=== PATIENT | female | born 1960 | race Caucasian/White ===

== ENCOUNTER 2018-03-04 16:36 | Emergency (ER) | payer MEDICARE, MEDICAID ==
[~2018-03-04] VITALS: Ht 165.1 cm; Wt 90.0 kg
[~2018-03-04 16:36] MED LIST: NAPR250T4 PO; ONDA4TAB12 PO; POTA99TA9 PO
[2018-03-04] MEDS ORDERED: LORazepam 2 mg/ml vial IV ONE (16:45)
[2018-03-04] MEDS ORDERED: haloperidol lactate 5mg/ml inj IM ONE (16:45)
[2018-03-04] MEDS ORDERED: normal saline 1000ML IV soln IVB ONE (16:45)
[2018-03-04] MEDS ORDERED: diphenhydrAMINE 50 mg/ml inj IV ONE (16:45)
[2018-03-04 17:20] LABS: ALANINE AMINOTRANSFERASE 30 U/L (12-78); ALBUMIN 4.3 G/DL (3.4-5.0); ALBUMIN/GLOBULIN RATIO 1.3 (1.1-1.5); ALKALINE PHOSPHATASE 131 IU/L (46-116); ANION GAP 12 (8-16); ASPARTATE AMINO TRANSFERASE 30 U/L (10-37); BILIRUBIN,TOTAL 0.9 MG/DL (0.1-1.0); BLOOD UREA NITROGEN 10 MG/DL (7-18); BUN/CREATININE RATIO 8.8 (6.6-38.0); CALCIUM 10.1 MG/DL (8.5-10.1); CHLORIDE 97 MMOL/L (99-107); CREATININE 1.13 MG/DL (0.40-0.90); GLUCOSE 154 MG/DL (70-104); SODIUM 136 MMOL/L (135-145); TOTAL CARBON DIOXIDE 27.2 MMOL/L (24-32); TOTAL PROTEIN 7.6 G/DL (6.4-8.2); eGFR 49 ML/MIN
[2018-03-04 17:21] LABS: POTASSIUM 4.1 MMOL/L (3.5-5.1)
[2018-03-04] MEDS ORDERED: proMETHazine 25mg tablet PO ONE (17:55)
[2018-03-04 17:59] LABS: BASOPHILS % (AUTO) 0.1 % (0-1); EOSINOPHILS % (AUTO) 0 % (0-6); LYMPHOCYTES # (AUTO) 0.6 X10'3 (1.1-4.8); LYMPHOCYTES % (AUTO) 5.9 % (21-51); MEAN CORPUSCULAR HEMOGLOBIN 29.8 PG (27.0-31.0); MEAN CORPUSCULAR HGB CONC 34.8 % (33.0-36.5); MEAN CORPUSCULAR VOLUME 85.7 FL (78-98); MEAN PLATELET VOLUME 7.7 FL (7.4-10.4); MONOCYTES # (AUTO) 0.2 X10'3 (0-0.9); MONOCYTES % (AUTO) 2.2 % (2-12); NEUTROPHILS # (AUTO) 9.3 X10'3 (1.8-7.7); NEUTROPHILS % (AUTO) 91.8 % (42-75); PLATELET COUNT 214 X10'3 (140-440); RED BLOOD COUNT 5.03 X10'6 (4.20-5.60); RED CELL DISTRIBUTION WIDTH 13.7 % (11.5-14.5); WHITE BLOOD COUNT 10.1 X10'3 (4.5-11.0)
[2018-03-04] MEDS ORDERED: PHE12.5T PO (18:35)
[2018-03-04] MEDS ORDERED: HYDROcodone/acetaminophen 10/325mg tab PO ONE (18:40)
[2018-03-04] MEDS ORDERED: ondansetron/PF 4mg/2ml inj IV ONE (19:30)
[2018-03-04] MEDS ORDERED: ketorolac trometh. 30mg/ml inj. IV ONE (19:30)
[2018-03-04 19:50] VITALS: BP 141/93
== END 2018-03-04 20:11 | disposition home or self-care (01) ==
LOC: ER 16:36
DX: G43.A1 Cyclical vomiting, in migraine, intractable (principal); E78.00 Pure hypercholesterolemia, unspecified; I10 Essential (primary) hypertension; J44.9 Chronic obstructive pulmonary disease, unspecified; G89.29 Other chronic pain; F12.10 Cannabis abuse, uncomplicated; Z87.442 Personal history of urinary calculi; Z90.49 Acquired absence of other specified parts of digestive tract; Z98.890 Other specified postprocedural states; Z56.0 Unemployment, unspecified
CPT/HCPCS: 36415; 80053; 85025; 96361; 96372; 96374; 96375; 99284; J1200; J1630; J1885; J2060; J2405; J7030; Q0169

== ENCOUNTER 2018-05-05 19:42 | Emergency (ER) | payer MEDICARE, MEDICAID ==
[~2018-05-05] VITALS: Ht 157.5 cm; Wt 90.9 kg
[~2018-05-05 19:42] MED LIST changes: +PHE12.5T PO
[2018-05-05 20:20] LABS: BASOPHILS % (AUTO) 0.2 % (0-1); EOSINOPHILS % (AUTO) 0 % (0-6); HEMATOCRIT 45.5 % (35.0-45.0); LYMPHOCYTES # (AUTO) 1.1 X10'3 (1.1-4.8); LYMPHOCYTES % (AUTO) 5.6 % (21-51); MEAN CORPUSCULAR HEMOGLOBIN 30.1 PG (27.0-31.0); MEAN CORPUSCULAR HGB CONC 35.2 % (33.0-36.5); MEAN CORPUSCULAR VOLUME 85.6 FL (78-98); MEAN PLATELET VOLUME 7.9 FL (7.4-10.4); MONOCYTES # (AUTO) 0.5 X10'3 (0-0.9); MONOCYTES % (AUTO) 2.6 % (2-12); NEUTROPHILS # (AUTO) 17.3 X10'3 (1.8-7.7); NEUTROPHILS % (AUTO) 91.6 % (42-75); PLATELET COUNT 302 X10'3 (140-440); RED BLOOD COUNT 5.32 X10'6 (4.20-5.60); RED CELL DISTRIBUTION WIDTH 13.3 % (11.5-14.5); WHITE BLOOD COUNT 18.9 X10'3 (4.5-11.0)
[2018-05-05 20:29] LABS: PROTHROMBIN TIME 10.3 SECONDS (9.0-12.0)
[2018-05-05 20:34] LABS: ALANINE AMINOTRANSFERASE 35 U/L (12-78); ALBUMIN 4.4 G/DL (3.4-5.0); ALBUMIN/GLOBULIN RATIO 1.2 (1.1-1.5); ALKALINE PHOSPHATASE 136 IU/L (46-116); ANION GAP 15 (8-16); ASPARTATE AMINO TRANSFERASE 24 U/L (10-37); BILIRUBIN,TOTAL 1.1 MG/DL (0.1-1.0); BLOOD UREA NITROGEN 18 MG/DL (7-18); CALCIUM 10.2 MG/DL (8.5-10.1); CHLORIDE 97 MMOL/L (99-107); CREATININE 1.99 MG/DL (0.40-0.90); GLUCOSE 171 MG/DL (70-104); POTASSIUM 3.7 MMOL/L (3.5-5.1); SODIUM 134 MMOL/L (135-145); TOTAL CARBON DIOXIDE 22.5 MMOL/L (24-32); TOTAL PROTEIN 8.2 G/DL (6.4-8.2); eGFR 26 ML/MIN
[2018-05-05] MEDS ORDERED: normal saline 1000ML IV soln IV ONE (20:40)
[2018-05-05] MEDS ORDERED: haloperidol lactate 5mg/ml inj IM ONE (20:40)
[2018-05-05] MEDS ORDERED: LORazepam 2 mg/ml vial IV ONE (20:40)
[2018-05-05] MEDS ORDERED: ondansetron/PF 4mg/2ml inj IV ONE (20:40)
[2018-05-05 22:54] VITALS: BP 148/87
== END 2018-05-05 23:03 | disposition home or self-care (01) ==
LOC: ER 19:43
DX: F12.288 Cannabis dependence with other cannabis-induced disorder (principal); G43.A0 Cyclical vomiting, in migraine, not intractable; E78.00 Pure hypercholesterolemia, unspecified; I10 Essential (primary) hypertension; J44.9 Chronic obstructive pulmonary disease, unspecified; Z90.49 Acquired absence of other specified parts of digestive tract; Z98.890 Other specified postprocedural states; Z56.0 Unemployment, unspecified; Z79.899 Other long term (current) drug therapy
CPT/HCPCS: 36415; 80053; 85025; 85610; 96361; 96372; 96374; 96375; 99284; J1630; J2060; J2405

== ENCOUNTER 2018-06-23 01:20 | Inpatient (IN) | payer MEDICARE, MEDICAID ==
[~2018-06-23] VITALS: Ht 157.5 cm; Wt 78.8 kg
[2018-06-23] VITALS (16 sets, daily range): BP systolic 80–115; BP diastolic 59–95
[2018-06-23] MEDS ORDERED: haloperidol lactate 5mg/ml inj IM STA (01:21)
[2018-06-23] MEDS ORDERED: diphenhydrAMINE 50 mg/ml inj IM STA (01:21)
[2018-06-23] MEDS ORDERED: LORazepam 2 mg/ml vial IM STA (01:21)
[2018-06-23] MEDS ORDERED: normal saline 1000ML IV soln IVB ONE (01:35)
[2018-06-23 01:49] LABS: CLARITY,URINE CLOUDY (Clear); COLOR,URINE AMBER (Yellow); GLUCOSE, URINE NEGATIVE (Neg); KETONES,URINE NEGATIVE (Neg); LEUKOCYTE ESTERASE ,URINE NEGATIVE (Neg); NITRITES, URINE NEGATIVE (Neg); OCCULT BLOOD,URINE LARGE (Neg); PROTEIN,URINE >=300 mg/dl (Neg)
[2018-06-23 01:52] LABS: UA COLLECTION TYPE FOLEY CATH
[2018-06-23 01:54] LABS: BASOPHILS % (AUTO) 0.1 % (0-1); EOSINOPHILS # (AUTO) 0.4 X10'3 (0-0.9); EOSINOPHILS % (AUTO) 1.8 % (0-6); HEMATOCRIT 45.3 % (35.0-45.0); HEMOGLOBIN 15.6 g/dl (12.0-16.0); LYMPHOCYTES # (AUTO) 1.4 X10'3 (1.1-4.8); LYMPHOCYTES % (AUTO) 6.9 % (21-51); MEAN CORPUSCULAR HEMOGLOBIN 29.7 PG (27.0-31.0); MEAN CORPUSCULAR HGB CONC 34.4 % (33.0-36.5); MEAN CORPUSCULAR VOLUME 86.3 FL (78-98); MEAN PLATELET VOLUME 7.9 FL (7.4-10.4); MONOCYTES # (AUTO) 0.7 X10'3 (0-0.9); MONOCYTES % (AUTO) 3.4 % (2-12); NEUTROPHILS # (AUTO) 17.5 X10'3 (1.8-7.7); NEUTROPHILS % (AUTO) 87.8 % (42-75); PLATELET COUNT 320 X10'3 (140-440); RED BLOOD COUNT 5.25 X10'6 (4.20-5.60); RED CELL DISTRIBUTION WIDTH 13.9 % (11.5-14.5)
[2018-06-23 02:01] LABS: URINE AMPHETAMINE SCREEN POSITIVE (Neg); URINE BARBITUATE SCREEN NEGATIVE (Neg); URINE BENZODIAZEPINES SCREEN NEGATIVE (Neg); URINE CANNABINOID SCREEN POSITIVE (Neg); URINE COCAINE SCREEN NEGATIVE (Neg); URINE METHADONE SCREEN NEGATIVE (Neg); URINE OPIATE SCREEN POSITIVE (Neg); URINE PHENCYCLIDINE SCREEN NEGATIVE (Neg)
[2018-06-23 02:06] LABS: PARTIAL THROMBOPLASTIN TIME 24 SECONDS (22-32); PROTHROMBIN TIME 10.7 SECONDS (9.0-12.0)
[2018-06-23] MEDS ORDERED: LORazepam 2 mg/ml vial IV ONE ×2 (02:15→03:00)
[2018-06-23 02:24] LABS: AMORPHOUS URATES 3+
[2018-06-23 02:25] LABS: BACTERIA,URINE 1+ /HPF (Neg); MUCUS STRANDS MODERATE /LPF (Neg); RBC,URINE 0-2 /HPF (0-2); SQUAMOUS EPITHELIAL CELL,UR MANY /LPF (FEW); WBC,URINE 0-4 /HPF (0-4)
[2018-06-23 02:35] LABS: ALANINE AMINOTRANSFERASE 67 U/L (12-78); ALBUMIN 4.2 G/DL (3.4-5.0); ALBUMIN/GLOBULIN RATIO 1.2 (1.1-1.5); ALKALINE PHOSPHATASE 144 IU/L (46-116); ANION GAP 17 (8-16); ASPARTATE AMINO TRANSFERASE 80 U/L (10-37); BILIRUBIN,TOTAL 1.1 MG/DL (0.1-1.0); BLOOD UREA NITROGEN 14 MG/DL (7-18); BUN/CREATININE RATIO 7.7 (6.6-38.0); CHLORIDE 96 MMOL/L (99-107); CREATININE 1.82 MG/DL (0.40-0.90); GLUCOSE 217 MG/DL (70-104); LACTIC SEPSIS 8.3 MMOL/L (0.4-2.0); POTASSIUM 3.5 MMOL/L (3.5-5.1); SODIUM 134 MMOL/L (135-145); TOTAL CARBON DIOXIDE 21.5 MMOL/L (24-32); TOTAL PROTEIN 7.7 G/DL (6.4-8.2); eGFR 28 ML/MIN
[2018-06-23 02:37] LABS: ETHANOL < 0.010 GM/DL (0.0-0.010); TROPONIN I < 0.04 NG/ML (0.0-0.05)
[2018-06-23] MEDS ORDERED: normal saline 1000ML IV soln IV ONE (03:05)
[2018-06-23] MEDS ORDERED: FENTANYL-0.9 % NACL/PF 100 ML IV ONE (03:30)
[2018-06-23] MEDS ORDERED: CefTRIAXone 2gm/D5W 50ml 50 ML IV ONE (03:35)
[2018-06-23] MEDS: midazolam 100mg in NS 100ml 100 ML IV PRN ×3 (03:48→19:25)
[2018-06-23 04:01] LABS: ABG BASE EXCESS -3.4 mmol/L (-2.0-3.0); ABG HCO3 21.4 mmol/L (22.0-26.0); ABG OXYGEN SATURATION 93.9 % (95-98); ABG PCO2 (T) 39.8 mmHg (32.0-45.0); ABG PH (T) 7.353 (7.350-7.450); ABG PO2 (T) 81.7 mmHg (83-108); FCOHb 0.9 % (0.5-1.5); FMetHb 0.2 % (0.3-1.12); FO2Hb 92.9 % (94-100); MINUTE VOLUME 5 L/min; PATIENT TEMPERATURE 37.9; PEEP 5 cm H2O; RESPIRATORY RATE 12 b/min; RESPIRATORY RATE (OBSERVED) 12 b/min; TIDAL VOLUME 400 mL; TOTAL HEMOGLOBIN 15.2 G/dl (12.0-16.0)
[2018-06-23] MEDS: metoprolol tartrate 1mg/ml inj IV SCH ×7 (04:59→06:11)
[2018-06-23] MEDS: K, MAG and/or Phos replacement - Verify level? MC SCH ×2 (05:10→08:00)
[2018-06-23] MEDS ORDERED: acetaminophen 325mg tablet PO PRN ×2 (05:10)
[2018-06-23] MEDS ORDERED: magnesium hydroxide 30ml (MOM) UD suspension PO PRN (05:10)
[2018-06-23] MEDS ORDERED: potassium Cl 40MEQ/NS 500ml 500 ML IV PRN (05:10)
[2018-06-23] MEDS ORDERED: potassium Cl 20 mEq SR tablet PO PRN (05:10)
[2018-06-23] MEDS ORDERED: morphine 4 MG/ML inj SYRINge IV PRN ×2 (05:10)
[2018-06-23] MEDS ORDERED: vancomycin/NS 1 GM ADD-VANTAGE 250 ML IV ONE (05:25)
[2018-06-23] MEDS: normal saline 1000ml 1,000 ML IV SCH ×2 (05:41→19:55)
[2018-06-23] MEDS ORDERED: vancomycin/NS 500MG ADD-VANT 100 ML IV ONE (07:30)
[2018-06-23] MEDS ORDERED: rocuronium bromide 100mg/10ml (10mg/ml) injection IV ONE (09:00)
[2018-06-23] MEDS ORDERED: etomidate 2mg/ml inj. ONE (09:00)
[2018-06-23] MEDS: enoxaparin 40mg/0.4ml syringe SUBCUT SCH (09:15)
[2018-06-23] MEDS: pantoprazole 40 MG vial IV SCH (09:15)
[2018-06-23] MEDS: piperacillin/tazo 3.375gm/50ml 50 ML IV SCH ×3 (09:16→19:54)
[2018-06-23] MEDS: lactobacillus rhamnosus 10,000 MMU CELLS/CAPSULE PO SCH (19:54)
[2018-06-23] MEDS ORDERED: normal saline 500ml IV soln 500 ML IV PRN (20:05)
[2018-06-23] MEDS: FENTANYL-0.9 % NACL/PF 100 ML IV PRN (20:49)
[2018-06-24] VITALS (23 sets, daily range): BP systolic 82–147; BP diastolic 50–90
[2018-06-24] MEDS: midazolam 100mg in NS 100ml 100 ML IV PRN ×4 (01:57→22:40)
[2018-06-24] MEDS: piperacillin/tazo 3.375gm/50ml 50 ML IV SCH ×4 (01:59→19:21)
[2018-06-24 03:21] LABS: ABG BASE EXCESS -1.4 mmol/L (-2.0-3.0); ABG HCO3 22.7 mmol/L (22.0-26.0); ABG OXYGEN SATURATION 94.8 % (95-98); ABG PCO2 (T) 37.6 mmHg (32.0-45.0); ABG PH (T) 7.403 (7.350-7.450); ABG PO2 (T) 81.5 mmHg (83-108); ALLEN'S TEST Positive; FCOHb 0.3 % (0.5-1.5); FMetHb 0.3 % (0.3-1.12); FO2Hb 94.2 % (94-100); MINUTE VOLUME 7 L/min; PEEP 5 cm H2O; RESPIRATORY RATE 16 b/min; RESPIRATORY RATE (OBSERVED) 16 b/min; TIDAL VOLUME 400 mL
[2018-06-24] MEDS: FENTANYL-0.9 % NACL/PF 100 ML IV PRN ×3 (03:49→19:09)
[2018-06-24] MEDS ORDERED: ziprasidone IM 20mg inj **IM only IM ONE (04:05)
[2018-06-24 05:24] LABS: BASOPHILS % (AUTO) 0.1 % (0-1); EOSINOPHILS % (AUTO) 0 % (0-6); HEMOGLOBIN 11.6 g/dl (12.0-16.0); LYMPHOCYTES # (AUTO) 1.1 X10'3 (1.1-4.8); LYMPHOCYTES % (AUTO) 13.1 % (21-51); MEAN CORPUSCULAR HEMOGLOBIN 30.5 PG (27.0-31.0); MEAN CORPUSCULAR HGB CONC 35.1 % (33.0-36.5); MEAN CORPUSCULAR VOLUME 86.9 FL (78-98); MEAN PLATELET VOLUME 7.9 FL (7.4-10.4); MONOCYTES # (AUTO) 0.5 X10'3 (0-0.9); MONOCYTES % (AUTO) 6.4 % (2-12); NEUTROPHILS # (AUTO) 6.5 X10'3 (1.8-7.7); NEUTROPHILS % (AUTO) 80.4 % (42-75); PLATELET COUNT 134 X10'3 (140-440); RED BLOOD COUNT 3.79 X10'6 (4.20-5.60); RED CELL DISTRIBUTION WIDTH 13.4 % (11.5-14.5); WHITE BLOOD COUNT 8.1 X10'3 (4.5-11.0)
[2018-06-24 05:32] LABS: ALANINE AMINOTRANSFERASE 76 U/L (12-78); ALBUMIN 2.7 G/DL (3.4-5.0); ALKALINE PHOSPHATASE 103 IU/L (46-116); ANION GAP 11 (8-16); ASPARTATE AMINO TRANSFERASE 106 U/L (10-37); BILIRUBIN,TOTAL 1.6 MG/DL (0.1-1.0); BLOOD UREA NITROGEN 16 MG/DL (7-18); BUN/CREATININE RATIO 14.5 (6.6-38.0); CALCIUM 7.8 MG/DL (8.5-10.1); CHLORIDE 105 MMOL/L (99-107); GLUCOSE 95 MG/DL (70-104); MAGNESIUM 1.2 MG/DL (1.5-2.4); PHOSPHORUS 1.9 MG/DL (2.3-4.5); SODIUM 141 MMOL/L (135-145); TOTAL CARBON DIOXIDE 24.8 MMOL/L (24-32); TOTAL PROTEIN 5.3 G/DL (6.4-8.2); eGFR 51 ML/MIN
[2018-06-24 05:34] LABS: POTASSIUM 2.7 MMOL/L (3.5-5.1)
[2018-06-24] MEDS: potassium Cl oral solution 20 MEQ/15 ML PO PRN ×2 (05:54→11:21)
[2018-06-24] MEDS: vancomycin/NS 1 GM ADD-VANTAGE 250 ML IV SCH (06:39)
[2018-06-24] MEDS: normal saline 1000ml 1,000 ML IV SCH (06:39)
[2018-06-24] MEDS: mineral oil/petrolatum ophthal oint EACHEYE SCH ×3 (08:00→19:21)
[2018-06-24] MEDS: K, MAG and/or Phos replacement - Verify level? MC SCH (08:00)
[2018-06-24] MEDS: pantoprazole 40 MG vial IV SCH (08:29)
[2018-06-24] MEDS: enoxaparin 40mg/0.4ml syringe SUBCUT SCH (08:30)
[2018-06-24] MEDS: lactobacillus rhamnosus 10,000 MMU CELLS/CAPSULE PO SCH ×2 (08:30→19:21)
[2018-06-24] MEDS: dexmedetomidin/NS 400mcg/100ml 100 ML IV SCH ×2 (09:58→19:10)
[2018-06-24 11:49] LABS: TOTAL CELLS COUNTED 100
[2018-06-24 11:50] LABS: PLATELET ESTIMATE DECREASED
[2018-06-24] MEDS ORDERED: BUSP15TA14 PO (13:32)
[2018-06-24] MEDS ORDERED: ONDA8TAB6 PO (13:32)
[2018-06-24] MEDS ORDERED: MIRT30TA8 PO (13:32)
[2018-06-24] MEDS ORDERED: LEVE10002 PO (13:32)
[2018-06-24] MEDS ORDERED: FOLI1TAB16 PO (13:32)
[2018-06-24] MEDS ORDERED: GABA-532 PO (13:32)
[2018-06-24] MEDS ORDERED: BUPR150T6 PO (13:32)
[2018-06-24] MEDS ORDERED: BUPR300T54 PO (13:32)
[2018-06-24] MEDS ORDERED: OMEP20CA10 PO (13:32)
[2018-06-24] MEDS ORDERED: OXCA150T14 PO (13:32)
[2018-06-24] MEDS ORDERED: AMLO10TA PO (13:32)
[2018-06-24] MEDS ORDERED: MELO-102 PO (13:32)
[2018-06-24] MEDS ORDERED: TRAZ-219 PO (13:32)
[2018-06-24] MEDS ORDERED: ERGO500041 PO (13:32)
[2018-06-24] MEDS ORDERED: PRAZ1CAP5 PO (13:32)
[2018-06-24] MEDS ORDERED: ATOR20TA66 PO (13:32)
[2018-06-24] MEDS ORDERED: LURA60TA2 PO (13:32)
[2018-06-24] MEDS: methylPREDNISolone sod succ 125mg/2ml vial IV SCH ×2 (14:30→19:21)
[2018-06-25] VITALS (24 sets, daily range): BP systolic 90–174; BP diastolic 55–104
[2018-06-25] MEDS: mineral oil/petrolatum ophthal oint EACHEYE SCH ×5 (02:49→22:26)
[2018-06-25] MEDS: piperacillin/tazo 3.375gm/50ml 50 ML IV SCH ×4 (02:49→20:00)
[2018-06-25] MEDS: methylPREDNISolone sod succ 125mg/2ml vial IV SCH ×5 (02:49→21:36)
[2018-06-25] MEDS: dexmedetomidin/NS 400mcg/100ml 100 ML IV SCH ×2 (03:25→16:57)
[2018-06-25 03:40] LABS: ABG BASE EXCESS -8.1 mmol/L (-2.0-3.0); ABG HCO3 16.3 mmol/L (22.0-26.0); ABG OXYGEN SATURATION 91.9 % (95-98); ABG PCO2 (T) 30.5 mmHg (32.0-45.0); ABG PH (T) 7.347 (7.350-7.450); ABG PO2 (T) 67.8 mmHg (83-108); ALLEN'S TEST Positive; FCOHb 0.3 % (0.5-1.5); FMetHb 0.1 % (0.3-1.12); FO2Hb 91.5 % (94-100); MINUTE VOLUME 7 L/min; PATIENT TEMPERATURE 37.1; PEEP 5 cm H2O; RESPIRATORY RATE 16 b/min; RESPIRATORY RATE (OBSERVED) 16 b/min; TIDAL VOLUME 400 mL; TOTAL HEMOGLOBIN 11.8 G/dl (12.0-16.0)
[2018-06-25] MEDS: FENTANYL-0.9 % NACL/PF 100 ML IV PRN (05:21)
[2018-06-25] MEDS: midazolam 100mg in NS 100ml 100 ML IV PRN (05:24)
[2018-06-25] MEDS: vancomycin/NS 1 GM ADD-VANTAGE 250 ML IV SCH (05:24)
[2018-06-25 05:53] LABS: BASOPHILS % (AUTO) 0.2 % (0-1); EOSINOPHILS % (AUTO) 0 % (0-6); LYMPHOCYTES # (AUTO) 0.7 X10'3 (1.1-4.8); LYMPHOCYTES % (AUTO) 11.3 % (21-51); MEAN CORPUSCULAR HEMOGLOBIN 30.7 PG (27.0-31.0); MEAN CORPUSCULAR HGB CONC 35.6 % (33.0-36.5); MEAN CORPUSCULAR VOLUME 86.2 FL (78-98); MEAN PLATELET VOLUME 8.2 FL (7.4-10.4); MONOCYTES # (AUTO) 0.1 X10'3 (0-0.9); NEUTROPHILS # (AUTO) 5.2 X10'3 (1.8-7.7); NEUTROPHILS % (AUTO) 87.5 % (42-75); PLATELET COUNT 127 X10'3 (140-440)
[2018-06-25 06:04] LABS: ALANINE AMINOTRANSFERASE 79 U/L (12-78); ALBUMIN 2.6 G/DL (3.4-5.0); ALBUMIN/GLOBULIN RATIO 0.9 (1.1-1.5); ALKALINE PHOSPHATASE 111 IU/L (46-116); ANION GAP 16 (8-16); ASPARTATE AMINO TRANSFERASE 66 U/L (10-37); BILIRUBIN,TOTAL 0.8 MG/DL (0.1-1.0); BLOOD UREA NITROGEN 28 MG/DL (7-18); BUN/CREATININE RATIO 25.2 (6.6-38.0); CALCIUM 7.9 MG/DL (8.5-10.1); CHLORIDE 108 MMOL/L (99-107); CREATININE 1.11 MG/DL (0.40-0.90); GLUCOSE 156 MG/DL (70-104); MAGNESIUM 1.7 MG/DL (1.5-2.4); PHOSPHORUS 3.4 MG/DL (2.3-4.5); POTASSIUM 3.3 MMOL/L (3.5-5.1); SODIUM 143 MMOL/L (135-145); TOTAL CARBON DIOXIDE 19.2 MMOL/L (24-32); TOTAL PROTEIN 5.6 G/DL (6.4-8.2); eGFR 50 ML/MIN
[2018-06-25] MEDS: K, MAG and/or Phos replacement - Verify level? MC SCH (08:00)
[2018-06-25] MEDS: lactobacillus rhamnosus 10,000 MMU CELLS/CAPSULE PO SCH ×3 (08:24→20:25)
[2018-06-25] MEDS: pantoprazole 40 MG vial IV SCH (08:24)
[2018-06-25] MEDS ORDERED: ondansetron 4mg rapidly disintigrating tab PO PRN (11:15)
[2018-06-25] MEDS: busPIRone 15mg tablet PO SCH ×3 (13:12→21:00)
[2018-06-25] MEDS: lurasidone 60mg tablet PO SCH (17:18)
[2018-06-25] MEDS: buPROPion SR 150mg tablet PO SCH ×2 (20:00→20:25)
[2018-06-25] MEDS: oxcarbazepine 150mg tablet PO SCH ×2 (20:00→20:25)
[2018-06-25] MEDS: gabapentin 300mg capsule PO SCH ×2 (20:00→20:25)
[2018-06-25] MEDS: mirtazapine 15mg tablet PO SCH ×2 (20:26→21:00)
[2018-06-25] MEDS: prazosin 1mg capsule PO SCH ×2 (20:26→21:00)
[2018-06-25] MEDS ORDERED: ziprasidone IM 20mg inj **IM only IM ONE (21:25)
[2018-06-25] MEDS ORDERED: LORazepam 2 mg/ml vial IV ONE (22:10)
[2018-06-26] VITALS (24 sets, daily range): BP systolic 90–178; BP diastolic 62–117
[2018-06-26] MEDS: dexmedetomidin/NS 400mcg/100ml 100 ML IV SCH ×4 (00:31→22:22)
[2018-06-26] MEDS ORDERED: ziprasidone IM 20mg inj **IM only IM ONE ×2 (01:30→20:15)
[2018-06-26] MEDS: piperacillin/tazo 3.375gm/50ml 50 ML IV SCH ×4 (02:45→19:57)
[2018-06-26] MEDS: methylPREDNISolone sod succ 125mg/2ml vial IV SCH ×4 (02:45→19:57)
[2018-06-26] MEDS ORDERED: LORazepam 2 mg/ml vial IV ONE (04:25)
[2018-06-26] MEDS ORDERED: morphine 4 MG/ML inj SYRINge IV ONE (04:25)
[2018-06-26] MEDS ORDERED: VANCOMYCIN LEVEL IV ONE (05:30)
[2018-06-26] MEDS: vancomycin/NS 1 GM ADD-VANTAGE 250 ML IV SCH ×2 (05:54→18:01)
[2018-06-26 06:08] LABS: BASOPHILS % (AUTO) 0 % (0-1); EOSINOPHILS % (AUTO) 0 % (0-6); HEMATOCRIT 37.1 % (35.0-45.0); LYMPHOCYTES # (AUTO) 0.4 X10'3 (1.1-4.8); LYMPHOCYTES % (AUTO) 1.6 % (21-51); MEAN CORPUSCULAR HEMOGLOBIN 30.5 PG (27.0-31.0); MEAN CORPUSCULAR VOLUME 87.2 FL (78-98); MEAN PLATELET VOLUME 8.1 FL (7.4-10.4); MONOCYTES # (AUTO) 0.8 X10'3 (0-0.9); NEUTROPHILS # (AUTO) 24.1 X10'3 (1.8-7.7); NEUTROPHILS % (AUTO) 95.4 % (42-75); PLATELET COUNT 274 X10'3 (140-440); RED BLOOD COUNT 4.25 X10'6 (4.20-5.60); RED CELL DISTRIBUTION WIDTH 13.8 % (11.5-14.5)
[2018-06-26 06:17] LABS: ALANINE AMINOTRANSFERASE 123 U/L (12-78); ALBUMIN 3.4 G/DL (3.4-5.0); ALKALINE PHOSPHATASE 124 IU/L (46-116); ANION GAP 21 (8-16); ASPARTATE AMINO TRANSFERASE 126 U/L (10-37); BILIRUBIN,TOTAL 0.9 MG/DL (0.1-1.0); BLOOD UREA NITROGEN 29 MG/DL (7-18); BUN/CREATININE RATIO 25.2 (6.6-38.0); CALCIUM 9.3 MG/DL (8.5-10.1); CHLORIDE 109 MMOL/L (99-107); CREATININE 1.15 MG/DL (0.40-0.90); GLUCOSE 145 MG/DL (70-104); MAGNESIUM 1.8 MG/DL (1.5-2.4); PHOSPHORUS 2.6 MG/DL (2.3-4.5); POTASSIUM 3.5 MMOL/L (3.5-5.1); PREALBUMIN 14.4 MG/DL (19-36); SODIUM 148 MMOL/L (135-145); TOTAL CARBON DIOXIDE 18.1 MMOL/L (24-32); TOTAL PROTEIN 6.9 G/DL (6.4-8.2); VANCOMYCIN,TROUGH 4.4 UG/ML (6.0-14.0); eGFR 48 ML/MIN
[2018-06-26 06:30] LABS: WHITE BLOOD COUNT 25.3 X10'3 (4.5-11.0)
[2018-06-26 06:42] LABS: PLATELET ESTIMATE NORMAL; TOTAL CELLS COUNTED 100
[2018-06-26 06:43] LABS: HYPERSEGMENTED NEUTROPHILS 1+
[2018-06-26] MEDS: morphine 4 MG/ML inj SYRINge IV PRN ×7 (07:18→23:23)
[2018-06-26] MEDS: LORazepam 2 mg/ml vial IV PRN ×5 (07:19→21:05)
[2018-06-26] MEDS ORDERED: folic acid 1mg tablet PO SCH (08:00)
[2018-06-26] MEDS: levetiracetam 250mg tablet PO SCH (08:00)
[2018-06-26] MEDS: oxcarbazepine 150mg tablet PO SCH ×2 (08:00→20:00)
[2018-06-26] MEDS: K, MAG and/or Phos replacement - Verify level? MC SCH (08:00)
[2018-06-26] MEDS: busPIRone 15mg tablet PO SCH ×3 (08:00→20:49)
[2018-06-26] MEDS ORDERED: non-formulary drug (Bupropion HCl (Bupropion Xl) 1 TAB) PO SCH (08:00)
[2018-06-26] MEDS: lactobacillus rhamnosus 10,000 MMU CELLS/CAPSULE PO SCH ×2 (08:00→20:00)
[2018-06-26] MEDS: mineral oil/petrolatum ophthal oint EACHEYE SCH ×3 (08:00→19:58)
[2018-06-26] MEDS: amLODIPine 5mg tablet PO SCH (08:00)
[2018-06-26] MEDS: gabapentin 300mg capsule PO SCH ×2 (08:00→20:00)
[2018-06-26] MEDS: buPROPion SR 150mg tablet PO SCH (08:00)
[2018-06-26] MEDS: atorvastatin 20mg tablet PO SCH (08:00)
[2018-06-26] MEDS: furosemide 40mg/4ml inj IV SCH ×2 (08:16→19:57)
[2018-06-26] MEDS: pantoprazole 40 MG vial IV SCH (08:16)
[2018-06-26] MEDS: folic acid inj. 2 MG, thiamine inj. 100 MG, MVI, adult No.4 with vit. K 10 ML in dextro... IV SCH ×4 (14:08)
[2018-06-26] MEDS: lurasidone 60mg tablet PO SCH (15:49)
[2018-06-26] MEDS: mirtazapine 15mg tablet PO SCH (20:50)
[2018-06-26] MEDS: prazosin 1mg capsule PO SCH (20:50)
[2018-06-27] VITALS (24 sets, daily range): BP systolic 90–173; BP diastolic 56–119
[2018-06-27] MEDS: LORazepam 2 mg/ml vial IV PRN ×5 (01:00→22:30)
[2018-06-27] MEDS: haloperidol lactate 5mg/ml inj IM PRN ×2 (01:59→23:09)
[2018-06-27] MEDS: mineral oil/petrolatum ophthal oint EACHEYE SCH ×4 (02:00→20:00)
[2018-06-27] MEDS: piperacillin/tazo 3.375gm/50ml 50 ML IV SCH ×2 (02:36→07:47)
[2018-06-27] MEDS: methylPREDNISolone sod succ 125mg/2ml vial IV SCH ×3 (02:36→20:21)
[2018-06-27 05:31] LABS: BASOPHILS % (AUTO) 0 % (0-1); EOSINOPHILS % (AUTO) 0 % (0-6); HEMATOCRIT 42.8 % (35.0-45.0); HEMOGLOBIN 12.7 g/dl (12.0-16.0); LYMPHOCYTES # (AUTO) 0.7 X10'3 (1.1-4.8); LYMPHOCYTES % (AUTO) 5.1 % (21-51); MEAN CORPUSCULAR HEMOGLOBIN 25.6 PG (27.0-31.0); MEAN CORPUSCULAR HGB CONC 29.7 % (33.0-36.5); MEAN CORPUSCULAR VOLUME 86.3 FL (78-98); MEAN PLATELET VOLUME 8.2 FL (7.4-10.4); MONOCYTES # (AUTO) 0.5 X10'3 (0-0.9); MONOCYTES % (AUTO) 3.4 % (2-12); NEUTROPHILS # (AUTO) 12.8 X10'3 (1.8-7.7); NEUTROPHILS % (AUTO) 91.5 % (42-75); PLATELET COUNT 220 X10'3 (140-440); RED BLOOD COUNT 4.96 X10'6 (4.20-5.60); RED CELL DISTRIBUTION WIDTH 13.5 % (11.5-14.5); WHITE BLOOD COUNT 13.9 X10'3 (4.5-11.0)
[2018-06-27] MEDS: vancomycin/NS 1 GM ADD-VANTAGE 250 ML IV SCH ×2 (05:40→17:13)
[2018-06-27] MEDS: morphine 4 MG/ML inj SYRINge IV PRN ×3 (05:50→13:07)
[2018-06-27] MEDS: dexmedetomidin/NS 400mcg/100ml 100 ML IV SCH (05:51)
[2018-06-27 06:05] LABS: ALANINE AMINOTRANSFERASE 168 U/L (12-78); ALBUMIN 3.7 G/DL (3.4-5.0); ALKALINE PHOSPHATASE 118 IU/L (46-116); ANION GAP 21 (8-16); ASPARTATE AMINO TRANSFERASE 165 U/L (10-37); BILIRUBIN,TOTAL 1.7 MG/DL (0.1-1.0); BLOOD UREA NITROGEN 34 MG/DL (7-18); BUN/CREATININE RATIO 21.9 (6.6-38.0); CALCIUM 9.7 MG/DL (8.5-10.1); CHLORIDE 105 MMOL/L (99-107); CREATININE 1.55 MG/DL (0.40-0.90); GLUCOSE 142 MG/DL (70-104); MAGNESIUM 1.6 MG/DL (1.5-2.4); PHOSPHORUS 2.4 MG/DL (2.3-4.5); SODIUM 149 MMOL/L (135-145); TOTAL CARBON DIOXIDE 22.9 MMOL/L (24-32); TOTAL PROTEIN 7.3 G/DL (6.4-8.2); eGFR 34 ML/MIN
[2018-06-27 06:28] LABS: POTASSIUM 2.8 MMOL/L (3.5-5.1)
[2018-06-27] MEDS ORDERED: LIDOcaine 1% 30ml vial 5 ML in potassium Cl 40MEQ/NS 500ml 500 ML IV PRN (07:30)
[2018-06-27] MEDS: atorvastatin 20mg tablet PO SCH (08:00)
[2018-06-27] MEDS: lactobacillus rhamnosus 10,000 MMU CELLS/CAPSULE PO SCH ×2 (08:00→20:19)
[2018-06-27] MEDS: gabapentin 300mg capsule PO SCH ×2 (08:00→20:18)
[2018-06-27] MEDS: levetiracetam 250mg tablet PO SCH (08:00)
[2018-06-27] MEDS: oxcarbazepine 150mg tablet PO SCH ×2 (08:00→20:20)
[2018-06-27] MEDS: busPIRone 15mg tablet PO SCH ×3 (08:00→20:20)
[2018-06-27] MEDS: amLODIPine 5mg tablet PO SCH (08:00)
[2018-06-27] MEDS: furosemide 40mg/4ml inj IV SCH (08:00)
[2018-06-27] MEDS: K, MAG and/or Phos replacement - Verify level? MC SCH (08:02)
[2018-06-27] MEDS: pantoprazole 40 MG vial IV SCH (08:21)
[2018-06-27] MEDS: folic acid inj. 2 MG, thiamine inj. 100 MG, MVI, adult No.4 with vit. K 10 ML in dextro... IV SCH ×4 (10:05)
[2018-06-27] MEDS ORDERED: ziprasidone IM 20mg inj **IM only IM ONE (13:50)
[2018-06-27] MEDS: lurasidone 60mg tablet PO SCH (17:00)
[2018-06-27] MEDS: mirtazapine 15mg tablet PO SCH (20:18)
[2018-06-27] MEDS: prazosin 1mg capsule PO SCH (20:23)
[2018-06-28] VITALS (24 sets, daily range): BP systolic 92–165; BP diastolic 58–102
[2018-06-28] MEDS: morphine 4 MG/ML inj SYRINge IV PRN ×2 (01:59→19:00)
[2018-06-28] MEDS ORDERED: glucagon, human recombinant 1mg kit SUBCUT PRN (02:30)
[2018-06-28] MEDS ORDERED: dextrose ORAL solution 15 GM/59 ML bottle PO PRN ×2 (02:30)
[2018-06-28] MEDS ORDERED: dextrose 50%-water 50ml dispensing syringe IV PRN ×2 (02:30)
[2018-06-28] MEDS ORDERED: MESSAGE TO PHARMACY PO ONE (02:30)
[2018-06-28] MEDS: LORazepam 2 mg/ml vial IV PRN ×2 (03:46→11:56)
[2018-06-28] MEDS: insulin Lispro (HumaLOG) vial - multi-dose SQ SCH (04:10)
[2018-06-28] MEDS ORDERED: VANCOMYCIN LEVEL IV NR (05:30)
[2018-06-28 05:58] LABS: BASOPHILS % (AUTO) 0 % (0-1); EOSINOPHILS # (AUTO) 0.1 X10'3 (0-0.9); EOSINOPHILS % (AUTO) 0.7 % (0-6); HEMATOCRIT 42.3 % (35.0-45.0); LYMPHOCYTES # (AUTO) 0.5 X10'3 (1.1-4.8); LYMPHOCYTES % (AUTO) 3.4 % (21-51); MEAN CORPUSCULAR HEMOGLOBIN 30.4 PG (27.0-31.0); MEAN CORPUSCULAR HGB CONC 35.5 % (33.0-36.5); MEAN CORPUSCULAR VOLUME 85.5 FL (78-98); MEAN PLATELET VOLUME 8.9 FL (7.4-10.4); MONOCYTES # (AUTO) 0.6 X10'3 (0-0.9); MONOCYTES % (AUTO) 3.9 % (2-12); PLATELET COUNT 185 X10'3 (140-440); RED BLOOD COUNT 4.95 X10'6 (4.20-5.60); RED CELL DISTRIBUTION WIDTH 14.1 % (11.5-14.5); WHITE BLOOD COUNT 15.2 X10'3 (4.5-11.0)
[2018-06-28] MEDS: vancomycin/NS 1 GM ADD-VANTAGE 250 ML IV SCH (07:15)
[2018-06-28] MEDS: folic acid inj. 2 MG, thiamine inj. 100 MG, MVI, adult No.4 with vit. K 10 ML in dextro... IV SCH ×4 (07:21)
[2018-06-28] MEDS: pantoprazole 40 MG vial IV SCH (07:22)
[2018-06-28] MEDS: amLODIPine 5mg tablet PO SCH (07:23)
[2018-06-28] MEDS: methylPREDNISolone sod succ 125mg/2ml vial IV SCH ×2 (07:23→20:20)
[2018-06-28] MEDS: oxcarbazepine 150mg tablet PO SCH ×2 (07:23→20:20)
[2018-06-28] MEDS: gabapentin 300mg capsule PO SCH ×2 (07:23→20:20)
[2018-06-28] MEDS: levetiracetam 250mg tablet PO SCH (07:23)
[2018-06-28] MEDS: atorvastatin 20mg tablet PO SCH (07:25)
[2018-06-28] MEDS: lactobacillus rhamnosus 10,000 MMU CELLS/CAPSULE PO SCH ×2 (07:25→20:20)
[2018-06-28] MEDS: busPIRone 15mg tablet PO SCH ×3 (07:25→20:21)
[2018-06-28] MEDS: K, MAG and/or Phos replacement - Verify level? MC SCH (08:00)
[2018-06-28 11:24] LABS: ALANINE AMINOTRANSFERASE 181 U/L (12-78); ALBUMIN 3.2 G/DL (3.4-5.0); ALKALINE PHOSPHATASE 90 IU/L (46-116); ANION GAP 16 (8-16); ASPARTATE AMINO TRANSFERASE 140 U/L (10-37); BILIRUBIN,TOTAL 1.2 MG/DL (0.1-1.0); BLOOD UREA NITROGEN 42 MG/DL (7-18); BUN/CREATININE RATIO 29.4 (6.6-38.0); CALCIUM 9.3 MG/DL (8.5-10.1); CHLORIDE 122 MMOL/L (99-107); CREATININE 1.43 MG/DL (0.40-0.90); GLUCOSE 246 MG/DL (70-104); MAGNESIUM 1.8 MG/DL (1.5-2.4); PHOSPHORUS 1.4 MG/DL (2.3-4.5); TOTAL CARBON DIOXIDE 22.9 MMOL/L (24-32); TOTAL PROTEIN 6.5 G/DL (6.4-8.2); eGFR 38 ML/MIN
[2018-06-28 11:27] LABS: POTASSIUM 2.6 MMOL/L (3.5-5.1); SODIUM 161 MMOL/L (135-145)
[2018-06-28] MEDS: dextrose 5%-water 1,000 ML IV SCH ×2 (11:55→19:03)
[2018-06-28] MEDS: dexmedetomidin/NS 400mcg/100ml 100 ML IV SCH (12:05)
[2018-06-28] MEDS: insulin regular, human vial - multi-dose SQ SCH ×2 (14:30→20:15)
[2018-06-28] MEDS: LIDOcaine 1% 30ml vial 5 ML in potassium Cl 40MEQ/NS 500ml 500 ML IV PRN ×2 (14:54→15:07)
[2018-06-28] MEDS: vancomycin inj 1,250 MG in normal saline 250ml IV soln 250 ML IV SCH (17:27)
[2018-06-28] MEDS: lurasidone 60mg tablet PO SCH (17:55)
[2018-06-28] MEDS: insulin glargine (Lantus) pen - multi-dose SQ SCH (20:16)
[2018-06-28] MEDS: prazosin 1mg capsule PO SCH (20:20)
[2018-06-28] MEDS: traZODone 50mg tablet PO PRN (20:20)
[2018-06-28] MEDS: mirtazapine 15mg tablet PO SCH (20:46)
[2018-06-29] VITALS (17 sets, daily range): BP systolic 97–144; BP diastolic 59–81
[2018-06-29] MEDS: dextrose 5%-water 1,000 ML IV SCH (03:32)
[2018-06-29] MEDS: insulin regular, human vial - multi-dose SQ SCH ×4 (03:42→21:19)
[2018-06-29] MEDS: vancomycin inj 1,250 MG in normal saline 250ml IV soln 250 ML IV SCH ×2 (06:06→17:14)
[2018-06-29 06:12] LABS: BASOPHILS % (AUTO) 0.1 % (0-1); EOSINOPHILS # (AUTO) 0.1 X10'3 (0-0.9); EOSINOPHILS % (AUTO) 1.3 % (0-6); HEMATOCRIT 36.2 % (35.0-45.0); HEMOGLOBIN 12.7 g/dl (12.0-16.0); LYMPHOCYTES # (AUTO) 0.3 X10'3 (1.1-4.8); LYMPHOCYTES % (AUTO) 3.8 % (21-51); MEAN CORPUSCULAR HEMOGLOBIN 30.7 PG (27.0-31.0); MEAN CORPUSCULAR HGB CONC 35.1 % (33.0-36.5); MEAN CORPUSCULAR VOLUME 87.4 FL (78-98); MEAN PLATELET VOLUME 9.1 FL (7.4-10.4); MONOCYTES # (AUTO) 0.2 X10'3 (0-0.9); MONOCYTES % (AUTO) 2.7 % (2-12); NEUTROPHILS # (AUTO) 8.3 X10'3 (1.8-7.7); NEUTROPHILS % (AUTO) 92.1 % (42-75); PLATELET COUNT 116 X10'3 (140-440); RED BLOOD COUNT 4.14 X10'6 (4.20-5.60); RED CELL DISTRIBUTION WIDTH 13.8 % (11.5-14.5)
[2018-06-29 06:36] LABS: ALANINE AMINOTRANSFERASE 160 U/L (12-78); ALBUMIN 2.7 G/DL (3.4-5.0); ALKALINE PHOSPHATASE 75 IU/L (46-116); ANION GAP 9 (8-16); ASPARTATE AMINO TRANSFERASE 80 U/L (10-37); BILIRUBIN,TOTAL 0.6 MG/DL (0.1-1.0); BLOOD UREA NITROGEN 40 MG/DL (7-18); CALCIUM 8.2 MG/DL (8.5-10.1); CHLORIDE 118 MMOL/L (99-107); CREATININE 1.25 MG/DL (0.40-0.90); GLUCOSE 334 MG/DL (70-104); MAGNESIUM 1.9 MG/DL (1.5-2.4); PHOSPHORUS 2.2 MG/DL (2.3-4.5); SODIUM 154 MMOL/L (135-145); TOTAL CARBON DIOXIDE 26.7 MMOL/L (24-32); TOTAL PROTEIN 5.4 G/DL (6.4-8.2); eGFR 44 ML/MIN
[2018-06-29 06:38] LABS: POTASSIUM 2.6 MMOL/L (3.5-5.1)
[2018-06-29] MEDS: K, MAG and/or Phos replacement - Verify level? MC SCH (07:04)
[2018-06-29] MEDS ORDERED: sodium phosphate inj. 15 MMOL in dextrose 5%-water 150 ML IV PRN ×2 (07:10→07:20)
[2018-06-29] MEDS ORDERED: Neutra Phos packet PO PRN (07:10)
[2018-06-29] MEDS ORDERED: sodium phosphate inj. 30 MMOL in dextrose 5%-water 250 ML IV PRN (07:10)
[2018-06-29] MEDS ORDERED: potassium phosphate inj 15 MMOL in dextrose 5%-water 150 ML IV ONE (07:20)
[2018-06-29] MEDS: methylPREDNISolone sod succ 125mg/2ml vial IV SCH ×2 (08:20→19:35)
[2018-06-29] MEDS: gabapentin 300mg capsule PO SCH ×2 (08:21→19:29)
[2018-06-29] MEDS: atorvastatin 20mg tablet PO SCH (08:21)
[2018-06-29] MEDS: pantoprazole 40 MG vial IV SCH (08:21)
[2018-06-29] MEDS: levetiracetam 250mg tablet PO SCH (08:21)
[2018-06-29] MEDS: amLODIPine 5mg tablet PO SCH (08:21)
[2018-06-29] MEDS: oxcarbazepine 150mg tablet PO SCH ×2 (08:22→19:28)
[2018-06-29] MEDS: folic acid inj. 2 MG, thiamine inj. 100 MG, MVI, adult No.4 with vit. K 10 ML in dextro... IV SCH ×4 (08:22)
[2018-06-29] MEDS: lactobacillus rhamnosus 10,000 MMU CELLS/CAPSULE PO SCH ×2 (08:22→19:29)
[2018-06-29] MEDS: busPIRone 15mg tablet PO SCH ×3 (08:22→20:43)
[2018-06-29] MEDS: potassium Cl 40MEQ/NS 500ml 500 ML IV PRN (11:07)
[2018-06-29] MEDS: lurasidone 60mg tablet PO SCH (16:10)
[2018-06-29] MEDS: prazosin 1mg capsule PO SCH (20:43)
[2018-06-29] MEDS: mirtazapine 15mg tablet PO SCH (20:43)
[2018-06-29] MEDS: insulin glargine (Lantus) pen - multi-dose SQ SCH (21:24)
[2018-06-30] MEDS: insulin regular, human vial - multi-dose SQ SCH (02:30)
[2018-06-30 03:00] VITALS: BP 115/53
[2018-06-30] MEDS ORDERED: VANCOMYCIN LEVEL IV ONE (05:30)
[2018-06-30 06:00] VITALS: BP 145/78
[2018-06-30 06:05] LABS: BASOPHILS # (AUTO) 0.1 X10'3 (0-0.2); BASOPHILS % (AUTO) 0.5 % (0-1); EOSINOPHILS # (AUTO) 0.2 X10'3 (0-0.9); HEMATOCRIT 36.2 % (35.0-45.0); HEMOGLOBIN 12.3 g/dl (12.0-16.0); LYMPHOCYTES # (AUTO) 0.6 X10'3 (1.1-4.8); LYMPHOCYTES % (AUTO) 3.5 % (21-51); MEAN CORPUSCULAR VOLUME 88.3 FL (78-98); MEAN PLATELET VOLUME 9.1 FL (7.4-10.4); MONOCYTES # (AUTO) 0.5 X10'3 (0-0.9); MONOCYTES % (AUTO) 2.9 % (2-12); NEUTROPHILS # (AUTO) 14.5 X10'3 (1.8-7.7); NEUTROPHILS % (AUTO) 92.1 % (42-75); PLATELET COUNT 122 X10'3 (140-440); RED BLOOD COUNT 4.11 X10'6 (4.20-5.60); RED CELL DISTRIBUTION WIDTH 14.2 % (11.5-14.5); WHITE BLOOD COUNT 15.8 X10'3 (4.5-11.0)
[2018-06-30 06:23] LABS: ALANINE AMINOTRANSFERASE 145 U/L (12-78); ALBUMIN 2.5 G/DL (3.4-5.0); ALKALINE PHOSPHATASE 71 IU/L (46-116); ANION GAP 9 (8-16); ASPARTATE AMINO TRANSFERASE 75 U/L (10-37); BILIRUBIN,TOTAL 0.6 MG/DL (0.1-1.0); BLOOD UREA NITROGEN 34 MG/DL (7-18); BUN/CREATININE RATIO 35.8 (6.6-38.0); CALCIUM 8.2 MG/DL (8.5-10.1); CHLORIDE 118 MMOL/L (99-107); CREATININE 0.95 MG/DL (0.40-0.90); GLUCOSE 187 MG/DL (70-104); MAGNESIUM 1.9 MG/DL (1.5-2.4); PHOSPHORUS 2.8 MG/DL (2.3-4.5); PREALBUMIN 18.2 MG/DL (19-36); SODIUM 153 MMOL/L (135-145); TOTAL PROTEIN 4.9 G/DL (6.4-8.2); VANCOMYCIN,TROUGH 16.9 UG/ML (6.0-14.0); eGFR 60 ML/MIN
[2018-06-30 06:59] LABS: POTASSIUM 2.8 MMOL/L (3.5-5.1)
[2018-06-30] MEDS: K, MAG and/or Phos replacement - Verify level? MC SCH (08:00)
[2018-06-30] MEDS: levetiracetam 250mg tablet PO SCH (08:30)
[2018-06-30] MEDS: lactobacillus rhamnosus 10,000 MMU CELLS/CAPSULE PO SCH ×2 (08:30→20:02)
[2018-06-30] MEDS: gabapentin 300mg capsule PO SCH ×2 (08:30→20:02)
[2018-06-30] MEDS: atorvastatin 20mg tablet PO SCH (08:30)
[2018-06-30] MEDS: oxcarbazepine 150mg tablet PO SCH ×2 (08:30→20:02)
[2018-06-30] MEDS: busPIRone 15mg tablet PO SCH ×3 (08:31→20:02)
[2018-06-30] MEDS: methylPREDNISolone sod succ 125mg/2ml vial IV SCH (08:31)
[2018-06-30] MEDS: amLODIPine 5mg tablet PO SCH (08:31)
[2018-06-30] MEDS: pantoprazole 40 MG vial IV SCH (08:32)
[2018-06-30] MEDS: potassium Cl 40MEQ/NS 500ml 500 ML IV PRN ×2 (08:34→14:05)
[2018-06-30] MEDS: insulin Lispro (HumaLOG) vial - multi-dose SQ SCH ×2 (08:52→14:27)
[2018-06-30] MEDS: vancomycin inj 1,250 MG in normal saline 250ml IV soln 250 ML IV SCH ×2 (09:01→20:01)
[2018-06-30] MEDS: folic acid inj. 2 MG, thiamine inj. 100 MG, MVI, adult No.4 with vit. K 10 ML in dextro... IV SCH ×4 (09:43)
[2018-06-30] MEDS: mineral oil/petrolatum ophthal oint EACHEYE SCH (10:04)
[2018-06-30 11:00] VITALS: BP 129/70
[2018-06-30 15:00] VITALS: BP 149/81
[2018-06-30] MEDS: lurasidone 60mg tablet PO SCH (17:18)
[2018-06-30 19:00] VITALS: BP 127/80
[2018-06-30] MEDS: prazosin 1mg capsule PO SCH (20:02)
[2018-06-30] MEDS: traZODone 50mg tablet PO PRN (20:02)
[2018-06-30] MEDS: nystatin 15 GM powder TP SCH (20:03)
[2018-06-30] MEDS: mirtazapine 15mg tablet PO SCH (20:04)
[2018-06-30] MEDS: NYSTATIN CREAM - 30GM TUBE TP SCH (20:24)
[2018-06-30] MEDS ORDERED: HYDROcodone/acetaminophen 10/325mg tab PO PRN (22:00)
[2018-06-30] MEDS: HYDROcodone/acetaminophen 10/325mg tab PO PRN (22:17)
[2018-06-30 23:00] VITALS: BP 135/63
[2018-07-01 02:00] VITALS: BP 135/87
[2018-07-01] MEDS: vancomycin inj 1,250 MG in normal saline 250ml IV soln 250 ML IV SCH ×2 (05:31→18:18)
[2018-07-01 06:00] VITALS: BP 144/76
[2018-07-01 06:06] LABS: BASOPHILS % (AUTO) 0.2 % (0-1); EOSINOPHILS # (AUTO) 0.2 X10'3 (0-0.9); EOSINOPHILS % (AUTO) 1.7 % (0-6); HEMATOCRIT 34.3 % (35.0-45.0); HEMOGLOBIN 11.9 g/dl (12.0-16.0); LYMPHOCYTES # (AUTO) 1.2 X10'3 (1.1-4.8); MEAN CORPUSCULAR HEMOGLOBIN 30.4 PG (27.0-31.0); MEAN CORPUSCULAR HGB CONC 34.7 % (33.0-36.5); MEAN CORPUSCULAR VOLUME 87.5 FL (78-98); MEAN PLATELET VOLUME 9.6 FL (7.4-10.4); MONOCYTES # (AUTO) 0.5 X10'3 (0-0.9); MONOCYTES % (AUTO) 3.5 % (2-12); NEUTROPHILS # (AUTO) 11.7 X10'3 (1.8-7.7); NEUTROPHILS % (AUTO) 85.6 % (42-75); PLATELET COUNT 130 X10'3 (140-440); RED BLOOD COUNT 3.91 X10'6 (4.20-5.60); RED CELL DISTRIBUTION WIDTH 13.8 % (11.5-14.5); WHITE BLOOD COUNT 13.7 X10'3 (4.5-11.0)
[2018-07-01 06:24] LABS: ALANINE AMINOTRANSFERASE 173 U/L (12-78); ALBUMIN 2.4 G/DL (3.4-5.0); ALKALINE PHOSPHATASE 77 IU/L (46-116); ANION GAP 6 (8-16); ASPARTATE AMINO TRANSFERASE 114 U/L (10-37); BILIRUBIN,TOTAL 0.6 MG/DL (0.1-1.0); BLOOD UREA NITROGEN 26 MG/DL (7-18); BUN/CREATININE RATIO 27.7 (6.6-38.0); CALCIUM 8.3 MG/DL (8.5-10.1); CHLORIDE 114 MMOL/L (99-107); CREATININE 0.94 MG/DL (0.40-0.90); GLUCOSE 93 MG/DL (70-104); MAGNESIUM 1.6 MG/DL (1.5-2.4); PHOSPHORUS 3.4 MG/DL (2.3-4.5); POTASSIUM 3.1 MMOL/L (3.5-5.1); SODIUM 147 MMOL/L (135-145); TOTAL CARBON DIOXIDE 26.6 MMOL/L (24-32); TOTAL PROTEIN 4.8 G/DL (6.4-8.2); eGFR 61 ML/MIN
[2018-07-01] MEDS: K, MAG and/or Phos replacement - Verify level? MC SCH (08:00)
[2018-07-01] MEDS: pantoprazole 40mg Tablet.DR PO SCH (08:55)
[2018-07-01] MEDS: methylPREDNISolone sod succ/PF 40mg inj. IV SCH (08:55)
[2018-07-01] MEDS: busPIRone 15mg tablet PO SCH ×3 (08:55→20:10)
[2018-07-01] MEDS: lactobacillus rhamnosus 10,000 MMU CELLS/CAPSULE PO SCH ×2 (08:55→20:10)
[2018-07-01] MEDS: gabapentin 300mg capsule PO SCH ×2 (08:56→20:10)
[2018-07-01] MEDS: levetiracetam 250mg tablet PO SCH (08:56)
[2018-07-01] MEDS: thiamine 100mg tablet PO SCH (08:56)
[2018-07-01] MEDS: folic acid/vitamin B complex w/vitamin C 0.8mg tablet PO SCH (08:56)
[2018-07-01] MEDS: atorvastatin 20mg tablet PO SCH (08:56)
[2018-07-01] MEDS: oxcarbazepine 150mg tablet PO SCH ×2 (08:56→20:10)
[2018-07-01] MEDS: amLODIPine 5mg tablet PO SCH (08:56)
[2018-07-01 10:00] VITALS: BP 144/77
[2018-07-01] MEDS: potassium Cl 20 mEq SR tablet PO PRN ×2 (14:17→20:10)
[2018-07-01] MEDS: NYSTATIN CREAM - 30GM TUBE TP SCH ×2 (14:19→20:12)
[2018-07-01] MEDS: nystatin 15 GM powder TP SCH ×2 (14:21→20:00)
[2018-07-01 18:00] VITALS: BP 156/94
[2018-07-01] MEDS: lurasidone 60mg tablet PO SCH (18:16)
[2018-07-01] MEDS: traZODone 50mg tablet PO PRN (20:10)
[2018-07-01] MEDS: mirtazapine 15mg tablet PO SCH (20:10)
[2018-07-01] MEDS: prazosin 1mg capsule PO SCH (20:10)
[2018-07-01] MEDS: HYDROcodone/acetaminophen 10/325mg tab PO PRN (20:11)
[2018-07-01 22:00] VITALS: BP 130/76
[2018-07-02] MEDS: potassium Cl 20 mEq SR tablet PO PRN (02:42)
[2018-07-02] MEDS: vancomycin inj 1,250 MG in normal saline 250ml IV soln 250 ML IV SCH (05:33)
[2018-07-02 06:00] VITALS: BP 124/70
[2018-07-02 06:11] LABS: ALANINE AMINOTRANSFERASE 210 U/L (12-78); ALBUMIN 2.4 G/DL (3.4-5.0); ALKALINE PHOSPHATASE 84 IU/L (46-116); ANION GAP 6 (8-16); ASPARTATE AMINO TRANSFERASE 94 U/L (10-37); BILIRUBIN,TOTAL 0.5 MG/DL (0.1-1.0); BLOOD UREA NITROGEN 18 MG/DL (7-18); BUN/CREATININE RATIO 21.7 (6.6-38.0); CALCIUM 8.2 MG/DL (8.5-10.1); CHLORIDE 111 MMOL/L (99-107); CREATININE 0.83 MG/DL (0.40-0.90); GLUCOSE 110 MG/DL (70-104); MAGNESIUM 1.5 MG/DL (1.5-2.4); PHOSPHORUS 3.7 MG/DL (2.3-4.5); POTASSIUM 3.2 MMOL/L (3.5-5.1); SODIUM 145 MMOL/L (135-145); TOTAL CARBON DIOXIDE 27.7 MMOL/L (24-32); TOTAL PROTEIN 4.9 G/DL (6.4-8.2); eGFR 70 ML/MIN
[2018-07-02 06:32] LABS: BASOPHILS # (AUTO) 0.1 X10'3 (0-0.2); BASOPHILS % (AUTO) 0.5 % (0-1); EOSINOPHILS % (AUTO) 0.1 % (0-6); HEMATOCRIT 34.2 % (35.0-45.0); HEMOGLOBIN 11.9 g/dl (12.0-16.0); LYMPHOCYTES % (AUTO) 10.2 % (21-51); MEAN CORPUSCULAR HEMOGLOBIN 31.1 PG (27.0-31.0); MEAN CORPUSCULAR HGB CONC 34.9 % (33.0-36.5); MEAN CORPUSCULAR VOLUME 89.1 FL (78-98); MEAN PLATELET VOLUME 9.7 FL (7.4-10.4); MONOCYTES # (AUTO) 0.4 X10'3 (0-0.9); MONOCYTES % (AUTO) 4.3 % (2-12); NEUTROPHILS # (AUTO) 8.5 X10'3 (1.8-7.7); NEUTROPHILS % (AUTO) 84.9 % (42-75); PLATELET COUNT 118 X10'3 (140-440); RED BLOOD COUNT 3.84 X10'6 (4.20-5.60); RED CELL DISTRIBUTION WIDTH 13.1 % (11.5-14.5)
[2018-07-02] MEDS: K, MAG and/or Phos replacement - Verify level? MC SCH (06:49)
[2018-07-02] MEDS: methylPREDNISolone sod succ/PF 40mg inj. IV SCH (08:44)
[2018-07-02] MEDS: pantoprazole 40mg Tablet.DR PO SCH (08:44)
[2018-07-02] MEDS: thiamine 100mg tablet PO SCH (08:45)
[2018-07-02] MEDS: atorvastatin 20mg tablet PO SCH (08:45)
[2018-07-02] MEDS: levetiracetam 250mg tablet PO SCH (08:45)
[2018-07-02] MEDS: amLODIPine 5mg tablet PO SCH (08:45)
[2018-07-02] MEDS: busPIRone 15mg tablet PO SCH (08:45)
[2018-07-02] MEDS: folic acid/vitamin B complex w/vitamin C 0.8mg tablet PO SCH (08:45)
[2018-07-02] MEDS: gabapentin 300mg capsule PO SCH (08:45)
[2018-07-02] MEDS: lactobacillus rhamnosus 10,000 MMU CELLS/CAPSULE PO SCH (08:45)
[2018-07-02] MEDS: oxcarbazepine 150mg tablet PO SCH (08:46)
[2018-07-02] MEDS: nystatin 15 GM powder TP SCH (09:07)
[2018-07-02] MEDS: NYSTATIN CREAM - 30GM TUBE TP SCH (09:07)
== END 2018-07-02 10:55 | disposition home or self-care (01) | DRG 871 ==
LOC: ER 01:21 → ED HOLD 05:08 → CICU 2S 06:52 → ICU 2S 06-25 18:25 → PCU 3S 06-29 15:49 → ORTHO 4S 07-01 01:50
PROVIDERS: ADMIT Internal Medicine; ATTEND Internal Medicine Critical Care Medicine
PROC: 5A1945Z Respiratory Ventilation, 24-96 Consecutive Hours (ICD-10-PCS; principal; 2018-06-23)
PROC: 0BH17EZ Insertion of Endotracheal Airway into Trachea, Via Natural or Artificial Opening (ICD-10-PCS; 2018-06-23)
DX: A41.9 Sepsis, unspecified organism (principal); J69.0 Pneumonitis due to inhalation of food and vomit; J96.00 Acute respiratory failure, unspecified whether with hypoxia or hypercapnia; G92 Toxic encephalopathy; E87.0 Hyperosmolality and hypernatremia; N17.9 Acute kidney failure, unspecified; N39.0 Urinary tract infection, site not specified; J44.9 Chronic obstructive pulmonary disease, unspecified; F32.9 Major depressive disorder, single episode, unspecified; F41.9 Anxiety disorder, unspecified; F15.129 Other stimulant abuse with intoxication, unspecified; F19.129 Other psychoactive substance abuse with intoxication, unspecified; G89.29 Other chronic pain; M54.9 Dorsalgia, unspecified; E78.00 Pure hypercholesterolemia, unspecified; F11.10 Opioid abuse, uncomplicated; F12.90 Cannabis use, unspecified, uncomplicated; I10 Essential (primary) hypertension; Z90.49 Acquired absence of other specified parts of digestive tract; Z78.1 Physical restraint status; Z79.899 Other long term (current) drug therapy; Z87.442 Personal history of urinary calculi; Z87.891 Personal history of nicotine dependence; Y92.89 Other specified places as the place of occurrence of the external cause
CPT/HCPCS: 36415; 36600; 70450; 71045; 74018; 80053; 80202; 80305; 80320; 81001; 82140; 82803; 82948; 83036; 83605; 83735; 84100; 84134; 84484; 85007; 85018; 85025; 85610; 85730; 87040; 87070; 87077; 87186; 87324; 87449; 92616; 93005; 94002; 94003; 94760; 96361; 96365; 96372; 96375; 96376; 97110; 97116; 97161; 99291; A4333; A4649; A6213; A6250; A6258; C1758; C9113; J0696; J1200; J1630; J1650; J1815; J1940; J2060; J2250; J2270; J2543; J2920; J2930; J3370; J3411; J3480; J3486; J3490; J7030; J7060; J7070

== ENCOUNTER 2019-03-17 08:28 | Emergency (ER) | payer MEDICARE, MEDICAID ==
[~2019-03-17] VITALS: Ht 165.1 cm; Wt 68.2 kg
[~2019-03-17 08:28] MED LIST changes: +AMLO10TA PO; +ATOR20TA66 PO; +BUSP15TA14 PO; +ERGO500041 PO; +FOLI1TAB16 PO; +GABA-532 PO; +LEVE10002 PO; +LURA60TA2 PO; +MIRT30TA8 PO; -NAPR250T4 PO; +OMEP20CA10 PO; -ONDA4TAB12 PO; +ONDA8TAB6 PO; +OXCA150T14 PO; -PHE12.5T PO; -POTA99TA9 PO; +PRAZ1CAP5 PO; +TRAZ-219 PO
[2019-03-17 08:32] VITALS: BP 163/87
[2019-03-17] MEDS ORDERED: haloperidol lactate 5mg/ml inj IM ONE (08:40)
[2019-03-17] MEDS ORDERED: normal saline 1000ML IV soln IVB ONE (08:40)
[2019-03-17] MEDS ORDERED: LORazepam 2 mg/ml vial IV ONE (08:40)
[2019-03-17 09:44] LABS: BASOPHILS % (AUTO) 0.1 % (0-1); EOSINOPHILS % (AUTO) 0 % (0-6); HEMATOCRIT 40.4 % (35.0-45.0); HEMOGLOBIN 14.4 g/dl (12.0-16.0); LYMPHOCYTES # (AUTO) 0.4 X10'3 (1.1-4.8); LYMPHOCYTES % (AUTO) 5.4 % (21-51); MEAN CORPUSCULAR HEMOGLOBIN 29.9 PG (27.0-31.0); MEAN CORPUSCULAR HGB CONC 35.6 g/dL (33.0-36.5); MEAN PLATELET VOLUME 7.3 FL (7.4-10.4); MONOCYTES # (AUTO) 0.2 X10'3 (0-0.9); MONOCYTES % (AUTO) 2.9 % (2-12); NEUTROPHILS % (AUTO) 91.6 % (42-75); PLATELET COUNT 250 X10'3 (140-440); RED BLOOD COUNT 4.82 X10'6 (4.20-5.60); RED CELL DISTRIBUTION WIDTH 13.1 % (11.5-14.5); WHITE BLOOD COUNT 7.6 X10'3 (4.5-11.0)
[2019-03-17 09:55] LABS: ALANINE AMINOTRANSFERASE 19 U/L (12-78); ALBUMIN 3.9 G/DL (3.4-5.0); ALBUMIN/GLOBULIN RATIO 1.2 (1.1-1.5); ALKALINE PHOSPHATASE 122 IU/L (46-116); ANION GAP 8 (8-16); ASPARTATE AMINO TRANSFERASE 16 U/L (10-37); BILIRUBIN,TOTAL 0.6 MG/DL (0.1-1.0); BLOOD UREA NITROGEN 8 MG/DL (7-18); BUN/CREATININE RATIO 9.6 (6.6-38.0); CALCIUM 9.5 MG/DL (8.5-10.1); CHLORIDE 92 MMOL/L (99-107); CREATININE 0.83 MG/DL (0.40-0.90); GLUCOSE 144 MG/DL (70-104); LIPASE 97 U/L (73-393); POTASSIUM 3.9 MMOL/L (3.5-5.1); SODIUM 126 MMOL/L (135-145); TOTAL PROTEIN 7.1 G/DL (6.4-8.2); eGFR 70 ML/MIN
[2019-03-17 10:16] LABS: CLARITY,URINE CLOUDY (Clear); COLOR,URINE YELLOW (Yellow); GLUCOSE, URINE NEGATIVE (Neg); KETONES,URINE 15 mg/dl (Neg); LEUKOCYTE ESTERASE ,URINE NEGATIVE (Neg); NITRITES, URINE NEGATIVE (Neg); OCCULT BLOOD,URINE NEGATIVE (Neg); PROTEIN,URINE NEGATIVE (Neg); UROBILINOGEN,URINE 0.2 E.U/dL (0.2-1.0)
[2019-03-17] MEDS ORDERED: ONDA4TAB6 PO (10:23)
[2019-03-17 10:29] LABS: UA COLLECTION TYPE STRAIGHT CATH
[2019-03-17 10:32] LABS: AMORPHOUS PHOSPHATES 4+; BACTERIA,URINE NONE SEEN /HPF (Neg); RBC,URINE 0-2 /HPF (0-2); SQUAMOUS EPITHELIAL CELL,UR NONE SEEN /LPF (FEW); WBC,URINE NONE SEEN /HPF (0-4)
== END 2019-03-17 10:48 | disposition home or self-care (01) ==
LOC: ER 08:28
DX: G43.A0 Cyclical vomiting, in migraine, not intractable (principal); E86.0 Dehydration; E87.1 Hypo-osmolality and hyponatremia; R53.1 Weakness; F12.90 Cannabis use, unspecified, uncomplicated; E78.00 Pure hypercholesterolemia, unspecified; I10 Essential (primary) hypertension; J44.9 Chronic obstructive pulmonary disease, unspecified; G89.29 Other chronic pain; Z90.49 Acquired absence of other specified parts of digestive tract; Z98.890 Other specified postprocedural states; Z56.0 Unemployment, unspecified; Z79.899 Other long term (current) drug therapy
CPT/HCPCS: 36415; 80053; 81001; 83690; 85025; 96372; 96374; 99283; J1630; J2060; J7030

== ENCOUNTER 2019-09-30 12:06 | Emergency (ER) | payer MEDICARE, MEDICAID ==
[~2019-09-30] VITALS: Ht 160 cm; Wt 67.0 kg
[~2019-09-30 12:06] MED LIST changes: -BUSP15TA14 PO; +BUSP15TA8 PO; +OMEP-297 PO; -OMEP20CA10 PO; +ONDA4TAB6 PO
[2019-09-30] MEDS ORDERED: diphenhydrAMINE 50 mg/ml inj IM ONE (13:15)
[2019-09-30] MEDS ORDERED: haloperidol lactate 5mg/ml inj IM ONE (13:15)
[2019-09-30] MEDS ORDERED: normal saline 1000ML IV soln IV ONE (13:20)
[2019-09-30] MEDS ORDERED: LORazepam 2 mg/ml vial IV ONE ×2 (13:20→16:00)
[2019-09-30] MEDS ORDERED: ondansetron/PF 4mg/2ml inj IV ONE (16:00)
[2019-09-30] MEDS ORDERED: ipratropium/albuterol 3ml nebule NEB ONE (16:45)
[2019-09-30 17:08] VITALS: BP 183/92
== END 2019-09-30 17:08 | disposition home or self-care (01) ==
LOC: ER 12:06
DX: R11.15 Cyclical vomiting syndrome unrelated to migraine (principal); R11.2 Nausea with vomiting, unspecified; E78.00 Pure hypercholesterolemia, unspecified; I10 Essential (primary) hypertension; J44.9 Chronic obstructive pulmonary disease, unspecified; G89.29 Other chronic pain; F41.9 Anxiety disorder, unspecified; F32.9 Major depressive disorder, single episode, unspecified; F12.90 Cannabis use, unspecified, uncomplicated; Z86.69 Personal history of other diseases of the nervous system and sense organs; Z87.442 Personal history of urinary calculi; Z90.49 Acquired absence of other specified parts of digestive tract; Z98.890 Other specified postprocedural states; Z56.0 Unemployment, unspecified; Z79.899 Other long term (current) drug therapy
CPT/HCPCS: 93005; 94640; 96361; 96372; 96374; 96375; 96376; 99283; J1200; J1630; J2060; J2405; J7030; 94760

== ENCOUNTER 2020-01-02 08:13 | Emergency (ER) | payer MEDICARE, MEDICAID ==
[~2020-01-02] VITALS: Ht 160 cm; Wt 69.9 kg
[~2020-01-02 08:13] MED LIST changes: -OMEP-297 PO; +OMEP20CA15 PO; -TRAZ-219 PO; +TRAZ-256 PO
[2020-01-02] MEDS ORDERED: normal saline 1000ML IV soln IVB ONE (08:25)
[2020-01-02] MEDS ORDERED: diphenhydrAMINE 50 mg/ml inj IV ONE ×2 (08:45→12:00)
[2020-01-02] MEDS ORDERED: proCHLORperazine 10 MG/2 ml inj IV ONE (08:45)
[2020-01-02] MEDS ORDERED: normal saline 1000ml 1,000 ML IV ONE (08:45)
[2020-01-02] MEDS ORDERED: ondansetron/PF 4mg/2ml inj IV ONE ×2 (08:45→10:15)
[2020-01-02 08:55] LABS: BASOPHILS % (AUTO) 0.2 % (0-1); EOSINOPHILS % (AUTO) 0 % (0-6); HEMATOCRIT 40.8 % (35.0-45.0); LYMPHOCYTES # (AUTO) 0.5 X10'3 (1.1-4.8); LYMPHOCYTES % (AUTO) 3.2 % (21-51); MEAN CORPUSCULAR HGB CONC 34.4 g/dL (33.0-36.5); MEAN CORPUSCULAR VOLUME 87.4 FL (78-98); MEAN PLATELET VOLUME 7.3 FL (7.4-10.4); MONOCYTES # (AUTO) 0.5 X10'3 (0-0.9); MONOCYTES % (AUTO) 3.4 % (2-12); NEUTROPHILS # (AUTO) 14.5 X10'3 (1.8-7.7); NEUTROPHILS % (AUTO) 93.2 % (42-75); PLATELET COUNT 221 X10'3 (140-440); RED BLOOD COUNT 4.67 X10'6 (4.20-5.60); RED CELL DISTRIBUTION WIDTH 12.9 % (11.5-14.5); WHITE BLOOD COUNT 15.5 X10'3 (4.5-11.0)
[2020-01-02 09:09] LABS: ALANINE AMINOTRANSFERASE 48 U/L (12-78); ALBUMIN 3.8 G/DL (3.4-5.0); ALBUMIN/GLOBULIN RATIO 1.4 (1.1-1.5); ALKALINE PHOSPHATASE 107 IU/L (46-116); ANION GAP 8 (8-16); ASPARTATE AMINO TRANSFERASE 51 U/L (10-37); BILIRUBIN,TOTAL 0.4 MG/DL (0.1-1.0); BLOOD UREA NITROGEN 13 MG/DL (7-18); BUN/CREATININE RATIO 13.5 (6.6-38.0); CALCIUM 8.8 MG/DL (8.5-10.1); CHLORIDE 99 MMOL/L (99-107); CREATININE 0.96 MG/DL (0.40-0.90); GLUCOSE 142 MG/DL (70-104); LIPASE 221 U/L (73-393); POTASSIUM 4.1 MMOL/L (3.5-5.1); SODIUM 134 MMOL/L (135-145); TOTAL PROTEIN 6.6 G/DL (6.4-8.2); eGFR 59 ML/MIN
--- NOTE | 2020-01-02 10:14 | NUR ---
URGED PT TO GIVE UA BUT PATIENT IS TO NAUSEASIATED AT THIS TIME
[2020-01-02] MEDS ORDERED: loperamide 2mg capsule PO ONE (11:00)
[2020-01-02 11:23] LABS: CLARITY,URINE CLEAR (Clear); COLOR,URINE YELLOW (Yellow); GLUCOSE, URINE NEGATIVE (Neg); KETONES,URINE NEGATIVE (Neg); LEUKOCYTE ESTERASE ,URINE NEGATIVE (Neg); NITRITES, URINE NEGATIVE (Neg); OCCULT BLOOD,URINE NEGATIVE (Neg); PROTEIN,URINE NEGATIVE (Neg); UROBILINOGEN,URINE 0.2 E.U/dL (0.2-1.0)
[2020-01-02 11:24] LABS: URINE HCG NEGATIVE (NEG)
[2020-01-02 11:40] LABS: UA COLLECTION TYPE CLN CATCH MIDSTREAM
[2020-01-02] MEDS ORDERED: haloperidol lactate 5mg/ml inj IM ONE (12:00)
[2020-01-02] MEDS ORDERED: LORazepam 2 mg/ml vial IV ONE (12:05)
[2020-01-02] MEDS ORDERED: ONDA4TAB6 PO (12:57)
[2020-01-02 13:42] VITALS: BP 168/61
== END 2020-01-02 13:26 | disposition home or self-care (01) ==
LOC: ER 08:13
DX: R11.15 Cyclical vomiting syndrome unrelated to migraine (principal); R19.7 Diarrhea, unspecified; E78.00 Pure hypercholesterolemia, unspecified; I10 Essential (primary) hypertension; J44.9 Chronic obstructive pulmonary disease, unspecified; G89.29 Other chronic pain; F41.9 Anxiety disorder, unspecified; F32.9 Major depressive disorder, single episode, unspecified; F12.90 Cannabis use, unspecified, uncomplicated; Z86.69 Personal history of other diseases of the nervous system and sense organs; Z90.49 Acquired absence of other specified parts of digestive tract; Z98.890 Other specified postprocedural states; Z56.0 Unemployment, unspecified; Z79.899 Other long term (current) drug therapy
CPT/HCPCS: 36415; 80053; 81003; 81025; 83690; 85025; 96372; 96374; 96375; 96376; 99285; J0780; J1200; J1630; J2060; J2405; J7030

== ENCOUNTER 2020-04-13 15:29 | Emergency (ER) | payer MEDICARE, MEDICAID ==
[~2020-04-13] VITALS: Ht 160 cm; Wt 68.2 kg
[2020-04-13 15:59] VITALS: BP 131/81
[2020-04-13] MEDS ORDERED: LIDOcaine 1% W/epiNEPHrine 1:200,000 10ml vial IJ ONE (17:30)
[2020-04-13] MEDS ORDERED: CEPH250T PO (17:37)
[2020-04-13] MEDS ORDERED: DOXY100C77 PO (17:37)
--- NOTE | 2020-04-14 20:40 | NUR ---
PT CALLED AND STATED SHE LOST HER ABX. SPOKE WITH GISSELL CORDOBA WHO IS OK WITH CALLING IN THE EXACT SAME SCRIPT. SHE IS NOT WILLING TO CHANGE THE ABX. SCRIPT HAS BEEN CALLED IN TO [facility] PER ORDER. PT NOTIFIED.
== END 2020-04-13 18:47 | disposition home or self-care (01) ==
LOC: ER 15:30
DX: L03.012 Cellulitis of left finger (principal); E78.00 Pure hypercholesterolemia, unspecified; I10 Essential (primary) hypertension; J44.9 Chronic obstructive pulmonary disease, unspecified; G89.29 Other chronic pain; F41.9 Anxiety disorder, unspecified; F32.9 Major depressive disorder, single episode, unspecified; F12.90 Cannabis use, unspecified, uncomplicated; Z86.69 Personal history of other diseases of the nervous system and sense organs; Z87.442 Personal history of urinary calculi; Z90.49 Acquired absence of other specified parts of digestive tract; Z98.890 Other specified postprocedural states; Z56.0 Unemployment, unspecified; Z79.2 Long term (current) use of antibiotics; Z79.899 Other long term (current) drug therapy
CPT/HCPCS: 10060; 26011; 99283

== ENCOUNTER 2020-06-10 14:19 | Emergency (ER) | payer MEDICARE, MEDICAID ==
[~2020-06-10] VITALS: Ht 165.1 cm; Wt 68.2 kg
[2020-06-10] MEDS ORDERED: ondansetron/PF 4mg/2ml inj IV ONE (15:55)
[2020-06-10] MEDS ORDERED: normal saline 1000ML IV soln IVB ONE (15:55)
[2020-06-10] MEDS ORDERED: haloperidol lactate 5mg/ml inj IM ONE (15:55)
[2020-06-10 16:12] LABS: BASOPHILS % (AUTO) 0.1 % (0-1); EOSINOPHILS % (AUTO) 0 % (0-6); HEMOGLOBIN 14.8 g/dl (12.0-16.0); LYMPHOCYTES # (AUTO) 0.5 X10'3 (1.1-4.8); LYMPHOCYTES % (AUTO) 3.8 % (21-51); MEAN CORPUSCULAR HEMOGLOBIN 29.9 PG (27.0-31.0); MEAN CORPUSCULAR HGB CONC 34.4 g/dL (33.0-36.5); MEAN CORPUSCULAR VOLUME 86.9 FL (78-98); MEAN PLATELET VOLUME 6.7 FL (7.4-10.4); MONOCYTES # (AUTO) 0.2 X10'3 (0-0.9); MONOCYTES % (AUTO) 1.7 % (2-12); NEUTROPHILS # (AUTO) 11.5 X10'3 (1.8-7.7); NEUTROPHILS % (AUTO) 94.4 % (42-75); PLATELET COUNT 333 X10'3 (140-440); RED BLOOD COUNT 4.94 X10'6 (4.20-5.60); RED CELL DISTRIBUTION WIDTH 13.9 % (11.5-14.5); WHITE BLOOD COUNT 12.2 X10'3 (4.5-11.0)
[2020-06-10 16:30] LABS: CHLORIDE 96 MMOL/L (99-107); GLUCOSE 148 MG/DL (70-104); POTASSIUM 4.3 MMOL/L (3.5-5.1); SODIUM 133 MMOL/L (135-145); TOTAL CARBON DIOXIDE 28.6 MMOL/L (24-32)
[2020-06-10 16:31] LABS: ALANINE AMINOTRANSFERASE 46 U/L (12-78); ALBUMIN 4.5 G/DL (3.4-5.0); ALBUMIN/GLOBULIN RATIO 1.4 (1.1-1.5); ALKALINE PHOSPHATASE 130 IU/L (46-116); ANION GAP 8 (8-16); ASPARTATE AMINO TRANSFERASE 29 U/L (10-37); BILIRUBIN,TOTAL 0.7 MG/DL (0.1-1.0); BLOOD UREA NITROGEN 10 MG/DL (7-18); BUN/CREATININE RATIO 8.9 (6.6-38.0); CALCIUM 9.9 MG/DL (8.5-10.1); CREATININE 1.12 MG/DL (0.40-0.90); LIPASE 84 U/L (73-393); TOTAL PROTEIN 7.8 G/DL (6.4-8.2); eGFR 49 ML/MIN
[2020-06-10] MEDS ORDERED: LORazepam 2 mg/ml vial IV ONE (16:45)
[2020-06-10 18:02] VITALS: BP 171/85
[2020-06-11] MEDS ORDERED: METO-292 PO (14:44)
[2020-06-11] MEDS ORDERED: KEP500T PO (14:44)
== END 2020-06-10 18:03 | disposition home or self-care (01) ==
LOC: ER 14:19
DX: R11.15 Cyclical vomiting syndrome unrelated to migraine (principal); R11.2 Nausea with vomiting, unspecified; F12.90 Cannabis use, unspecified, uncomplicated; E78.00 Pure hypercholesterolemia, unspecified; I10 Essential (primary) hypertension; J44.9 Chronic obstructive pulmonary disease, unspecified; G89.29 Other chronic pain; F41.9 Anxiety disorder, unspecified; F31.9 Bipolar disorder, unspecified; Z90.49 Acquired absence of other specified parts of digestive tract; Z98.890 Other specified postprocedural states; Z56.0 Unemployment, unspecified; Z79.899 Other long term (current) drug therapy
CPT/HCPCS: 36415; 80053; 83690; 85025; 96372; 96374; 96375; 99285; J1630; J2060; J2405; J7030

== ENCOUNTER 2020-06-11 12:18 | Emergency (ER) | payer MEDICARE, MEDICAID ==
[~2020-06-11] VITALS: Ht 165.1 cm; Wt 69.6 kg
[2020-06-11 13:38] LABS: BASOPHILS # (AUTO) 0.1 X10'3 (0-0.2); BASOPHILS % (AUTO) 0.4 % (0-1); EOSINOPHILS % (AUTO) 0 % (0-6); HEMATOCRIT 45.6 % (35.0-45.0); LYMPHOCYTES # (AUTO) 1.6 X10'3 (1.1-4.8); LYMPHOCYTES % (AUTO) 7.5 % (21-51); MEAN CORPUSCULAR HGB CONC 35.1 g/dL (33.0-36.5); MEAN CORPUSCULAR VOLUME 85.4 FL (78-98); MEAN PLATELET VOLUME 7.1 FL (7.4-10.4); MONOCYTES # (AUTO) 1.5 X10'3 (0-0.9); MONOCYTES % (AUTO) 7.5 % (2-12); NEUTROPHILS # (AUTO) 17.6 X10'3 (1.8-7.7); NEUTROPHILS % (AUTO) 84.6 % (42-75); PLATELET COUNT 380 X10'3 (140-440); RED BLOOD COUNT 5.33 X10'6 (4.20-5.60); RED CELL DISTRIBUTION WIDTH 13.3 % (11.5-14.5); WHITE BLOOD COUNT 20.7 X10'3 (4.5-11.0)
[2020-06-11 13:45] LABS: CLARITY,URINE CLEAR (Clear); COLOR,URINE YELLOW (Yellow); GLUCOSE, URINE NEGATIVE (Neg); KETONES,URINE 15 mg/dl (Neg); LEUKOCYTE ESTERASE ,URINE NEGATIVE (Neg); NITRITES, URINE NEGATIVE (Neg); OCCULT BLOOD,URINE LARGE (Neg); PH,URINE 6.5 (4.8-8.0); PROTEIN,URINE >=300 mg/dl (Neg)
[2020-06-11 13:48] LABS: ALANINE AMINOTRANSFERASE 48 U/L (12-78); ALBUMIN 4.1 G/DL (3.4-5.0); ALBUMIN/GLOBULIN RATIO 1.2 (1.1-1.5); ALKALINE PHOSPHATASE 138 IU/L (46-116); ANION GAP 15 (8-16); ASPARTATE AMINO TRANSFERASE 84 U/L (10-37); BILIRUBIN,TOTAL 1.5 MG/DL (0.1-1.0); BLOOD UREA NITROGEN 13 MG/DL (7-18); BUN/CREATININE RATIO 15.7 (6.6-38.0); CALCIUM 9.6 MG/DL (8.5-10.1); CHLORIDE 96 MMOL/L (99-107); CREATININE 0.83 MG/DL (0.40-0.90); GLUCOSE 137 MG/DL (70-104); POTASSIUM 3.1 MMOL/L (3.5-5.1); SODIUM 134 MMOL/L (135-145); TOTAL CARBON DIOXIDE 22.7 MMOL/L (24-32); TOTAL PROTEIN 7.4 G/DL (6.4-8.2); UA COLLECTION TYPE STRAIGHT CATH; eGFR 70 ML/MIN
[2020-06-11 13:51] LABS: BACTERIA,URINE NONE SEEN /HPF (Neg); MUCUS STRANDS MODERATE /LPF (Neg); SQUAMOUS EPITHELIAL CELL,UR FEW /LPF (FEW); WBC,URINE 0-4 /HPF (0-4)
[2020-06-11] MEDS ORDERED: KEP500T PO (14:44)
[2020-06-11] MEDS ORDERED: METO-292 PO (14:44)
--- NOTE | 2020-06-11 15:20 | NUR ---
SPOKE WITH MD REGARDING POTASSIUM LEVEL AND INFORMED HIM PATIENT DIDN'T FEEL WELL ENOUGH TO BE DISCHARGED.
--- NOTE | 2020-06-11 16:30 | NUR ---
PATIENT STATES SHE FEELS READY TO GO HOME NOW. WILL CALL SON.
[2020-06-11 16:44] VITALS: BP 138/102
[2020-06-11] MEDS ORDERED: levetiracetam inj 1,000 MG in normal saline 100ml IV soln 90 ML IV SCH (20:00)
== END 2020-06-11 16:45 | disposition home or self-care (01) ==
LOC: ER 12:19
DX: G40.909 Epilepsy, unspecified, not intractable, without status epilepticus (principal); E78.00 Pure hypercholesterolemia, unspecified; I10 Essential (primary) hypertension; J44.9 Chronic obstructive pulmonary disease, unspecified; G89.29 Other chronic pain; F31.9 Bipolar disorder, unspecified; F41.9 Anxiety disorder, unspecified; F12.90 Cannabis use, unspecified, uncomplicated; Z90.49 Acquired absence of other specified parts of digestive tract; Z91.14 Patient's other noncompliance with medication regimen; Z98.890 Other specified postprocedural states; Z56.0 Unemployment, unspecified; Z79.899 Other long term (current) drug therapy
CPT/HCPCS: 36415; 71045; 80053; 81001; 82948; 83605; 84145; 85025; 93005; 96374; 99285; J1953; 96360

== ENCOUNTER 2020-08-16 10:27 | Emergency (ER) | payer MEDICARE, MEDICAID ==
[~2020-08-16] VITALS: Ht 165.1 cm; Wt 72.7 kg
[~2020-08-16 10:27] MED LIST changes: +KEP500T PO; +METO-292 PO
[2020-08-16] MEDS ORDERED: normal saline 1000ML IV soln IVB ONE ×2 (11:10→12:25)
[2020-08-16] MEDS ORDERED: ondansetron/PF 4mg/2ml inj IV ONE (11:10)
[2020-08-16] MEDS ORDERED: haloperidol lactate 5mg/ml inj IM ONE ×2 (11:45→14:05)
[2020-08-16] MEDS ORDERED: proCHLORperazine 10 MG/2 ml inj IV ONE (11:45)
[2020-08-16 11:54] LABS: CLARITY,URINE SLIGHTLY CLOUDY (Clear); COLOR,URINE STRAW (Yellow); GLUCOSE, URINE 100 mg/dl (Neg); KETONES,URINE NEGATIVE (Neg); LEUKOCYTE ESTERASE ,URINE NEGATIVE (Neg); NITRITES, URINE NEGATIVE (Neg); OCCULT BLOOD,URINE MODERATE (Neg); PROTEIN,URINE 100 mg/dl (Neg); UROBILINOGEN,URINE 0.2 E.U/dL (0.2-1.0)
[2020-08-16 11:55] LABS: UA COLLECTION TYPE STRAIGHT CATH
[2020-08-16 11:57] LABS: BASOPHILS % (AUTO) 0.1 % (0-1); EOSINOPHILS % (AUTO) 0 % (0-6); HEMATOCRIT 41.2 % (35.0-45.0); HEMOGLOBIN 14.4 g/dl (12.0-16.0); LYMPHOCYTES # (AUTO) 0.3 X10'3 (1.1-4.8); LYMPHOCYTES % (AUTO) 3.2 % (21-51); MEAN CORPUSCULAR HEMOGLOBIN 29.2 PG (27.0-31.0); MEAN CORPUSCULAR HGB CONC 34.9 g/dL (33.0-36.5); MEAN CORPUSCULAR VOLUME 83.7 FL (78-98); MEAN PLATELET VOLUME 6.9 FL (7.4-10.4); MONOCYTES # (AUTO) 0.1 X10'3 (0-0.9); MONOCYTES % (AUTO) 1.2 % (2-12); NEUTROPHILS # (AUTO) 8.4 X10'3 (1.8-7.7); NEUTROPHILS % (AUTO) 95.5 % (42-75); PLATELET COUNT 289 X10'3 (140-440); RED BLOOD COUNT 4.92 X10'6 (4.20-5.60); RED CELL DISTRIBUTION WIDTH 13.1 % (11.5-14.5); WHITE BLOOD COUNT 8.8 X10'3 (4.5-11.0)
[2020-08-16 12:02] LABS: ALANINE AMINOTRANSFERASE 23 U/L (12-78); ALBUMIN 4.3 G/DL (3.4-5.0); ALBUMIN/GLOBULIN RATIO 1.4 (1.1-1.5); ALKALINE PHOSPHATASE 147 IU/L (46-116); ANION GAP 11 (8-16); ASPARTATE AMINO TRANSFERASE 17 U/L (10-37); BILIRUBIN,TOTAL 0.5 MG/DL (0.1-1.0); BLOOD UREA NITROGEN 9 MG/DL (7-18); BUN/CREATININE RATIO 12.9 (6.6-38.0); CALCIUM 9.4 MG/DL (8.5-10.1); CHLORIDE 83 MMOL/L (99-107); GLUCOSE 149 MG/DL (70-104); LIPASE 73 U/L (73-393); SODIUM 123 MMOL/L (135-145); TOTAL PROTEIN 7.4 G/DL (6.4-8.2); eGFR 85 ML/MIN
[2020-08-16 12:07] LABS: MUCUS STRANDS NONE SEEN /LPF (Neg); SQUAMOUS EPITHELIAL CELL,UR FEW /LPF (FEW); TRANSITIONAL EPI CELLS,URINE FEW /HPF
[2020-08-16 12:08] LABS: AMORPHOUS PHOSPHATES 2+; BACTERIA,URINE NONE SEEN /HPF (Neg); WBC,URINE NONE SEEN /HPF (0-4)
--- NOTE | 2020-08-16 12:38 | NUR ---
verified with lab potassium 3.0
[2020-08-16] MEDS ORDERED: morphine 4 MG/ML inj SYRINge IV ONE (12:45)
[2020-08-16] MEDS ORDERED: LORazepam 2 mg/ml vial IV ONE (12:45)
[2020-08-16] MEDS ORDERED: potassium Cl 10 mEq/100mL bag IV ONE (13:50)
[2020-08-16] MEDS ORDERED: magnesium 2GM in 50ml NS 50 ML IV ONE (14:05)
[2020-08-16] MEDS ORDERED: metoclopramide 5 mg/ml inj IV ONE (14:05)
[2020-08-16] MEDS ORDERED: diphenhydrAMINE 50 mg/ml inj IV ONE (15:55)
[2020-08-16] MEDS ORDERED: POTA-84 PO (16:26)
[2020-08-16] MEDS ORDERED: PROC25SU31 RC (16:27)
[2020-08-16 16:49] VITALS: BP 163/88
== END 2020-08-16 16:54 | disposition home or self-care (01) ==
LOC: ER 10:27
DX: E87.1 Hypo-osmolality and hyponatremia (principal); E87.6 Hypokalemia; R11.15 Cyclical vomiting syndrome unrelated to migraine; R50.9 Fever, unspecified; R19.7 Diarrhea, unspecified; E78.00 Pure hypercholesterolemia, unspecified; I10 Essential (primary) hypertension; J44.9 Chronic obstructive pulmonary disease, unspecified; G89.29 Other chronic pain; F31.9 Bipolar disorder, unspecified; F12.90 Cannabis use, unspecified, uncomplicated; Z86.69 Personal history of other diseases of the nervous system and sense organs; Z87.442 Personal history of urinary calculi; Z90.49 Acquired absence of other specified parts of digestive tract; Z98.890 Other specified postprocedural states; Z56.0 Unemployment, unspecified; Z79.899 Other long term (current) drug therapy
CPT/HCPCS: 36415; 80053; 81001; 83690; 85025; 96361; 96365; 96366; 96368; 96372; 96375; 99285; J0780; J1200; J1630; J2060; J2270; J2405; J2765; J3475; J3480; J7030

== ENCOUNTER 2021-01-16 09:34 | Emergency (ER) | payer MEDICARE, MEDICAID ==
[~2021-01-16] VITALS: Ht 160 cm; Wt 64.7 kg
[~2021-01-16 09:34] MED LIST changes: +LURA60TA PO; -LURA60TA2 PO; +POTA-84 PO
[2021-01-16 09:40] VITALS: BP 119/76
[2021-01-16] MEDS ORDERED: TETanus/Pertussis (Acell)/Diphther VAC/PF (Tdap-Adult) 0.5ml syringe IMVAC ONE (10:05)
== END 2021-01-16 10:35 | disposition home or self-care (01) ==
LOC: ER 09:34
DX: T23.022D Burn of unspecified degree of single left finger (nail) except thumb, subsequent encounter (principal); G40.909 Epilepsy, unspecified, not intractable, without status epilepticus; E78.00 Pure hypercholesterolemia, unspecified; I10 Essential (primary) hypertension; J44.9 Chronic obstructive pulmonary disease, unspecified; G89.29 Other chronic pain; F12.90 Cannabis use, unspecified, uncomplicated; Z87.442 Personal history of urinary calculi; Z90.49 Acquired absence of other specified parts of digestive tract; Z56.0 Unemployment, unspecified; Z79.899 Other long term (current) drug therapy; X08.8XXD Exposure to other specified smoke, fire and flames, subsequent encounter
CPT/HCPCS: 90471; 90715; 99283

== ENCOUNTER → 2021-04-07 | Emergency (ER) | payer MEDICARE, MEDICAID ==
[~2021-04-07] VITALS: Ht 160 cm; Wt 65.9 kg
[~2021-04-07] MED LIST changes: +CHOL500049 PO; +HYDR-3972 PO; +INDO-12 PO; +MIRT-88 PO; -MIRT30TA8 PO; +OXCA300T16 PO; +PROP10TA10 PO
[2021-04-07 16:47] VITALS: BP 148/82
== END | disposition home or self-care (01) ==
LOC: ER 16:35
DX: H53.8 Other visual disturbances (principal); H26.9 Unspecified cataract; E78.00 Pure hypercholesterolemia, unspecified; I10 Essential (primary) hypertension; J44.9 Chronic obstructive pulmonary disease, unspecified; G89.29 Other chronic pain; F41.9 Anxiety disorder, unspecified; F31.9 Bipolar disorder, unspecified; F12.90 Cannabis use, unspecified, uncomplicated; Z86.69 Personal history of other diseases of the nervous system and sense organs; Z87.442 Personal history of urinary calculi; Z90.49 Acquired absence of other specified parts of digestive tract; Z98.890 Other specified postprocedural states; Z56.0 Unemployment, unspecified; Z79.899 Other long term (current) drug therapy
CPT/HCPCS: 99281; 99283

== ENCOUNTER 2021-04-14 06:27 | Inpatient (IN) | payer MEDICARE, MEDICAID ==
[~2021-04-14] VITALS: Ht 160 cm; Wt 63.6 kg
[~2021-04-14 06:27] MED LIST changes: -CHOL500049 PO; -HYDR-3972 PO; -INDO-12 PO; -OXCA300T16 PO; -PROP10TA10 PO
[2021-04-14] MEDS ORDERED: normal saline 1000ml 1,000 ML IV ONE (06:55)
[2021-04-14] MEDS ORDERED: proCHLORperazine 10 MG/2 ml inj IV ONE (06:55)
[2021-04-14] MEDS ORDERED: iohexol 350MG/ML 100ml bottle IV ONE (07:05)
[2021-04-14 07:43] LABS: ALANINE AMINOTRANSFERASE 26 U/L (12-78); ALBUMIN 3.7 G/DL (3.4-5.0); ALBUMIN/GLOBULIN RATIO 1.4 (1.1-1.5); ALKALINE PHOSPHATASE 92 IU/L (46-116); ANION GAP 8 (8-16); ASPARTATE AMINO TRANSFERASE 18 U/L (10-37); BILIRUBIN,TOTAL 0.5 MG/DL (0.1-1.0); BLOOD UREA NITROGEN 8 MG/DL (7-18); BUN/CREATININE RATIO 10.3 (6.6-38.0); CALCIUM 8.7 MG/DL (8.5-10.1); CHLORIDE 86 MMOL/L (99-107); CREATININE 0.78 MG/DL (0.40-0.90); GLUCOSE 108 MG/DL (70-104); POTASSIUM 4.1 MMOL/L (3.5-5.1); SODIUM 121 MMOL/L (135-145); TOTAL CARBON DIOXIDE 27.3 MMOL/L (24-32); TOTAL PROTEIN 6.3 G/DL (6.4-8.2); eGFR 75 ML/MIN
[2021-04-14 07:52] LABS: TROPONIN I < 0.04 NG/ML (0.0-0.05)
[2021-04-14 07:59] LABS: BASOPHILS % (AUTO) 0.5 % (0-1); EOSINOPHILS % (AUTO) 0.1 % (0-6); HEMATOCRIT 33.7 % (35.0-45.0); HEMOGLOBIN 12.3 g/dl (12.0-16.0); LYMPHOCYTES # (AUTO) 0.8 X10'3 (1.1-4.8); LYMPHOCYTES % (AUTO) 18.1 % (21-51); MEAN CORPUSCULAR HEMOGLOBIN 31.1 PG (27.0-31.0); MEAN CORPUSCULAR VOLUME 85.1 FL (78-98); MONOCYTES # (AUTO) 0.2 X10'3 (0-0.9); MONOCYTES % (AUTO) 5.5 % (2-12); NEUTROPHILS # (AUTO) 3.2 X10'3 (1.8-7.7); NEUTROPHILS % (AUTO) 75.8 % (42-75); PLATELET COUNT 237 X10'3 (140-440); RED BLOOD COUNT 3.96 X10'6 (4.20-5.60); RED CELL DISTRIBUTION WIDTH 13.2 % (11.5-14.5); WHITE BLOOD COUNT 4.2 X10'3 (4.5-11.0)
[2021-04-14 08:07] LABS: ETHANOL < 0.010 GM/DL (0.0-0.010)
[2021-04-14 08:14] LABS: CLARITY,URINE CLEAR (Clear); COLOR,URINE YELLOW (Yellow); GLUCOSE, URINE NEGATIVE (Neg); KETONES,URINE NEGATIVE (Neg); LEUKOCYTE ESTERASE ,URINE NEGATIVE (Neg); NITRITES, URINE NEGATIVE (Neg); OCCULT BLOOD,URINE NEGATIVE (Neg); PROTEIN,URINE NEGATIVE (Neg); UROBILINOGEN,URINE 0.2 E.U/dL (0.2-1.0)
[2021-04-14 08:16] LABS: UA COLLECTION TYPE CLN CATCH MIDSTREAM
[2021-04-14 08:26] LABS: URINE AMPHETAMINE SCREEN NEGATIVE (Neg); URINE BARBITUATE SCREEN NEGATIVE (Neg); URINE BENZODIAZEPINES SCREEN NEGATIVE (Neg); URINE CANNABINOID SCREEN POSITIVE (Neg); URINE COCAINE SCREEN NEGATIVE (Neg); URINE METHADONE SCREEN NEGATIVE (Neg); URINE OPIATE SCREEN POSITIVE (Neg); URINE PHENCYCLIDINE SCREEN NEGATIVE (Neg)
[2021-04-14 08:41] LABS: MEAN CORPUSCULAR HGB CONC 36.5 g/dL (33.0-36.5)
[2021-04-14] MEDS: normal saline 1000ml 1,000 ML IV SCH ×2 (10:30→23:02)
[2021-04-14] MEDS ORDERED: magnesium hydroxide 30ml (MOM) UD suspension PO PRN (10:30)
[2021-04-14] MEDS ORDERED: acetaminophen 325mg tablet PO PRN (10:30)
--- NOTE | 2021-04-14 11:35 | NUR ---
relieving RN for break, pt is resting quietly on gurney, resp even and unlabored, skin p/w/d, waiting for bed assignment. Pt is aware of plan to admit for low sodium
--- NOTE | 2021-04-14 12:18 | NUR ---
Patient in room ED 14. I have received report from Savannah PIRES and had the opportunity to ask questions and assume patient care.
[2021-04-14 13:06] VITALS: BP 148/78
[2021-04-14] MEDS ORDERED: HYDR-3972 PO (13:28)
[2021-04-14] MEDS ORDERED: INDO-12 PO (13:28)
[2021-04-14] MEDS ORDERED: PROP10TA10 PO (13:28)
[2021-04-14] MEDS ORDERED: OXCA300T16 PO (13:28)
[2021-04-14] MEDS ORDERED: CHOL500049 PO (13:28)
--- NOTE | 2021-04-14 15:15 | NUR ---
At approximately 1500 pt stated she took one [place] that was in her sonia pants pocket. MD notified. Unlabled medications will be sent down to pharmacy.
--- NOTE | 2021-04-14 16:00 | NUR ---
notified x2 regarding med rec and pts norco request.
[2021-04-14] MEDS: ondansetron/PF 4mg/2ml inj IV PRN (17:09)
[2021-04-14 18:00] VITALS: BP 139/82
[2021-04-14] MEDS ORDERED: non-formulary drug (Ondansetron Hcl (Zofran) 1 TAB) PO PRN (18:05)
[2021-04-14] MEDS ORDERED: indomethacin 25mg capsule PO PRN (18:05)
[2021-04-14] MEDS ORDERED: HYDROcodone/acetaminophen 10/325mg tab PO PRN (18:05)
[2021-04-14] MEDS ORDERED: lurasidone 60mg tablet PO SCH (18:06)
--- NOTE | 2021-04-14 18:30 | NUR ---
Patient in room ORTHO 4011. I have received report from Cecily PIRES and had the opportunity to ask questions and assume patient care.
[2021-04-14] MEDS ORDERED: LORazepam 2 mg/ml vial IV ONE (18:40)
--- NOTE | 2021-04-14 19:01 | NUR ---
Received order and premedicated patient for MRI. Patient went down to MRI.
--- NOTE | 2021-04-14 19:22 | NUR ---
Patient way to anxious to preform MRI today. Will need more medication to premedicate patient and will attempt tomorrow.
[2021-04-14] MEDS: oxcarbazepine 150mg tablet PO SCH (19:46)
[2021-04-14] MEDS: gabapentin 300mg capsule PO SCH (19:46)
[2021-04-14] MEDS: heparin, porcine 5000 units/ml vial SQ SCH (19:47)
[2021-04-14] MEDS: HYDROcodone/acetaminophen 10/325mg tab PO PRN (19:48)
[2021-04-14] MEDS: traZODone 50mg tablet PO SCH (20:01)
[2021-04-14 22:00] VITALS: BP 133/84
[2021-04-15] MEDS: traZODone 50mg tablet PO SCH (04:00)
[2021-04-15] MEDS: ondansetron/PF 4mg/2ml inj IV PRN (04:41)
[2021-04-15 06:00] VITALS: BP 141/76
--- NOTE | 2021-04-15 06:39 | NUR ---
Patient in room ORTHO 4011. I have received report from nancie magana and had the opportunity to ask questions and assume patient care.
--- NOTE | 2021-04-15 06:39 | NUR ---
Problems reprioritized. Patient report given, questions answered & plan of care reviewed with Zaida PIRES.
[2021-04-15 06:50] LABS: BASOPHILS % (AUTO) 0.6 % (0-1); EOSINOPHILS % (AUTO) 0.1 % (0-6); HEMATOCRIT 32.6 % (35.0-45.0); HEMOGLOBIN 11.6 g/dl (12.0-16.0); LYMPHOCYTES # (AUTO) 0.9 X10'3 (1.1-4.8); LYMPHOCYTES % (AUTO) 24.1 % (21-51); MEAN CORPUSCULAR HEMOGLOBIN 30.4 PG (27.0-31.0); MEAN CORPUSCULAR HGB CONC 35.4 g/dL (33.0-36.5); MEAN CORPUSCULAR VOLUME 85.7 FL (78-98); MEAN PLATELET VOLUME 7.1 FL (7.4-10.4); MONOCYTES # (AUTO) 0.2 X10'3 (0-0.9); MONOCYTES % (AUTO) 6.2 % (2-12); NEUTROPHILS # (AUTO) 2.7 X10'3 (1.8-7.7); PLATELET COUNT 238 X10'3 (140-440); RED BLOOD COUNT 3.81 X10'6 (4.20-5.60); RED CELL DISTRIBUTION WIDTH 13.6 % (11.5-14.5); WHITE BLOOD COUNT 3.9 X10'3 (4.5-11.0)
[2021-04-15 06:59] LABS: ALBUMIN 3.4 G/DL (3.4-5.0); ANION GAP 7 (8-16); BLOOD UREA NITROGEN 5 MG/DL (7-18); CALCIUM 8.6 MG/DL (8.5-10.1); CHLORIDE 95 MMOL/L (99-107); CREATININE 0.71 MG/DL (0.40-0.90); GLUCOSE 90 MG/DL (70-104); POTASSIUM 3.8 MMOL/L (3.5-5.1); SODIUM 128 MMOL/L (135-145); TOTAL CARBON DIOXIDE 26.5 MMOL/L (24-32); eGFR 83 ML/MIN
[2021-04-15] MEDS ORDERED: pantoprazole 40mg Tablet.DR PO SCH (07:30)
[2021-04-15] MEDS: HYDROcodone/acetaminophen 10/325mg tab PO PRN ×2 (07:47→14:11)
[2021-04-15] MEDS: gabapentin 300mg capsule PO SCH (07:48)
[2021-04-15] MEDS: oxcarbazepine 150mg tablet PO SCH (07:49)
[2021-04-15] MEDS: heparin, porcine 5000 units/ml vial SQ SCH (07:50)
[2021-04-15] MEDS ORDERED: propranolol 10mg tablet PO SCH (08:00)
[2021-04-15] MEDS ORDERED: levetiracetam 250mg tablet PO SCH (08:00)
[2021-04-15] MEDS ORDERED: amLODIPine 5mg tablet PO SCH (08:00)
[2021-04-15] MEDS ORDERED: folic acid 1mg tablet PO SCH (08:00)
[2021-04-15] MEDS ORDERED: atorvastatin 20mg tablet PO SCH (08:00)
--- NOTE | 2021-04-15 08:05 | NUR ---
PAGED DR CORTEZ RE: PAGER ID: [id number] MESSAGE: CAIT ESTRADA. PT DIDNT TOLERATE MRI WITH .5 ATIVAN LAST NIGHT. CAN WE GET A HIGHER DOSE FOR TODAY? O/N RASHIDA 6301
[2021-04-15] MEDS ORDERED: LORazepam 2 mg/ml vial IV ONE (08:15)
[2021-04-15] MEDS ORDERED: PERFLUTREN PROTEIN-A MICROSPHR (Optison) 0.22 MG/ML 3ML VIAL IV ONE (08:30)
[2021-04-15] MEDS: mag hydrox/Alum hydrox/simeth 30ml oral suspension PO PRN ×2 (08:36→14:25)
[2021-04-15 10:00] VITALS: BP 116/71
--- NOTE | 2021-04-15 15:17 | NUR ---
PT DISCHARGED IN STABLE CONDITION. LEFT FACILITY IN PRIVATE VEHICLE WITH SON. IV DC CANULA INTACT. FOLLOW UP INSTRUCTIONS GIVEN, ALL QUESTIONS ANSWERED. ALL BELONGINGS IN HAND. Addendum: 04/15/21 at 1518 by Elizabeth Lynne RN Amended: Links added.
[2021-04-16] MEDS ORDERED: ergocalciferol (vit D2) capsule 50,000 UNITS (1,250mcg) CAPSULE PO SCH (08:00)
--- NOTE | 2021-04-18 10:41 | NUR ---
Case Management DC follow-up: Spoke w/pt via telephone. s/p:Metabolic encephalopathy; blurry/double vision, hyponatremia. Pt reports: "doing great" no vision issues at this time, "at least I will be able to walk around". Pt c/o not being able to taek medications on her own schedule. Did not like being "labeled" a drug addict, "discharge paper work is wrong, I am not giving this to my doctor". pt agitated most of the conversation, going from one topic to another, repeated same complaints. Able to redirect. Pt states she has taken these same meds for 30+ years and not understanding how that could be a contributing cause of recent changes eta ll, memory loss, blurry, double vision. Denies: acute/continuous CP, new onset irregular rhythm, emergent SOB, resp distress, orthopnea, dyspnea, N/V, hematemesis, weakness, vertigo, syncopal episodes, orthostatic hypotension, ROQUE, blurry vision(at time of this conversation), TIA/Stroke/FAST, dysphagia, bladder pain, dysuria, polyuria, hematuria, retention, abd tenderness/pain/distension, hematochezia, melena, unexplained bleeding/bruising, fever, chills. Verbalizes understanding of current/new Rx, and why prescribed. Continues/resumes Rx, with some modifications to actual orders. Denies ase r/t polypharmacy/contraindications/allergies. Verbalizes compliance w/aftercare. Verbalizes understanding of s/s that warrant 9-11/ER visit for further evaluation. Pt acknowledges need to schedule/confirm/keep all follow-up appts w/PCP Dr Borrero, [facility], [facility], psychiatrist and will continue to call and schedule. States neither facilities are answering. Pt states she was never told why she was getting all these tests and she did not want to be there and felt "forced" to stay. No further questions/concerns verbalized r/t recent hospital stay and/or DC status at this time.
== END 2021-04-15 14:50 | disposition home or self-care (01) | DRG 640 ==
LOC: ER 06:28 → ED HOLD 10:30 → EDBEDREQ 10:59 → ORTHO 4S 12:40
PROVIDERS: ADMIT Family Medicine; ATTEND Family Medicine
PROC: B3251ZZ Computerized Tomography (CT Scan) of Bilateral Common Carotid Arteries using Low Osmolar Contrast (ICD-10-PCS; principal; 2021-04-14)
PROC: B32G1ZZ Computerized Tomography (CT Scan) of Bilateral Vertebral Arteries using Low Osmolar Contrast (ICD-10-PCS; 2021-04-14)
PROC: B32R1ZZ Computerized Tomography (CT Scan) of Intracranial Arteries using Low Osmolar Contrast (ICD-10-PCS; 2021-04-14)
PROC: B3281ZZ Computerized Tomography (CT Scan) of Bilateral Internal Carotid Arteries using Low Osmolar Contrast (ICD-10-PCS; 2021-04-14)
DX: E87.1 Hypo-osmolality and hyponatremia (principal); G93.41 Metabolic encephalopathy; E78.00 Pure hypercholesterolemia, unspecified; E78.5 Hyperlipidemia, unspecified; F12.90 Cannabis use, unspecified, uncomplicated; F31.9 Bipolar disorder, unspecified; G40.909 Epilepsy, unspecified, not intractable, without status epilepticus; I10 Essential (primary) hypertension; J44.9 Chronic obstructive pulmonary disease, unspecified; F41.9 Anxiety disorder, unspecified; G89.29 Other chronic pain; M54.9 Dorsalgia, unspecified; Z87.442 Personal history of urinary calculi; Z90.49 Acquired absence of other specified parts of digestive tract; Z56.0 Unemployment, unspecified; Z79.899 Other long term (current) drug therapy
CPT/HCPCS: 36415; 70496; 70498; 80048; 80053; 80305; 80320; 81003; 84443; 84484; 85025; 85651; 87081; 96361; 96374; 99285; G0378; J0780; J2060; J2405; J7030; Q9967

== ENCOUNTER 2021-05-24 16:32 | Emergency (ER) | payer MEDICARE, MEDICAID ==
[~2021-05-24] VITALS: Ht 167.6 cm; Wt 50.4 kg
[~2021-05-24 16:32] MED LIST changes: -BUSP15TA8 PO; +CHOL500049 PO; -ERGO500041 PO; +HYDR-3972 PO; -KEP500T PO; -METO-292 PO; -MIRT-88 PO; -ONDA4TAB6 PO; -OXCA150T14 PO; +OXCA300T16 PO; -POTA-84 PO; -PRAZ1CAP5 PO; +PROP10TA10 PO
[2021-05-24 16:50] VITALS: BP 107/92
== END 2021-05-24 21:32 | disposition left against medical advice (07) ==
LOC: ER 16:32
DX: Z00.8 Encounter for other general examination (principal); Z53.21 Procedure and treatment not carried out due to patient leaving prior to being seen by health care provider

== ENCOUNTER 2021-05-30 14:48 | Emergency (ER) | payer MEDICARE, MEDICAID ==
[~2021-05-30] VITALS: Ht 170.2 cm; Wt 63.6 kg
[2021-05-30 15:36] LABS: BASOPHILS % (AUTO) 0.1 % (0-1); EOSINOPHILS % (AUTO) 0 % (0-6); HEMATOCRIT 34.5 % (35.0-45.0); LYMPHOCYTES # (AUTO) 0.7 X10'3 (1.1-4.8); LYMPHOCYTES % (AUTO) 9.3 % (21-51); MEAN CORPUSCULAR HGB CONC 34.7 g/dL (33.0-36.5); MEAN CORPUSCULAR VOLUME 86.5 FL (78-98); MEAN PLATELET VOLUME 7.1 FL (7.4-10.4); MONOCYTES # (AUTO) 0.3 X10'3 (0-0.9); MONOCYTES % (AUTO) 3.9 % (2-12); NEUTROPHILS % (AUTO) 86.7 % (42-75); PLATELET COUNT 276 X10'3 (140-440); RED BLOOD COUNT 3.99 X10'6 (4.20-5.60); RED CELL DISTRIBUTION WIDTH 13.2 % (11.5-14.5)
[2021-05-30 15:48] LABS: ALANINE AMINOTRANSFERASE 31 U/L (12-78); ALBUMIN 3.6 G/DL (3.4-5.0); ALBUMIN/GLOBULIN RATIO 1.4 (1.1-1.5); ALKALINE PHOSPHATASE 97 IU/L (46-116); ANION GAP 8 (8-16); ASPARTATE AMINO TRANSFERASE 21 U/L (10-37); BILIRUBIN,TOTAL 0.3 MG/DL (0.1-1.0); BLOOD UREA NITROGEN 15 MG/DL (7-18); BUN/CREATININE RATIO 16.1 (6.6-38.0); CALCIUM 8.4 MG/DL (8.5-10.1); CHLORIDE 100 MMOL/L (99-107); CREATININE 0.93 MG/DL (0.40-0.90); GLUCOSE 102 MG/DL (70-104); POTASSIUM 3.4 MMOL/L (3.5-5.1); SODIUM 137 MMOL/L (135-145); TOTAL CARBON DIOXIDE 29.1 MMOL/L (24-32); TOTAL PROTEIN 6.1 G/DL (6.4-8.2); eGFR 61 ML/MIN
[2021-05-30 15:57] LABS: ETHANOL < 0.010 GM/DL (0.0-0.010)
[2021-05-30 17:08] LABS: URINE AMPHETAMINE SCREEN NEGATIVE (Neg); URINE BARBITUATE SCREEN NEGATIVE (Neg); URINE BENZODIAZEPINES SCREEN NEGATIVE (Neg); URINE CANNABINOID SCREEN POSITIVE (Neg); URINE COCAINE SCREEN NEGATIVE (Neg); URINE METHADONE SCREEN NEGATIVE (Neg); URINE OPIATE SCREEN POSITIVE (Neg); URINE PHENCYCLIDINE SCREEN NEGATIVE (Neg)
[2021-05-30 17:18] LABS: CLARITY,URINE SLIGHTLY CLOUDY (Clear); COLOR,URINE YELLOW (Yellow); GLUCOSE, URINE NEGATIVE (Neg); KETONES,URINE NEGATIVE (Neg); LEUKOCYTE ESTERASE ,URINE NEGATIVE (Neg); NITRITES, URINE NEGATIVE (Neg); OCCULT BLOOD,URINE NEGATIVE (Neg); PH,URINE 5.5 (4.8-8.0); PROTEIN,URINE NEGATIVE (Neg)
--- NOTE | 2021-05-30 17:26 | NUR ---
pt is resting quietly on gurney, "I don't know why I am here", resp even and unlabored
[2021-05-30 17:31] LABS: UA COLLECTION TYPE STRAIGHT CATH
[2021-05-30 17:52] LABS: HYALINE CASTS 0-3 /LPF (NEGATIVE); MUCUS STRANDS MODERATE /LPF (Neg)
[2021-05-30 17:53] LABS: BACTERIA,URINE FEW /HPF (Neg); RBC,URINE 0-2 /HPF (0-2); SQUAMOUS EPITHELIAL CELL,UR FEW /LPF (FEW); WBC,URINE 0-4 /HPF (0-4)
[2021-05-30 18:34] VITALS: BP 153/96
== END 2021-05-30 18:54 | disposition home or self-care (01) ==
LOC: ER 14:49
DX: R40.20 Unspecified coma (principal); E78.00 Pure hypercholesterolemia, unspecified; I10 Essential (primary) hypertension; J44.9 Chronic obstructive pulmonary disease, unspecified; G89.29 Other chronic pain; F41.9 Anxiety disorder, unspecified; F31.9 Bipolar disorder, unspecified; F12.90 Cannabis use, unspecified, uncomplicated; Z86.69 Personal history of other diseases of the nervous system and sense organs; Z90.49 Acquired absence of other specified parts of digestive tract; Z87.442 Personal history of urinary calculi; Z98.890 Other specified postprocedural states; Z56.0 Unemployment, unspecified; Z79.899 Other long term (current) drug therapy
CPT/HCPCS: 36415; 70450; 71045; 80053; 80305; 80320; 81001; 82140; 85025; 93005; 99285

== ENCOUNTER 2021-06-05 20:38 | Emergency (ER) | payer MEDICARE, MEDICAID ==
[~2021-06-05] VITALS: Ht 160 cm; Wt 65.0 kg
[2021-06-05] MEDS ORDERED: PANT-47 PO (22:12)
[2021-06-05] MEDS ORDERED: IBUP-1985 PO (22:12)
[2021-06-05] MEDS ORDERED: SERT100T PO (22:12)
[2021-06-05] MEDS ORDERED: OXCA150T53 PO (22:12)
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
--- NOTE | 2021-06-05 22:49 | NUR ---
Patient placed on 1798
[2021-06-05 22:59] LABS: BASOPHILS % (AUTO) 0.2 % (0-1); EOSINOPHILS % (AUTO) 0 % (0-6); HEMATOCRIT 36.4 % (35.0-45.0); HEMOGLOBIN 12.4 g/dl (12.0-16.0); LYMPHOCYTES # (AUTO) 1.3 X10'3 (1.1-4.8); LYMPHOCYTES % (AUTO) 11.1 % (21-51); MEAN CORPUSCULAR HEMOGLOBIN 29.6 PG (27.0-31.0); MEAN CORPUSCULAR HGB CONC 34.1 g/dL (33.0-36.5); MEAN CORPUSCULAR VOLUME 86.9 FL (78-98); MEAN PLATELET VOLUME 7.4 FL (7.4-10.4); MONOCYTES # (AUTO) 0.7 X10'3 (0-0.9); MONOCYTES % (AUTO) 5.7 % (2-12); NEUTROPHILS # (AUTO) 9.6 X10'3 (1.8-7.7); PLATELET COUNT 237 X10'3 (140-440); RED BLOOD COUNT 4.19 X10'6 (4.20-5.60); RED CELL DISTRIBUTION WIDTH 13.6 % (11.5-14.5); WHITE BLOOD COUNT 11.6 X10'3 (4.5-11.0)
[2021-06-05 23:12] LABS: ALANINE AMINOTRANSFERASE 50 U/L (12-78); ALBUMIN/GLOBULIN RATIO 1.6 (1.1-1.5); ALKALINE PHOSPHATASE 104 IU/L (46-116); ANION GAP 9 (8-16); ASPARTATE AMINO TRANSFERASE 45 U/L (10-37); BILIRUBIN,TOTAL 0.4 MG/DL (0.1-1.0); BLOOD UREA NITROGEN 21 MG/DL (7-18); CALCIUM 9.1 MG/DL (8.5-10.1); CHLORIDE 103 MMOL/L (99-107); GLUCOSE 106 MG/DL (70-104); SODIUM 140 MMOL/L (135-145); TOTAL CARBON DIOXIDE 28.4 MMOL/L (24-32); TOTAL PROTEIN 6.5 G/DL (6.4-8.2); eGFR 56 ML/MIN
--- NOTE | 2021-06-05 23:15 | NUR ---
Patient ambulatory to and from bathroom with steady gait. Urine collected- patient stated "but I can't" although with simple step by step instructions she was able to urinate in hat placed in commode.
[2021-06-05 23:25] LABS: ETHANOL < 0.010 GM/DL (0.0-0.010)
[2021-06-05 23:54] LABS: CLARITY,URINE CLEAR (Clear); COLOR,URINE YELLOW (Yellow); GLUCOSE, URINE NEGATIVE (Neg); KETONES,URINE NEGATIVE (Neg); LEUKOCYTE ESTERASE ,URINE NEGATIVE (Neg); NITRITES, URINE NEGATIVE (Neg); OCCULT BLOOD,URINE NEGATIVE (Neg); PROTEIN,URINE TRACE mg/dl (Neg)
[2021-06-05 23:55] LABS: URINE AMPHETAMINE SCREEN NEGATIVE (Neg); URINE BARBITUATE SCREEN NEGATIVE (Neg); URINE BENZODIAZEPINES SCREEN NEGATIVE (Neg); URINE CANNABINOID SCREEN POSITIVE (Neg); URINE COCAINE SCREEN NEGATIVE (Neg); URINE METHADONE SCREEN NEGATIVE (Neg); URINE OPIATE SCREEN POSITIVE (Neg); URINE PHENCYCLIDINE SCREEN NEGATIVE (Neg)
[2021-06-05] MEDS ORDERED: olanzapine 10mg tablet PO SCH (23:55)
[2021-06-05] MEDS ORDERED: olanzapine 10mg tablet PO ONE (23:55)
[2021-06-05 23:58] LABS: UA COLLECTION TYPE CLN CATCH MIDSTREAM
[2021-06-06 00:04] LABS: BACTERIA,URINE NONE SEEN /HPF (Neg); MUCUS STRANDS MODERATE /LPF (Neg); RBC,URINE NONE SEEN /HPF (0-2); SQUAMOUS EPITHELIAL CELL,UR FEW /LPF (FEW); WBC,URINE 0-4 /HPF (0-4)
[2021-06-06] MEDS ORDERED: traZODone 50mg tablet PO ONE (00:35)
--- NOTE | 2021-06-06 00:40 | NUR ---
packet faxed to [facility]
--- NOTE | 2021-06-06 01:10 | NUR ---
MEDICATED PT AND TUCKED PT IN. PT ASKED IF HER SON WAS HERE, ASSURED PT HER SON WAS NOT HERE AND SUGGESTED SHE GET SOME REST.
--- NOTE | 2021-06-06 03:45 | NUR ---
pt appears to be sleeping
[2021-06-06] MEDS ORDERED: traZODone 50mg tablet PO SCH (04:00)
[2021-06-06 05:50] VITALS: BP 101/66
--- NOTE | 2021-06-06 05:51 | NUR ---
pt appears to be sleeping
--- NOTE | 2021-06-06 07:29 | NUR ---
pt asking to leave, informed her that she needs to be seen by mental health. when asked why she wants to "get out of here" stated she doesn't want to be in the meehan. Pt. moved to room 20, pt satisfied for 5 minutes then stating "this isn't what I want". "I want to go home now!" Pt told she is on a hold and can't leave until she is seen. pt continues to yell out.
[2021-06-06] MEDS ORDERED: oxcarbazepine 150mg tablet PO SCH (08:00)
[2021-06-06] MEDS ORDERED: levetiracetam 250mg tablet PO SCH (08:00)
[2021-06-06] MEDS ORDERED: atorvastatin 20mg tablet PO SCH (08:00)
[2021-06-06] MEDS ORDERED: amLODIPine 5mg tablet PO SCH (08:00)
[2021-06-06] MEDS ORDERED: pantoprazole 40mg Tablet.DR PO SCH (08:00)
[2021-06-06] MEDS ORDERED: ibuprofen 200mg tablet PO SCH (08:00)
[2021-06-06] MEDS ORDERED: sertraline 50mg tablet PO SCH (08:00)
[2021-06-06] MEDS ORDERED: lurasidone 60mg tablet PO SCH (17:00)
== END 2021-06-06 08:05 ==
LOC: ER 20:38
DX: R45.851 Suicidal ideations (principal); Z20.822 Contact with and (suspected) exposure to COVID-19; G40.909 Epilepsy, unspecified, not intractable, without status epilepticus; E78.00 Pure hypercholesterolemia, unspecified; I10 Essential (primary) hypertension; J44.9 Chronic obstructive pulmonary disease, unspecified; G89.29 Other chronic pain; Z87.442 Personal history of urinary calculi; Z56.0 Unemployment, unspecified; Z90.49 Acquired absence of other specified parts of digestive tract; Z79.899 Other long term (current) drug therapy
CPT/HCPCS: 36415; 80053; 80305; 80320; 81001; 84443; 85025; 87635; 99285; C9803

== ENCOUNTER 2021-06-07 13:20 | Emergency (ER) | payer MEDICARE, MEDICAID ==
[~2021-06-07] VITALS: Ht 157.5 cm; Wt 50.0 kg
[~2021-06-07 13:20] MED LIST changes: +IBUP-1985 PO; +OXCA150T53 PO; +PANT-47 PO; +SERT100T PO
--- NOTE | 2021-06-07 14:12 | NUR ---
PT ROBERT'Greer WATER BY MD BLANDON. A CUP OF WATER GIVEN.
[2021-06-07 15:05] LABS: BASOPHILS % (AUTO) 0.1 % (0-1); EOSINOPHILS % (AUTO) 0 % (0-6); HEMATOCRIT 37.4 % (35.0-45.0); HEMOGLOBIN 12.8 g/dl (12.0-16.0); LYMPHOCYTES # (AUTO) 1.2 X10'3 (1.1-4.8); LYMPHOCYTES % (AUTO) 12.8 % (21-51); MEAN CORPUSCULAR HGB CONC 34.3 g/dL (33.0-36.5); MEAN CORPUSCULAR VOLUME 87.3 FL (78-98); MEAN PLATELET VOLUME 7.4 FL (7.4-10.4); MONOCYTES # (AUTO) 0.5 X10'3 (0-0.9); MONOCYTES % (AUTO) 5.3 % (2-12); NEUTROPHILS # (AUTO) 7.4 X10'3 (1.8-7.7); NEUTROPHILS % (AUTO) 81.8 % (42-75); PLATELET COUNT 264 X10'3 (140-440); RED BLOOD COUNT 4.28 X10'6 (4.20-5.60); RED CELL DISTRIBUTION WIDTH 13.8 % (11.5-14.5); WHITE BLOOD COUNT 9.1 X10'3 (4.5-11.0)
[2021-06-07 15:22] LABS: ALANINE AMINOTRANSFERASE 55 U/L (12-78); ALBUMIN 3.9 G/DL (3.4-5.0); ALBUMIN/GLOBULIN RATIO 1.3 (1.1-1.5); ALKALINE PHOSPHATASE 91 IU/L (46-116); ANION GAP 10 (8-16); ASPARTATE AMINO TRANSFERASE 42 U/L (10-37); BILIRUBIN,TOTAL 0.5 MG/DL (0.1-1.0); BLOOD UREA NITROGEN 20 MG/DL (7-18); BUN/CREATININE RATIO 24.1 (6.6-38.0); CALCIUM 9.1 MG/DL (8.5-10.1); CHLORIDE 106 MMOL/L (99-107); CREATININE 0.83 MG/DL (0.40-0.90); ETHANOL < 0.010 GM/DL (0.0-0.010); GLUCOSE 69 MG/DL (70-104); POTASSIUM 3.6 MMOL/L (3.5-5.1); SODIUM 143 MMOL/L (135-145); TOTAL CARBON DIOXIDE 27.1 MMOL/L (24-32); TOTAL PROTEIN 6.9 G/DL (6.4-8.2); eGFR 70 ML/MIN
--- NOTE | 2021-06-07 15:51 | NUR ---
PT LOOKS ANXIOUS AT THIS TIME ,PT STATED THAT" I NEED HELP" AND THEN AGAIN SWITCH BACK TO I DON'T KNOW,PT WANT HIS SON ,CALLED ANTONIO EARLIER PT SON HE SAID HE WILL COME SEE THE PT AND PROVIDE US MORE INFORMATION.WILL WAIT FOR SON TO GET SOME URINE SPECIMEN.
--- NOTE | 2021-06-07 17:09 | NUR ---
WAITING FOR PT SON TO BE HERE TO COLLECT URINE SPECIMEN AND CHANGE PT TO GREEN SCRUBS.
[2021-06-07 18:22] LABS: CLARITY,URINE CLOUDY (Clear); COLOR,URINE YELLOW (Yellow); GLUCOSE, URINE NEGATIVE (Neg); KETONES,URINE 15 mg/dl (Neg); LEUKOCYTE ESTERASE ,URINE NEGATIVE (Neg); NITRITES, URINE NEGATIVE (Neg); OCCULT BLOOD,URINE NEGATIVE (Neg); PH,URINE 8.5 (4.8-8.0); PROTEIN,URINE TRACE mg/dl (Neg)
[2021-06-07 18:28] LABS: UA COLLECTION TYPE CLN CATCH MIDSTREAM
[2021-06-07 18:35] LABS: URINE AMPHETAMINE SCREEN NEGATIVE (Neg); URINE BARBITUATE SCREEN NEGATIVE (Neg); URINE BENZODIAZEPINES SCREEN NEGATIVE (Neg); URINE CANNABINOID SCREEN POSITIVE (Neg); URINE COCAINE SCREEN NEGATIVE (Neg); URINE METHADONE SCREEN NEGATIVE (Neg); URINE OPIATE SCREEN NEGATIVE (Neg); URINE PHENCYCLIDINE SCREEN NEGATIVE (Neg)
[2021-06-07 18:41] LABS: SQUAMOUS EPITHELIAL CELL,UR MODERATE /LPF (FEW)
[2021-06-07 18:43] LABS: AMORPHOUS PHOSPHATES 4+; BACTERIA,URINE 2+ /HPF (Neg); MUCUS STRANDS FEW /LPF (Neg); RBC,URINE 0-2 /HPF (0-2); WBC,URINE 0-4 /HPF (0-4)
--- NOTE | 2021-06-07 19:55 | NUR ---
Assumed care of pt at this time. Pt moved to horace 16. Family remains at bedside.
[2021-06-07] MEDS: LORazepam 1 MG tablet PO PRN (20:54)
--- NOTE | 2021-06-07 20:57 | NUR ---
Assumed care, patient resting in bed, vs wnl, in green scrubs.
--- NOTE | 2021-06-07 20:58 | NUR ---
patient states that she refuses to go to sleep as she is waiting for her son to come back.
--- NOTE | 2021-06-07 22:12 | NUR ---
PATIENT SON, ANRAV, WAS CALLED PATIENT IS GETTING VERY AGITATED. PER CHARGE NURSE IT IS OKAY FOR PATIENT SON TO STAY AND CALM PATIENT DOWN. PER ARNAV, HE IS ON HIS WAY.
[2021-06-08] MEDS: LORazepam 1 MG tablet PO PRN ×4 (02:00→05:48)
--- NOTE | 2021-06-08 05:50 | NUR ---
patient very upset that she could not get coffee at this time, patient given ativan, see mar. patient calmer.
[2021-06-08] MEDS ORDERED: LEVE500T PO (06:42)
[2021-06-08] MEDS ORDERED: OXCA150T14 PO ×2 (06:42→09:04)
[2021-06-08] MEDS ORDERED: AMLO10TA13 PO (06:42)
[2021-06-08] MEDS ORDERED: GABA-530 PO (06:42)
--- NOTE | 2021-06-08 07:05 | NUR ---
Pt is awake sitting up in bed. Pt requested a washcloth to clean her face. Pt was given hygiene supplies. Ambulated to bathroom, gait steady, even gait. Pt is calm at this time.
--- NOTE | 2021-06-08 09:04 | NUR ---
Pt sitting up in bed, son at bedside. No complaints, conversation appropriate.
[2021-06-08] MEDS ORDERED: FOLI0.4T14 PO (09:22)
[2021-06-08] MEDS ORDERED: PROP10TA10 PO (09:22)
[2021-06-08] MEDS ORDERED: propranolol 10mg tablet PO PRN (09:45)
[2021-06-08] MEDS ORDERED: GABA300C PO (09:48)
[2021-06-08] MEDS ORDERED: atorvastatin 20mg tablet PO SCH (09:50)
[2021-06-08] MEDS ORDERED: gabapentin 300mg capsule PO SCH (09:57)
[2021-06-08] MEDS ORDERED: amLODIPine 5mg tablet PO SCH (09:57)
[2021-06-08] MEDS ORDERED: oxcarbazepine 150mg tablet PO SCH (09:58)
[2021-06-08] MEDS ORDERED: pantoprazole 40mg Tablet.DR PO SCH (09:59)
[2021-06-08] MEDS ORDERED: levetiracetam 250mg tablet PO SCH (10:04)
[2021-06-08] MEDS ORDERED: traZODone 50mg tablet PO PRN (10:10)
[2021-06-08] MEDS ORDERED: folic acid 1mg tablet PO SCH ×2 (10:21→10:22)
[2021-06-08] MEDS ORDERED: sertraline 50mg tablet PO SCH (10:22)
--- NOTE | 2021-06-08 11:07 | NUR ---
[facility] was just at bedside. Pt is not being placed on a hold. Pt has been calm and cooperative.
[2021-06-08] MEDS ORDERED: ibuprofen 200mg tablet PO SCH (12:30)
[2021-06-08 13:02] VITALS: BP 114/90
--- NOTE | 2021-06-08 13:11 | NUR ---
DISCHARGE NOTE: Patient was discharged from ED-OF at 1305. Pt left with her son, sba underwriter escorted them out to lobby. Pt left with all personal belongings and home medications. Reviewed discharge instructions with son and pt, both verbalized understanding. Pt will follow up with her PCP. Pt was A&O x4 . Noted no disorganized or paranoid statements were made.
[2021-06-08] MEDS ORDERED: traZODone 50mg tablet PO SCH (21:00)
== END 2021-06-08 13:12 | disposition home or self-care (01) ==
LOC: ER 13:21
DX: R41.0 Disorientation, unspecified (principal); Z20.822 Contact with and (suspected) exposure to COVID-19; F79 Unspecified intellectual disabilities; F12.10 Cannabis abuse, uncomplicated; E78.00 Pure hypercholesterolemia, unspecified; J44.9 Chronic obstructive pulmonary disease, unspecified; G89.29 Other chronic pain; F41.9 Anxiety disorder, unspecified; F31.9 Bipolar disorder, unspecified; Z86.69 Personal history of other diseases of the nervous system and sense organs; Z87.442 Personal history of urinary calculi; Z90.49 Acquired absence of other specified parts of digestive tract; Z98.890 Other specified postprocedural states; Z56.0 Unemployment, unspecified; Z79.899 Other long term (current) drug therapy
CPT/HCPCS: 36415; 80053; 80305; 80320; 81001; 85025; 87635; 99284; C9803

== ENCOUNTER 2021-06-09 19:09 | Emergency (ER) | payer MEDICARE, MEDICAID ==
[~2021-06-09] VITALS: Ht 167.6 cm; Wt 53.6 kg
[~2021-06-09 19:09] MED LIST changes: -CHOL500049 PO; +FOLI0.4T14 PO; -FOLI1TAB16 PO; -GABA-532 PO; +GABA300C PO; -HYDR-3972 PO; -LEVE10002 PO; +LEVE500T PO; -OMEP20CA15 PO; -ONDA8TAB6 PO; +OXCA150T14 PO; -OXCA150T53 PO; -OXCA300T16 PO
[2021-06-09 19:25] VITALS: BP 102/70
[2021-06-09] MEDS ORDERED: LORazepam 1 MG tablet PO ONE (21:05)
== END 2021-06-09 22:11 | disposition home or self-care (01) ==
LOC: ER 19:10
DX: R41.82 Altered mental status, unspecified (principal); E78.00 Pure hypercholesterolemia, unspecified; I10 Essential (primary) hypertension; J44.9 Chronic obstructive pulmonary disease, unspecified; G89.29 Other chronic pain; F41.9 Anxiety disorder, unspecified; F31.9 Bipolar disorder, unspecified; F12.90 Cannabis use, unspecified, uncomplicated; Z86.69 Personal history of other diseases of the nervous system and sense organs; Z87.442 Personal history of urinary calculi; Z90.49 Acquired absence of other specified parts of digestive tract; Z98.890 Other specified postprocedural states; Z56.0 Unemployment, unspecified; Z79.899 Other long term (current) drug therapy
CPT/HCPCS: 99283

== ENCOUNTER 2021-06-12 20:32 | Emergency (ER) | payer MEDICARE, MEDICAID ==
--- NOTE | 2021-06-12 20:50 | NUR ---
PT BROUGHT IN BY EMS, ALERT AND ORIENTED X 4 GCS OF 15, DENIES ANY NEW MEDICAL COMPLAINT. PER EMS PT REQUESTED TO GO HOME IN TRANSPORT, DID NOT WANT TO BE SEEN. ON ARRIVAL DENIES TRIAGE. ATTEMPTED TO CALL HER SON X 2, PT HAS CELL PHONE ON HER PERSON UNABLE TO REACH HIM AND THE BATTERY IS ALMOST . CHARGE AWARE. PT SEATED IN LOBBY.
== END 2021-06-12 23:13 | disposition left against medical advice (07) ==
LOC: ER 20:34
DX: Z53.21 Procedure and treatment not carried out due to patient leaving prior to being seen by health care provider (principal)

== ENCOUNTER 2021-10-01 14:29 | Emergency (ER) | payer MEDICARE, MEDICAID ==
[~2021-10-01] VITALS: Ht 160 cm; Wt 50.0 kg
[2021-10-01 14:33] VITALS: BP 179/92
[2021-10-01] MEDS ORDERED: bacitracin ointment unit dose packet TP ONE (17:30)
[2021-10-01] MEDS ORDERED: bacitracin 15gm ointment TP ONE (17:40)
[2021-10-01 17:56] LABS: BASOPHILS % (AUTO) 0.8 % (0-1); EOSINOPHILS % (AUTO) 0.1 % (0-6); HEMATOCRIT 36.7 % (35.0-45.0); HEMOGLOBIN 12.7 g/dl (12.0-16.0); LYMPHOCYTES # (AUTO) 0.9 X10'3 (1.1-4.8); LYMPHOCYTES % (AUTO) 16.7 % (21-51); MEAN CORPUSCULAR HEMOGLOBIN 29.4 PG (27.0-31.0); MEAN CORPUSCULAR HGB CONC 34.6 g/dL (33.0-36.5); MEAN CORPUSCULAR VOLUME 84.8 FL (78-98); MONOCYTES # (AUTO) 0.3 X10'3 (0-0.9); MONOCYTES % (AUTO) 5.9 % (2-12); NEUTROPHILS # (AUTO) 4.2 X10'3 (1.8-7.7); NEUTROPHILS % (AUTO) 76.5 % (42-75); PLATELET COUNT 244 X10'3 (140-440); RED BLOOD COUNT 4.33 X10'6 (4.20-5.60); RED CELL DISTRIBUTION WIDTH 13.3 % (11.5-14.5); WHITE BLOOD COUNT 5.5 X10'3 (4.5-11.0)
[2021-10-01 17:59] LABS: ALANINE AMINOTRANSFERASE 33 U/L (12-78); ALBUMIN/GLOBULIN RATIO 1.1 (1.1-1.5); ALKALINE PHOSPHATASE 100 IU/L (46-116); ANION GAP 7 (8-16); ASPARTATE AMINO TRANSFERASE 19 U/L (10-37); BILIRUBIN,TOTAL 0.5 MG/DL (0.1-1.0); BLOOD UREA NITROGEN 18 MG/DL (7-18); CALCIUM 9.5 MG/DL (8.5-10.1); CHLORIDE 98 MMOL/L (99-107); CREATININE 0.72 MG/DL (0.40-0.90); GLUCOSE 99 MG/DL (70-104); POTASSIUM 3.9 MMOL/L (3.5-5.1); SODIUM 134 MMOL/L (135-145); TOTAL CARBON DIOXIDE 28.6 MMOL/L (24-32); TOTAL PROTEIN 7.5 G/DL (6.4-8.2); eGFR 82 ML/MIN
== END 2021-10-01 22:30 | disposition home or self-care (01) ==
LOC: ER 14:30
DX: L01.00 Impetigo, unspecified (principal); G30.9 Alzheimer's disease, unspecified; F02.80 Dementia in other diseases classified elsewhere, unspecified severity, without behavioral disturbance, psychotic disturbance, mood disturbance, and anxiety; E78.00 Pure hypercholesterolemia, unspecified; F12.90 Cannabis use, unspecified, uncomplicated; I10 Essential (primary) hypertension; J44.9 Chronic obstructive pulmonary disease, unspecified; G89.29 Other chronic pain; Z87.442 Personal history of urinary calculi; Z90.49 Acquired absence of other specified parts of digestive tract; Z56.0 Unemployment, unspecified; Z79.899 Other long term (current) drug therapy
CPT/HCPCS: 36415; 70450; 80053; 85025; 93005; 99285

== ENCOUNTER 2021-11-11 09:45 | Emergency (ER) | payer MEDICARE, MEDICAID ==
[~2021-11-11] VITALS: Ht 160 cm; Wt 65.0 kg
[2021-11-11 10:00] VITALS: BP 159/87
== END 2021-11-12 02:44 | disposition left against medical advice (07) ==
LOC: ER 09:45
DX: Z00.8 Encounter for other general examination (principal); Z53.21 Procedure and treatment not carried out due to patient leaving prior to being seen by health care provider

== ENCOUNTER 2021-11-20 11:34 | Emergency (ER) | payer MEDICARE, MEDICAID ==
[~2021-11-20] VITALS: Ht 167.6 cm; Wt 61.4 kg
[2021-11-20] MEDS ORDERED: normal saline 1000ML IV soln IV ONE (12:00)
[2021-11-20 12:39] LABS: BASOPHILS % (AUTO) 0.2 % (0-1); EOSINOPHILS % (AUTO) 0 % (0-6); HEMATOCRIT 37.8 % (35.0-45.0); HEMOGLOBIN 13.2 g/dl (12.0-16.0); LYMPHOCYTES # (AUTO) 0.9 X10'3 (1.1-4.8); LYMPHOCYTES % (AUTO) 10.3 % (21-51); MEAN CORPUSCULAR HEMOGLOBIN 29.6 PG (27.0-31.0); MEAN CORPUSCULAR HGB CONC 34.9 g/dL (33.0-36.5); MEAN CORPUSCULAR VOLUME 84.8 FL (78-98); MEAN PLATELET VOLUME 7.2 FL (7.4-10.4); MONOCYTES # (AUTO) 0.3 X10'3 (0-0.9); MONOCYTES % (AUTO) 3.7 % (2-12); NEUTROPHILS # (AUTO) 7.9 X10'3 (1.8-7.7); NEUTROPHILS % (AUTO) 85.8 % (42-75); PLATELET COUNT 319 X10'3 (140-440); RED BLOOD COUNT 4.46 X10'6 (4.20-5.60); RED CELL DISTRIBUTION WIDTH 14.1 % (11.5-14.5); WHITE BLOOD COUNT 9.2 X10'3 (4.5-11.0)
[2021-11-20 12:57] LABS: ALANINE AMINOTRANSFERASE 37 U/L (12-78); ALBUMIN 4.2 G/DL (3.4-5.0); ALBUMIN/GLOBULIN RATIO 1.5 (1.1-1.5); ALKALINE PHOSPHATASE 90 IU/L (46-116); ANION GAP 7 (8-16); ASPARTATE AMINO TRANSFERASE 28 U/L (10-37); BILIRUBIN,TOTAL 0.6 MG/DL (0.1-1.0); BLOOD UREA NITROGEN 12 MG/DL (7-18); BUN/CREATININE RATIO 17.1 (6.6-38.0); CALCIUM 9.8 MG/DL (8.5-10.1); CHLORIDE 95 MMOL/L (99-107); GLUCOSE 115 MG/DL (70-104); SODIUM 131 MMOL/L (135-145); TOTAL CARBON DIOXIDE 28.8 MMOL/L (24-32); eGFR 85 ML/MIN
[2021-11-20 13:07] LABS: ETHANOL < 0.010 GM/DL (0.0-0.010)
[2021-11-20 16:10] LABS: CLARITY,URINE CLEAR (Clear); COLOR,URINE YELLOW (Yellow); GLUCOSE, URINE NEGATIVE (Neg); KETONES,URINE NEGATIVE (Neg); LEUKOCYTE ESTERASE ,URINE NEGATIVE (Neg); NITRITES, URINE NEGATIVE (Neg); OCCULT BLOOD,URINE NEGATIVE (Neg); PROTEIN,URINE NEGATIVE (Neg); UROBILINOGEN,URINE 0.2 E.U/dL (0.2-1.0)
[2021-11-20 16:12] LABS: UA COLLECTION TYPE NON-SPECIFIED
[2021-11-20 16:15] LABS: URINE AMPHETAMINE SCREEN NEGATIVE (Neg); URINE BARBITUATE SCREEN NEGATIVE (Neg); URINE BENZODIAZEPINES SCREEN POSITIVE (Neg); URINE CANNABINOID SCREEN POSITIVE (Neg); URINE COCAINE SCREEN NEGATIVE (Neg); URINE METHADONE SCREEN NEGATIVE (Neg); URINE OPIATE SCREEN NEGATIVE (Neg); URINE PHENCYCLIDINE SCREEN NEGATIVE (Neg)
[2021-11-20] MEDS ORDERED: OLANZapine **IM** 10 mg inj. IM ONE (17:15)
[2021-11-20] MEDS ORDERED: LORazepam 2 mg/ml vial IM ONE (17:15)
--- NOTE | 2021-11-20 17:39 | NUR ---
Patient was transferred to from ER. In report by Yesenia Mcghee LAP RUNNER, I was told that she was repetative in questioning the usage of masks and would keep getting fixated on this cycle of questioning. Patient entered unit and began the same line of questioning. Patient does not blink often, refuses being touched, refuses oral meds, refuses to change into scrubs or give personal belongings for search. She states that we are all crazy and she isn't "doing this anymore." Patient is exhibiting signs of paranoia and needs to get her medicines in. I attempt to call [facility] who handles her psyche meds and am sent to [email or web address] when I attempt a med rec. Patient is not able to be a historian at this time. Son Noe would like to be called,but the patient is more pressing at this time.Will attempt to call later. GISSELL Moe is approached for IM medication. Zyprexa 10 mg IM and Ativan 2 mg IM are ordered. Security is called for reinforcement on the unit. Patient is asked several times using several avenues of therapeutic questioning, education, and ultimatums to attempt to avoid this. Patient is given IM meds at 1733 with assistance from EMT, Layo, PRANAY Rosen, myself, and security officers. Prior to administering, the patient is facedown and tells us she is pooping. We can audibly here her having a BM in her pants with no attempt to get up or be continent.
--- NOTE | 2021-11-20 18:01 | NUR ---
FAXED PACKET TO [facility].
--- NOTE | 2021-11-20 18:02 | NUR ---
Son, Noe, calls back with and receives updates along with family best friend whom we have permission to update as well, Harmony [facility] [phone]. Admitting is called to update Noe's phone number and add Harmony. Patient is now calm, alert, still moving around and asking us to update her son and have him come visit. She requests some Tylenol for her right, anterior thigh pain (IM's were in right glute). Will notify provider and request. PCP is Dr. Borrero and family friend, Charu states that the hand written med list provided in triage was provided by PCP. The meds with astrices are the ones they found on her and the ones w/o are KASANDRA.
--- NOTE | 2021-11-20 19:12 | NUR ---
PATIENT IS AWAKE, DISORGANIZED, SHE CAN BE DIRECTED AT THIS TIME. PATIENT GIVEN JUICE AND A SNACK. SHE IS SITTING IN BED EATING NOW.
[2021-11-20] MEDS ORDERED: OMEP20TA23 PO (19:45)
--- NOTE | 2021-11-20 21:37 | NUR ---
PATIENT ARE SWEEPING QUIETLY, NO DISTRESS.
[2021-11-20] MEDS: traZODone 50mg tablet PO SCH (21:45)
--- NOTE | 2021-11-20 23:22 | NUR ---
PATIENT IS SLEEPING QUIETLY. IN VIEW FROM NURSES STATION.
--- NOTE | 2021-11-21 00:39 | NUR ---
PATIENT IS SLEEPING QUIETLY ON HER LEFT SIDE. IN VIEW FROM NURSES STATION.
--- NOTE | 2021-11-21 02:44 | NUR ---
PATIENT IS SLEEPING QUIETLY ON HER LEFT SIDE. IN VIEW FROM NURSES STATION.
--- NOTE | 2021-11-21 03:48 | NUR ---
PATIENT IS AWAKE, DESCRIBES HALLUCINATIONS. COMPLAINS OF BILATERAL LEG PAIN. STATES A HISTORY OF TAKING HYDROCODONE. THIS LAW FIRM CONSULTANT VALIDATED PATIENTS HYDROCODONE HISTORY AND RELAYED TO ER MD.
[2021-11-21] MEDS ORDERED: HYDROcodone/acetaminophen 10/325mg tab PO ONE (03:50)
[2021-11-21] MEDS: traZODone 50mg tablet PO SCH (04:00)
[2021-11-21] MEDS: ibuprofen 200mg tablet PO SCH ×3 (04:09→16:00)
--- NOTE | 2021-11-21 06:07 | NUR ---
PATIENT SLEEPING QUIETLY.
--- NOTE | 2021-11-21 07:00 | NUR ---
Patient awake in her room, pt remains calm.
[2021-11-21] MEDS: atorvastatin 20mg tablet PO SCH (07:54)
[2021-11-21] MEDS: folic acid 1mg tablet PO SCH (07:54)
[2021-11-21] MEDS: oxcarbazepine 150mg tablet PO SCH (07:55)
[2021-11-21] MEDS: sertraline 50mg tablet PO SCH (07:55)
[2021-11-21] MEDS: pantoprazole 40mg Tablet.DR PO SCH (07:55)
[2021-11-21] MEDS: gabapentin 300mg capsule PO SCH (07:55)
[2021-11-21] MEDS: amLODIPine 5mg tablet PO SCH (07:55)
[2021-11-21] MEDS: levetiracetam 250mg tablet PO SCH (07:55)
[2021-11-21] MEDS ORDERED: pantoprazole 40mg Tablet.DR PO SCH (08:00)
--- NOTE | 2021-11-21 08:14 | NUR ---
One on on with assessment with patient. Pt is alert sitting up eating breakfast. Pt's agitation and paranoia have significantly decreased since her admit yesterday. Pt is pleasant and cooperative, however continues to present slighly disorganized. Pt is able to recall day, month, year and current president. Pt unable to recall how she got to hospital. "This has all been a big dream, but then why do I still have these? Pt points to two tattooes on her posterior wrists "I have had these since I was 12." Pt states she had a dream about her dog Jose "I love my dog, I still have my dog." Pt referred to "I still have the scars on my back." Pt has had back surgery, again referring to current events "being in a dream." Pt denies auditory hallucinations states "I only hear my son's, but not voices that aren't there." "I told him there were two god's, but he said there is only one." "I know my son is there." Pt's son lives in [place] and relationship appears to be intact. Pt will him after breakfast. Pt denies SI/HI. Pt reports history of Bipolar, depressive.
--- NOTE | 2021-11-21 08:30 | NUR ---
Pt came to nurses station requsting salt/pepper "I accidently put it in my coffee." Pt then looked at the clock "I get up at 0500 at home, why do I have my scars."
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
--- NOTE | 2021-11-21 09:06 | NUR ---
pt is standing at nurses station, refusing to get to her room. She says one thing and follows it with something completely different that doesn't really make sense. We are waiting for her son to call us back for a safety plan.
[2021-11-21] MEDS ORDERED: LORazepam 2 mg/ml vial IM ONE ×3 (09:20→14:15)
[2021-11-21] MEDS ORDERED: diphenhydrAMINE 50 mg/ml inj IM ONE ×2 (09:20→14:15)
[2021-11-21] MEDS ORDERED: OLANZapine **IM** 10 mg inj. IM ONE ×3 (09:20→10:15)
[2021-11-21] MEDS ORDERED: LORazepam 2 mg/ml vial ONE (09:25)
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
--- NOTE | 2021-11-21 09:59 | NUR ---
PT CONTINUES TO YELL AND NOT MAKE SENSE. SHE KEEPS THREATENING STAFF AND CALLING ALL STAFF CRAZY AND WE ARE ABUSING HER. WE MOVED HER BED FROM 24 TO 26 TO KEEP HER AWAY FROM THE MINOR PT AND HOPEFULLY CALM HER.
--- NOTE | 2021-11-21 10:15 | NUR ---
Unable to get current vitals. Pt combative, threatening. "FUCK YOU!" Will endorse to Bony Silva.
--- NOTE | 2021-11-21 10:24 | NUR ---
Pt continues to yell and make verbal threats. We are unable to do vitals and she is too combative still. She is awake, alert and in no distress at this time
--- NOTE | 2021-11-21 10:40 | NUR ---
Received order for additional emergency medication from Dr. Bony Grewal, as pt had continued to yell vulgar obscentities. Administered IM Ativan 1mg and Zyprexa 5mg.
--- NOTE | 2021-11-21 10:53 | NUR ---
pt is alert and not in distress, still talking about "nothing", making threats. Unable to do vitals at this time.
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
--- NOTE | 2021-11-21 12:03 | NUR ---
Spoke with Bony Grewal regarding PO medication for patient. Pt continues to indicate manic symptoms, tangential speech, disorganized speedh, repeating herself, not easily redirectable. Pt has calmed down, but is labile. Requesting additonal PO medication to prevent escalation with patient. I feel this is important for the safety of the patient, staff and other patients. Provider stated she will be over to when she can to reassess patient.
--- NOTE | 2021-11-21 12:11 | NUR ---
Pt keeps asking "my son is going to be here in half and hour? City Wellness Coordinator again explained pt's son does not want to speak with her at this time. Pt is to disorganized to have any insight into her mental health or current situation.
--- NOTE | 2021-11-21 12:53 | NUR ---
Pt continues to present with rapid, disorganized speech. Pt is fixated that this is November "I missed a whole month if this if November." Provider has not come to reassess patient. Spoke with Ethel charge nurse. Pt is labile talkative then quiet.
--- NOTE | 2021-11-21 12:58 | NUR ---
Rosalind pang in [facility] - 11/21/21 at 1259 by KEN PT
--- NOTE | 2021-11-21 12:59 | NUR ---
Pt is getting more veral in her demands and combative. She is making threats again.
[2021-11-21] MEDS ORDERED: LORazepam 1 MG tablet PO ONE (13:20)
--- NOTE | 2021-11-21 13:29 | NUR ---
Pt was evaluated by Dr. Bony Grewal at 1315. Received order for Ativan 1mg PO. Pt took medication without issue. Pt is sitting in bed #26 saying "call the police." Pt is fixated and doesn't understand why it is Februay. Pt was admitted on November 20 and today is November 21. "My calender at home said it was October 26." Pt is slowly escalating. Will continue to monitor. Addendum: 11/21/21 at 1342 by ALEX Pt continues to escalate
--- NOTE | 2021-11-21 14:05 | NUR ---
pt has not stopped talking and yelling since early this morning. She would like to talk to her son but he has told us she is not to call him. she is stuck on the date Oct 26 is when she was here not Nov 20. She can not understand why today is
[2021-11-21] MEDS ORDERED: haloperidol lactate 5mg/ml inj IM ONE (14:15)
--- NOTE | 2021-11-21 14:22 | NUR ---
Pt psych primary health care nurse Yohan REBOLLAR [phone] [facility] fax [phone] Pt is usally calm and very nice. This event is not like her usually. Adair REBOLLAR says she has been off her meds.
--- NOTE | 2021-11-21 14:33 | NUR ---
CAME OVER TO BREAK RN ASSISINED TO [facility] PT WAS SREAMING AND YELLING THAT WE ARE LIYING TO HER ABOUT WHAT DAY IT IS AND THE DATE ON HER ARM BAND IS THE CORRECT DAY PT ALREADY ANGELA TODAY WAS THROWING HER FOOD. STAFF WAS TALKING TO HER IN A CALM MANNER BUT SHE KEPT RASING HER VOICE SAY WE ARE LYING TO HER AND IF WE DO NOT STOP SHE IS GOING TO START GETTING VIOLENT. TALKED TO AND HE CAME TALKED TO PT AND MOOKIE TO ORDER MEDICATION TO GIVEN PT. WHEN ATTIMPING TO ADMISITER MEDS PT ATTIMPTED TO BIT SENIOR ANALYST PROGRAMMER BUT NO INJURY ACCRED TO SENIOR ANALYST PROGRAMMER AND MEDS WERE ADMISTERED WILL CONT TO MONITCOLLEEN
--- NOTE | 2021-11-21 15:35 | NUR ---
Pt is groggy r/t medication, but continues to intermittently sit up in bed or trying to get out of bed. Pt is fighting the sedation. Pt is able to be redirected when asked to stay in bed, she said "okay."
--- NOTE | 2021-11-21 16:10 | NUR ---
Pt sleeping comfortably, respirations even and unlabored. Will continue to monitor.
--- NOTE | 2021-11-21 17:36 | NUR ---
Pt continues to sleep comfortably, respirations even and unlabored. Pt's 1600 Motrin and 1700 Latuda will be held until she wakes up r/t psychosis. Pt is needing to sleep. Will endorse to NOC shift.
--- NOTE | 2021-11-21 18:30 | NUR ---
Assumed patient care. Patient sleeping quietly, no distress. Patient had required sedation on day shift.
--- NOTE | 2021-11-21 20:12 | NUR ---
Rosalind hameedsonia in [facility] - 11/22/21 at 0054 by ANDRIA Patient is still sleeping. She has self repositioned in bed.
--- NOTE | 2021-11-21 21:15 | NUR ---
PATIENT IS SLEEPING, LOW FOWLERS POSITION. SHE SELF REPOSITIONS IN BED.
--- NOTE | 2021-11-21 22:15 | NUR ---
PATIENT REMAINS SLEEPING. NO DISTRESS.
--- NOTE | 2021-11-21 23:40 | NUR ---
PATIENT REMAINS SLEEPING, NO DISTRESS. PATIENT HAS SELF REPOSITIONED IN BED
[2021-11-22] MEDS: ibuprofen 200mg tablet PO SCH ×4 (00:17→16:00)
--- NOTE | 2021-11-22 00:18 | NUR ---
PATIENT AWOKE, SHE WAS MOVED TO BED 24 PREVIOUS BED WAS NON FUNCTIONAL. PATIENT IS AWAKE AND DELUSIONAL AND PARANOID. THE PATIENT EATS SOME FOOD AND IS COMPLIANT WITH HER MEDICATIONS. THE PATIENT RAMBLES, SHE STATES THE STAFF IS CRAZY. PATIENT BELIEVES SHE HAS LOST A MONTH OF HER TIME, SHE BLAMES STAFF FOR THIS. CALMING MEASURES USED.
[2021-11-22] MEDS: traZODone 50mg tablet PO SCH ×3 (00:19→20:49)
[2021-11-22] MEDS: lurasidone 60mg tablet PO SCH ×2 (00:20→17:00)
[2021-11-22] MEDS: levetiracetam 250mg tablet PO SCH ×3 (00:20→20:51)
[2021-11-22] MEDS: gabapentin 300mg capsule PO SCH ×3 (00:20→20:51)
[2021-11-22] MEDS: HYDROcodone/acetaminophen 10/325mg tab PO PRN ×4 (00:20→20:50)
[2021-11-22] MEDS: oxcarbazepine 150mg tablet PO SCH ×3 (00:23→20:49)
[2021-11-22] MEDS ORDERED: diphenhydrAMINE 25mg capsule PO ONE (01:35)
[2021-11-22] MEDS ORDERED: haloperidol 5mg tablet PO ONE (01:35)
[2021-11-22] MEDS ORDERED: LORazepam 2 mg/ml vial IM ONE ×4 (02:00→17:05)
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
--- NOTE | 2021-11-22 03:15 | NUR ---
PATIENT SLEEPING IN A PRONE POSITION. W/D, GOOD COLOR. NO DISTRESS. PATIENT IS ON BED 24 FOR CLOSE OBSERVATION.
--- NOTE | 2021-11-22 04:20 | NUR ---
PATIENT HAS REPOSITIONED IN BED. SHE SLEEPS QUIETLY. NO DISTRESS.
--- NOTE | 2021-11-22 05:33 | NUR ---
PATIENT IS SLEEPING QUIETLY, NO DISTRESS.
--- NOTE | 2021-11-22 06:35 | NUR ---
Patient sleeping supine. No distress observed. Continue to monitor.
[2021-11-22] MEDS: folic acid 1mg tablet PO SCH (08:00)
[2021-11-22] MEDS: sertraline 50mg tablet PO SCH (08:00)
[2021-11-22] MEDS: OLANZapine 5mg rapidly disint. tablet PO SCH ×2 (08:00→20:50)
[2021-11-22] MEDS: amLODIPine 5mg tablet PO SCH (08:00)
[2021-11-22] MEDS: atorvastatin 20mg tablet PO SCH (08:00)
[2021-11-22] MEDS: pantoprazole 40mg Tablet.DR PO SCH (08:00)
--- NOTE | 2021-11-22 08:22 | NUR ---
Patient continues to sleep. No distress observed. Continue to monitor.
--- NOTE | 2021-11-22 10:15 | NUR ---
Patient continues to sleep. No distress observed. Continue to monitor.
--- NOTE | 2021-11-22 11:10 | NUR ---
RN attempted to help patient call her son. It sounds like the phone is blocked. RN called patient's son a couple of times and got the same message. Patient called and listened to the message and said "My son blocked my number! He always takes my calls!" Patient is calm but disheartened because she can't get a hold of her son. Continue to monitor.
--- NOTE | 2021-11-22 11:35 | NUR ---
Patient awake and wanting her medication. RN gave patient her medication but patient refused. Patient asking for her [place]. RN asked patient if she was in pain. Patient stated no. RN asked why she needed the [place]. "because you have it in your hand." RN "are you in any pain?" Patient, "no". then I'm not giving you [place]. "I'm in 10/10, I mean 9/10 pain." RN gave patient the [place] and she stated "This pill is Latuda!" RN showed her the packet and showed her the pill. Patient refused all the medication. Patient stated "This is a dream"
--- NOTE | 2021-11-22 11:58 | NUR ---
Pt escorted back to bed by security.
[2021-11-22] MEDS ORDERED: diphenhydrAMINE 50 mg/ml inj IM ONE ×3 (12:00→17:05)
[2021-11-22] MEDS ORDERED: haloperidol lactate 5mg/ml inj IM ONE ×3 (12:00→17:05)
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
--- NOTE | 2021-11-22 14:50 | NUR ---
Patient's restraints removed. Patient rolled over on her side and asked for milk. RN gave her a milk but patient was sleeping. RN left applesauce and milk with stephanie crackers at bedside. Continue to monitor.
--- NOTE | 2021-11-22 16:14 | NUR ---
Patient talking, talking, talking. States the staff is crazy and RN hung up on her son. Patient asked for coffee. RN advised that it is brewing now. Patient "you're a liar." Continue to monitor.
--- NOTE | 2021-11-22 18:02 | NUR ---
Restraints were put back on patient. Patient was swinging her fists at patient. Patient also received Chemical restraints.
--- NOTE | 2021-11-22 18:34 | NUR ---
Bhumika, daughter, . Patient lives in a rented house with Hud assistance. Son and girlfriend live with patient and they are afraid of her.
--- NOTE | 2021-11-22 18:45 | NUR ---
RESTRAINTS REMOVED. PT IS FOLLOWING VERBAL COMMANDS AND IS SLEEPY. SHORTLY AFTER RESTRAINTS REMOVED, PT FELL ASLEEP. VITALS WNL
--- NOTE | 2021-11-22 18:56 | NUR ---
VITAL SIGNS 106/66, 97% RA, 66 P, RR 16
--- NOTE | 2021-11-22 20:30 | NUR ---
pT WOKE UP, USED THE RESTROOOM. PT ATE SALAD AND CAKE
--- NOTE | 2021-11-22 21:03 | NUR ---
PT TOOK HS MEDICATIONS. PT IS CONFUSED AT TIME OF DAY, KEEPS INSISTING ITS MORNING
--- NOTE | 2021-11-22 21:37 | NUR ---
PT TRIED TO ELOPE, PT WAS WALKED BACK TO BED. PT IS CONFUSED AND THINKS SHE CAN WALK HOME
[2021-11-22] MEDS ORDERED: traZODone 50mg tablet PO ONE (22:01)
--- NOTE | 2021-11-22 23:00 | NUR ---
PT TRIED TO ELOPE AGAIN, PT WAS ABLE TO BE TALKED BACK INTO BED.
--- NOTE | 2021-11-23 00:01 | NUR ---
PT REQUESTED SLEEPING MED. GOT ORDER FOR TRAZODONE 50 MG. PT REFUSED TO TAKE IT AT BEDSIDE.
[2021-11-23] MEDS ORDERED: LORazepam 2 mg/ml vial IM ONE ×2 (00:15→10:25)
--- NOTE | 2021-11-23 02:32 | NUR ---
pt asleep on back, respirations even and unlabored
[2021-11-23] MEDS: traZODone 50mg tablet PO SCH ×2 (04:00→21:01)
--- NOTE | 2021-11-23 04:43 | NUR ---
pt is sitting up in bed brushing her hair. she asks what time it is 5 times.
--- NOTE | 2021-11-23 07:00 | NUR ---
Received pt. sleeping with HOB raised and light on at the beginning of the shift. RR are even and unlabored.
[2021-11-23] MEDS: ibuprofen 200mg tablet PO SCH ×3 (08:00→17:04)
[2021-11-23] MEDS: sertraline 50mg tablet PO SCH (08:23)
[2021-11-23] MEDS: gabapentin 300mg capsule PO SCH ×2 (08:23→21:01)
[2021-11-23] MEDS: atorvastatin 20mg tablet PO SCH (08:23)
[2021-11-23] MEDS: folic acid 1mg tablet PO SCH (08:23)
[2021-11-23] MEDS: OLANZapine 5mg rapidly disint. tablet PO SCH ×2 (08:24→21:01)
[2021-11-23] MEDS: amLODIPine 5mg tablet PO SCH (08:24)
[2021-11-23] MEDS: pantoprazole 40mg Tablet.DR PO SCH (08:24)
[2021-11-23] MEDS: oxcarbazepine 150mg tablet PO SCH ×2 (08:24→21:01)
[2021-11-23] MEDS: levetiracetam 250mg tablet PO SCH ×2 (08:25→21:00)
[2021-11-23] MEDS: HYDROcodone/acetaminophen 10/325mg tab PO PRN ×2 (08:48→21:00)
--- NOTE | 2021-11-23 09:00 | NUR ---
Pt. was cooperative with 1:1 assessment she is A&O X2 and continues to present with confusion. When questioned by this underwriter mortgage loan why she is here, pt. states, "Because they think I'm crazy." Pt. denies all MH s/s, however continues to present with paranoid delusions. She refuses her Motrin becase she believes it is ASA. Pt. requests PRN [place], administered with effectiveness.
--- NOTE | 2021-11-23 09:30 | NUR ---
Pt. exhibited increased anxiety and agitation. She began demanding multiple items over and over and making multiple complaints when these items were brought to her. Pt. was also violently pulling the curtain in her room back and forth when asked not to by staff, stating, "I"m just going to keep doing it until you do what I tell you to!" This was endorsed to Dr. Pinzon, and received orders for PRN Ativan, medication administered
[2021-11-23] MEDS: LORazepam 1 MG tablet PO PRN ×2 (09:45→21:01)
--- NOTE | 2021-11-23 09:45 | NUR ---
Pt. exhibiting increased anxiety AEB yelling aloud and continuously demanding different objects, very disruptive towards others. This was endorsed to Dr. Pinzon who ordered PO Ativan 1mg.
--- NOTE | 2021-11-23 09:55 | NUR ---
Pt's son called talking to the pt. at this time. He is also asking to talk to [facility] sr. social media & mobile manager, will give SW his number. Noe
[2021-11-23] MEDS ORDERED: haloperidol lactate 5mg/ml inj IM ONE (10:25)
[2021-11-23] MEDS ORDERED: diphenhydrAMINE 50 mg/ml inj IM ONE (10:25)
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
--- NOTE | 2021-11-23 11:26 | NUR ---
Pt. is able to follow safety directions and 4-point restraints removed at this time. Will continue to monitor. Pt. is sleeping in bed.
--- NOTE | 2021-11-23 13:23 | NUR ---
Pt. awake at this time eating lunch, she presents as calm and drowsy. Will continue to monitor.
--- NOTE | 2021-11-23 15:01 | NUR ---
Pt. laying in bed at this time staring ahead, she appears calm.
[2021-11-23] MEDS: lurasidone 60mg tablet PO SCH (17:04)
--- NOTE | 2021-11-23 17:09 | NUR ---
Pt. sleeping at this time, laying on her left side, rr even and ulabored.
--- NOTE | 2021-11-23 21:00 | NUR ---
PT states she is very tired. She brushes her hair and then drinks a carton of milk.
--- NOTE | 2021-11-23 21:04 | NUR ---
pt woke up asking for food, dinner tray was given to her which she is eating.
--- NOTE | 2021-11-23 21:05 | NUR ---
Pt took all HS medications without issue.
--- NOTE | 2021-11-23 23:00 | NUR ---
pt asleep on L side, respirations WNL
--- NOTE | 2021-11-24 00:30 | NUR ---
pt asleep on R side, RR 14
--- NOTE | 2021-11-24 02:00 | NUR ---
pt woke up and asked for warm blanket which was given to her. pt fell back asleep
--- NOTE | 2021-11-24 04:00 | NUR ---
pt woke up, used restroom and requested milk and a snack. milk and jello given to pt. scheduled motrin and trazodone offered to pt, pt initially agrees, but then refuses at bedside.
--- NOTE | 2021-11-24 04:29 | NUR ---
after going back and forth about taking motrin and trazodone, she took 1 motrin and 1 trazodone, then refused the other trazodone claiming it "was not trazodone." pt then decides she will take the second trazodone and does, then forgets she took it 2 minutes after.
[2021-11-24] MEDS: traZODone 50mg tablet PO SCH ×2 (04:41→21:00)
--- NOTE | 2021-11-24 05:00 | NUR ---
Security called for standby assist, pt would not leave the nursing station and keeps demanding medication she has already taken. pt was redirected back to bed.
--- NOTE | 2021-11-24 05:51 | NUR ---
Pt asleep on R side, rr 16
--- NOTE | 2021-11-24 06:41 | NUR ---
Patient up to nurse's station and back to room. Patient having a little difficulty following commands. Continue to monitor.
[2021-11-24] MEDS: gabapentin 300mg capsule PO SCH ×3 (07:23→23:29)
[2021-11-24] MEDS: LORazepam 1 MG tablet PO PRN (07:23)
[2021-11-24] MEDS: folic acid 1mg tablet PO SCH ×2 (07:23→08:00)
[2021-11-24] MEDS: pantoprazole 40mg Tablet.DR PO SCH ×2 (07:23→08:00)
[2021-11-24] MEDS: propranolol 10mg tablet PO PRN ×2 (07:23→23:28)
[2021-11-24] MEDS: sertraline 50mg tablet PO SCH ×2 (07:24→08:00)
[2021-11-24] MEDS: OLANZapine 5mg rapidly disint. tablet PO SCH ×3 (07:24→23:29)
[2021-11-24] MEDS: levetiracetam 250mg tablet PO SCH ×3 (07:24→23:28)
[2021-11-24] MEDS: oxcarbazepine 150mg tablet PO SCH ×3 (07:24→23:28)
[2021-11-24] MEDS: atorvastatin 20mg tablet PO SCH ×2 (07:24→08:00)
[2021-11-24] MEDS: ibuprofen 200mg tablet PO SCH ×5 (07:25→16:14)
[2021-11-24] MEDS ORDERED: haloperidol lactate 5mg/ml inj IM ONE (07:30)
[2021-11-24] MEDS ORDERED: LORazepam 2 mg/ml vial IM ONE (07:30)
[2021-11-24] MEDS ORDERED: diphenhydrAMINE 50 mg/ml inj IM ONE (07:30)
[2021-11-24] MEDS: amLODIPine 5mg tablet PO SCH ×2 (07:39→08:00)
[2021-11-24] MEDS: HYDROcodone/acetaminophen 10/325mg tab PO PRN ×2 (07:42→23:29)
--- NOTE | 2021-11-24 08:10 | NUR ---
Patient went behind the nurse's station and would not leave. Security was called and they assisted patient to her bed. Patient agitated and fighting. Patient placed on 4 point restraints. Patient sitting up in bed and RN gave her her oral medication. Then patient spit the medication out. RN collected the medication and then patient started asking for her medication again. RN gave her the meds she had spit out and patient immediately spit out the meds again. Patient continues to ask for her medication but RN does not believe patient will actually swallow them. Continue to monitor.
--- NOTE | 2021-11-24 08:40 | NUR ---
Patient was released from restraints. Patient is awake, alert and calm. Continue to monitor.
--- NOTE | 2021-11-24 09:25 | NUR ---
0905 RN in the Main ED getting med. Patient eloped out the old Security Forman door. 09 Patient found and placed back in bed in restraints. Order from doctor Carlos. Continue to monitor.
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
--- NOTE | 2021-11-24 12:05 | NUR ---
Patient appears calm. Patient's lunch is here and restraints were removed. Patient calm and eating. Continue to monitor.
--- NOTE | 2021-11-24 12:46 | NUR ---
Patient on the phone with her daughter Bhumika. No distress observed. Continue to monitor.
--- NOTE | 2021-11-24 13:55 | NUR ---
RN spoke with Dr Gonzalez about patient's medication and low Na+. Okay to stop the anti-depressant as patient is a known bipolar disorder who is elevated/hypomanic. Stopping medication to assist in mood. Continue to monitor.
--- NOTE | 2021-11-24 14:40 | NUR ---
Turkey Roll Maker attempting to draw blood for Na+ check. Patient refused with several staff attempting to convince her. RN will retime draw for tomorrow. Continue to monitor.
--- NOTE | 2021-11-24 15:17 | NUR ---
Patient speaking to her son. Noe [phone]. Patient calm and in no distress. Continue to monitor.
--- NOTE | 2021-11-24 15:18 | NUR ---
Patient has a 1:1 sitter. Vasquez. Continue to monitor.
--- NOTE | 2021-11-24 16:17 | NUR ---
RN offered patient her ibuprofen. Patient stated she would take it. RN handed patient her meds. She looked at them and refused. Continue to monitor.
--- NOTE | 2021-11-24 17:37 | NUR ---
RN changed patient's sheets. Patient is having small amounts of diarrhea and grabbing tissue and keeps wiping herself and placing the dirty tissue on her OTB table. RN cleaned table and attempted to clean patient but she refused. Patient's dinner on her bedside table. Continue to monitor.
--- NOTE | 2021-11-24 18:39 | NUR ---
Pt is up to use the restroom. She askes "why are you doing this to me?" she is encouraged to get back in bed which she does.
--- NOTE | 2021-11-24 19:26 | NUR ---
pt up to the bathroom, she states "i need to go to the bathroom" then she refuses to go in the bathroom, "this isnt the bathroom, im sleep walking." Pt reassured that this was the bathroom. She states it isnt, and walks away.
--- NOTE | 2021-11-24 21:32 | NUR ---
Pt yells "I need my medication!" RN brings pt her medication, she looks into the med cup and hands it back saying, "no im not taking it."
--- NOTE | 2021-11-24 22:00 | NUR ---
pt sits up and says, "I'll take my medication now". Pt takes all meds but refuses trazodone.
--- NOTE | 2021-11-24 23:00 | NUR ---
Pt yelles, "where is my dog?" she asks RN where her dog is atleast 30 times in 10 minutes. RN tells pt she is unsure of her dogs wherabouts, but reassures her everything is fine and that she spoke with her family earlier and her pets were okay. Pt becomes agitated and yells," your not helping me find my dog, come over here and do something about it." "you two faced-bitch." She then gets up from bed and walks over to the nurses station, grabd papers on the desk and throws them towards RN. Security is called. Pt told to get back in bed, with all 6 staff members standing by, she climbs back into bed and pulls the coversd up.
--- NOTE | 2021-11-24 23:50 | NUR ---
pt laying in bed, yelling out to RN, "we can do this all fucking night!" she then starts singing angelo songs. She eventuallyu falls asleep.
--- NOTE | 2021-11-25 02:00 | NUR ---
Pt asleep on L side, RR 14
--- NOTE | 2021-11-25 03:45 | NUR ---
Pt sleeping on L side, respirations even and unlabored
[2021-11-25] MEDS: traZODone 50mg tablet PO SCH ×2 (04:00→19:57)
--- NOTE | 2021-11-25 05:24 | NUR ---
Pt is still sleeping, has not stirred.
--- NOTE | 2021-11-25 07:10 | NUR ---
PT HAS BEEN AWAKE SINCE THE START OF THE SHIFT. SHE ASKED FOR COFFEE AND "SOMETHING SOFT TO EAT." PT GIVEN COFFEE AND YOGURT. PT OCCASIONALLY WILL COME UP TO THE NURSES STATION AND ASK STAFF, "ARE YOU OKAY?"
[2021-11-25] MEDS: oxcarbazepine 150mg tablet PO SCH ×2 (07:39→19:58)
[2021-11-25] MEDS: atorvastatin 20mg tablet PO SCH (07:39)
[2021-11-25] MEDS: HYDROcodone/acetaminophen 10/325mg tab PO PRN (07:40)
[2021-11-25] MEDS: gabapentin 300mg capsule PO SCH ×2 (08:15→19:57)
[2021-11-25] MEDS: amLODIPine 5mg tablet PO SCH (08:16)
[2021-11-25] MEDS: propranolol 10mg tablet PO PRN (08:16)
[2021-11-25] MEDS: pantoprazole 40mg Tablet.DR PO SCH (08:16)
[2021-11-25] MEDS: ibuprofen 200mg tablet PO SCH ×3 (08:17→16:18)
[2021-11-25] MEDS: folic acid 1mg tablet PO SCH (08:18)
[2021-11-25] MEDS: levetiracetam 250mg tablet PO SCH ×2 (08:18→19:57)
[2021-11-25] MEDS: OLANZapine 5mg rapidly disint. tablet PO SCH (08:18)
--- NOTE | 2021-11-25 09:17 | NUR ---
PT PLACED IN RESTRAINTS AFTER JUMPING UP ON THE NURSING STATIONS COUNTER THROWING A PITCHER OF WATER AT THE NURSES WHILE THREATENING TO KILL THE NURSES. PT HAS HAD PO ZYPREXA 5M, NORCO 10/325MG AND PROPRANOLOL 10 MG ALONG W/BP MEDS. PT IS NOW YELLING THE NURSES NAMES AND THREATENING BODILY HARM, "I'M GOING TO KILL YOU BITCH."
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
--- NOTE | 2021-11-25 09:39 | NUR ---
CIRCULATION CHECKED; WNL'S. PT CONTINUES TO THREATEN STAFF TO HURT AND "KILL" THEM. VS WNL'S. WATER REQUESTED AND GIVEN.
--- NOTE | 2021-11-25 10:00 | NUR ---
CIRCULATION RECHECKED. VS WNL'S. WATER OFFERED AND PT DRANK SOME. PT CONTINUES TO YELL AND MAKE VERBAL THREATS.
--- NOTE | 2021-11-25 10:14 | NUR ---
DISCUSSED WITH PT THE CRITERIA FOR REMOVAL OF THE RESTRAINTS. PT STATED, "YOUR GOING TO REGRET THIS." PT WILL NOT ACKNOWLEDGE CRITERIA TO GET OUT OF RESTRAINTS. PT CONINUES TO MAKE VERBAL THREATS. AGAIN PT GIVEN WATER AND DRANK. CIRCHULATION REMAINS GOOD. PT CAN MOVE ALL 4 EXTREMITES. PT THREATENS TO HIT STAFF WHEN CHECKING FOR CIRCULATION.
[2021-11-25 10:29] LABS: ALBUMIN 3.9 G/DL (3.4-5.0); ANION GAP 4 (8-16); BLOOD UREA NITROGEN 20 MG/DL (7-18); BUN/CREATININE RATIO 22.5 (6.6-38.0); CALCIUM 9.3 MG/DL (8.5-10.1); CHLORIDE 95 MMOL/L (99-107); CREATININE 0.89 MG/DL (0.40-0.90); GLUCOSE 105 MG/DL (70-104); POTASSIUM 5.4 MMOL/L (3.5-5.1); SODIUM 130 MMOL/L (135-145); TOTAL CARBON DIOXIDE 31.5 MMOL/L (24-32); eGFR 64 ML/MIN
--- NOTE | 2021-11-25 10:40 | NUR ---
PT CONTINUES TO YELL AT STAFF AND MAKE THREATS. CIRCULATION CHECKED. VS WNL'S. PT OFFERED A DRINK OF WATER AND DRANK SIPS OUT OF HER PITCHER OF WATER.
[2021-11-25] MEDS ORDERED: OLANZapine 5mg rapidly disint. tablet PO ONE (11:00)
--- NOTE | 2021-11-25 11:00 | NUR ---
PT GIVEN WATER, RECHECK CIRCULATION AND VS.
--- NOTE | 2021-11-25 11:10 | NUR ---
RECIEVED ORDER FROM MD CHUCK OF [facility] 15MG. PT AGREED TO TAKE THE MEDICINE. PT TOOK THE MEDICINE PO.
--- NOTE | 2021-11-25 11:45 | NUR ---
PT AGREED TO NOT HURT OR THREATEN BODILY HARM TO STAFF OR PATIENT'S. RESTRAINTS REMOVED. PT IS TEARFUL RESTING ON HER BACK ON HER BED.
--- NOTE | 2021-11-25 13:00 | NUR ---
PT CONTINUES TO BE QUIETLY TEARFUL. SHE SHARED AN INCIDENT SURROUNDING HER MOTHERS PASSING WITH THIS NURSE. PT IS RESTING ON HER BED.
--- NOTE | 2021-11-25 14:00 | NUR ---
PT IS SITTING ON HER BED READING A BOOK. SHE ATE 100% OF HER LUNCH.
--- NOTE | 2021-11-25 15:14 | NUR ---
PT HAS BEEN SITTING AT THE FOOT OF HER BED COLORING WITH CRAYONS AND MARKERS. SHE IS CALM AND COOPERATIVE.
--- NOTE | 2021-11-25 16:41 | NUR ---
PT CONTINUES TO SIT AT THE BEDSIDE COLORING. ENCOURAGED PT TO DRINK WATER. PT AGREES TO DRINK LESS COFFEE AND MORE WATER.
--- NOTE | 2021-11-25 16:42 | NUR ---
RECIEVED ORDERS FROM CHUCK MILES, TO INCREASE ZYPREXA ZYDIS TO 15MG QHS. SHE WILL CONTINUE THE 5MG QAM.
--- NOTE | 2021-11-25 17:52 | NUR ---
PT SLEEPING ON HER BACK. SHE HAS BEEN CALM AND COOPERATIVE WITH STAFF.
--- NOTE | 2021-11-25 19:07 | NUR ---
The patient awake and ate 100% of her evening meal. She is currently coloring at the bedside. One to one with the patient to assess for severity of mental health symptoms. The patient was unable to state what month it was or why she was here. She described her mood as "great" She denies ever having carlito and denies that she feels manic at this time and added, "I never get upset . I just love my fish. I live in [place]" She denies psychotic symptoms. She denies thoughts to harm herself or others.
[2021-11-25] MEDS: OLANZAPINE 5 MG TABLET PO SCH (19:58)
--- NOTE | 2021-11-25 21:03 | NUR ---
THe patient appears to be sleeping
--- NOTE | 2021-11-25 22:44 | NUR ---
The patient appears to be sleeping
--- NOTE | 2021-11-26 00:34 | NUR ---
The patient appears to be sleeping
--- NOTE | 2021-11-26 02:06 | NUR ---
The patient appears to be sleeping
--- NOTE | 2021-11-26 02:50 | NUR ---
The patient up to use the bathroom. Meds given for pain and sleep. The patient requested and received milk.
[2021-11-26] MEDS: traZODone 50mg tablet PO SCH ×2 (02:52→20:20)
[2021-11-26] MEDS: HYDROcodone/acetaminophen 10/325mg tab PO PRN ×2 (02:53→13:40)
[2021-11-26] MEDS: LORazepam 1 MG tablet PO PRN ×4 (02:53→22:08)
--- NOTE | 2021-11-26 04:27 | NUR ---
The patient is resting on her bed
[2021-11-26] MEDS: ibuprofen 200mg tablet PO SCH ×3 (05:56→16:03)
--- NOTE | 2021-11-26 06:15 | NUR ---
THe patient is tearful and emotional. She reported pain and motrin given.
--- NOTE | 2021-11-26 07:05 | NUR ---
Discussed CMP drawn yesterday with Dr. Gonzalez and order for a repeat CMP tomorrow
[2021-11-26] MEDS: folic acid 1mg tablet PO SCH (07:26)
[2021-11-26] MEDS: gabapentin 300mg capsule PO SCH ×2 (07:26→19:00)
[2021-11-26] MEDS: pantoprazole 40mg Tablet.DR PO SCH (07:26)
[2021-11-26] MEDS: levetiracetam 250mg tablet PO SCH ×2 (07:26→19:00)
[2021-11-26] MEDS: atorvastatin 20mg tablet PO SCH (07:27)
[2021-11-26] MEDS: amLODIPine 5mg tablet PO SCH (07:27)
[2021-11-26] MEDS: oxcarbazepine 150mg tablet PO SCH ×2 (07:27→19:00)
--- NOTE | 2021-11-26 07:40 | NUR ---
THe patient is repeatedly calling to staff at the station. She presents as confused and disorganized
[2021-11-26] MEDS ORDERED: OLANZAPINE 5 MG TABLET PO SCH (08:00)
--- NOTE | 2021-11-26 08:35 | NUR ---
The patient is irritable and confused.
--- NOTE | 2021-11-26 09:07 | NUR ---
The patient is repeatedly up at the nursing station and fixated on the time.
--- NOTE | 2021-11-26 09:17 | NUR ---
THe patient continues disruptive and frequently up at the station making odd statements
[2021-11-26] MEDS ORDERED: OLANZapine **IM** 10 mg inj. IM ONE (10:00)
--- NOTE | 2021-11-26 10:15 | NUR ---
The patient increasingly disorganized and agitated about coffee. She tried to take coffee away from an upset peer and refused redirection. The patient was cooperative with receiving IM medications.
--- NOTE | 2021-11-26 11:27 | NUR ---
The patient is much calmer and less disorganized. She is not making any paranoid statements. She is less intrussive.
--- NOTE | 2021-11-26 13:22 | NUR ---
The patient is theatening to throw her water at staff. She was redirected from the patient.
--- NOTE | 2021-11-26 13:25 | NUR ---
The patient is screaming and demanding staff make calls for her which they already have done. She is agitating peers
--- NOTE | 2021-11-26 13:48 | NUR ---
the patient was given ativan. She is yelling and agitating other patients.
[2021-11-26] MEDS ORDERED: quetiapine 100mg tablet PO ONE (14:05)
[2021-11-26] MEDS ORDERED: diphenhydrAMINE 50 mg/ml inj ONE (14:42)
[2021-11-26] MEDS ORDERED: haloperidol lactate 5mg/ml inj ONE (14:42)
--- NOTE | 2021-11-26 15:02 | NUR ---
The patient is screaming at the top of her lungs swearing and cursing staff.
--- NOTE | 2021-11-26 15:44 | NUR ---
The patient is currently calm and working on artwork at the bedside. Contacted grades 1 thru 6 home teacher at [facility] to request psychiatry PA review patient's case and make recommendations.
--- NOTE | 2021-11-26 18:21 | NUR ---
Medications and mental health symptoms discussed with Dr. Romero and Elijah BORRERO and orders received.
--- NOTE | 2021-11-26 19:04 | NUR ---
THE PATIENT IS PRESENTING MANIC AND DELUSIONAL. PATIENT IS MOSTLY COOPERATIVE, SHE EXHIBITS SOME ABILITY TO BE REDIRECTED. PATIENT IS WEARING GREEN SCRUBS. SHE ATE HER DINNER. PATIENT IS ABLE TO TOILET HERSELF.
[2021-11-26] MEDS: OLANZAPINE 5 MG TABLET PO SCH (20:20)
--- NOTE | 2021-11-26 20:52 | NUR ---
PATIENT IS SLEEPING QUIETLY. NO DISTRESS. SHE SELF REPOSITIONS IN BED.
--- NOTE | 2021-11-26 22:11 | NUR ---
PATIENT AWOKE, MILD ANXIETY. ATIVAN GIVEN PO. PATIENT REDIRECTED TO BED.
--- NOTE | 2021-11-26 22:54 | NUR ---
PATIENT IS AWAKE, AMBULATORY, INTRUSIVE, DELUSIONAL, THERE IS PROBLEMS REDIRECTING THIS PATIENT NOW.
--- NOTE | 2021-11-26 23:23 | NUR ---
PATIENT CONTINUES TO EXHIBIT INTRUSIVE BEHAVIOR, SHE IS LABILE
[2021-11-26] MEDS ORDERED: LORazepam 2 mg/ml vial IM ONE (23:40)
[2021-11-26] MEDS ORDERED: haloperidol lactate 5mg/ml inj IM ONE (23:40)
[2021-11-26] MEDS ORDERED: diphenhydrAMINE 50 mg/ml inj IM ONE (23:40)
[2021-11-27] MEDS: ibuprofen 200mg tablet PO SCH ×3 (00:18→16:17)
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
--- NOTE | 2021-11-27 00:29 | NUR ---
PATIENT REMAINS AWAKE AND INTRUSIVE FOLLOWING SEDATION. SHE YELLS AT STAFF. CONTINUING ATTEMPTS AT DISTRACTION AND REDIRECTION ARE BEING MADE BY THIS CT SCAN TECH.
--- NOTE | 2021-11-27 00:52 | NUR ---
PATIENT IS QUIETING SOME, LESS LABILE. PATIENT IS IN DIRECT VIEW FROM NURSES STATION.
--- NOTE | 2021-11-27 01:39 | NUR ---
PATIENT SITS IN BED QUIETLY, SHE EATS A SANDWICH.
--- NOTE | 2021-11-27 02:01 | NUR ---
PATIENT SLEEPS INTERMITTENTLY. SHE HAS AWOKEN AND AMBULATED SLOWLY TO THE BATHROOM AND BACK TO BED.
[2021-11-27] MEDS: traZODone 50mg tablet PO SCH (04:00)
--- NOTE | 2021-11-27 05:17 | NUR ---
PATIENT IS ONCE AGAIN SLEEPING. NO DISTRESS.
--- NOTE | 2021-11-27 07:26 | NUR ---
Patient is awake, asking multiple questions. Patient up to the bathroom.
[2021-11-27] MEDS: oxcarbazepine 150mg tablet PO SCH (07:59)
[2021-11-27] MEDS: gabapentin 300mg capsule PO SCH (07:59)
[2021-11-27] MEDS: atorvastatin 20mg tablet PO SCH (07:59)
[2021-11-27] MEDS ORDERED: olanzapine 10mg tablet PO SCH (08:00)
[2021-11-27] MEDS: levetiracetam 250mg tablet PO SCH (08:00)
[2021-11-27] MEDS: folic acid 1mg tablet PO SCH (08:01)
[2021-11-27] MEDS: amLODIPine 5mg tablet PO SCH (08:01)
[2021-11-27] MEDS: pantoprazole 40mg Tablet.DR PO SCH (08:01)
[2021-11-27] MEDS: HYDROcodone/acetaminophen 10/325mg tab PO PRN (08:09)
--- NOTE | 2021-11-27 08:14 | NUR ---
Patient took her medications and is now eating her breakfast. Patient is tearful about her son because she cannot get a hold of him on the telephone, and assumes that he is .
--- NOTE | 2021-11-27 08:53 | NUR ---
Patient started to escalate because she cannot get in contact with her son. Patient's son called back and talked to pt. Pt's son is to call Jonathon from [facility].
--- NOTE | 2021-11-27 10:48 | NUR ---
Patient has been coloring quietly and now is resting in her bed.
[2021-11-27] MEDS ORDERED: acetaminophen 325mg tablet PO ONE (12:55)
--- NOTE | 2021-11-27 13:09 | NUR ---
Lab here to draw blood.
--- NOTE | 2021-11-27 13:11 | NUR ---
Notified MARC Nguyen of family conflict. Patient's son does not want patient to come home.
--- NOTE | 2021-11-27 13:17 | NUR ---
Patient has been cooperative and had good behavior today. Up to the restroom.
--- NOTE | 2021-11-27 13:21 | NUR ---
Patient's son and daughter in law (Noe and Kelly) called RN on telephone. They stated that they had been told that Nerissa from [facility] will be placing her computer terminal operator. Talked to [facility] and this is an untrue statement. Family states that she no longer lives there, they will not pick her up, and that they have moved. Wendy MARC stated that she will call [facility]PS if necessary and report family.
[2021-11-27 13:34] LABS: ALBUMIN 3.4 G/DL (3.4-5.0); ANION GAP 5 (8-16); BLOOD UREA NITROGEN 22 MG/DL (7-18); BUN/CREATININE RATIO 36.1 (6.6-38.0); CALCIUM 8.5 MG/DL (8.5-10.1); CHLORIDE 93 MMOL/L (99-107); CREATININE 0.61 MG/DL (0.40-0.90); GLUCOSE 100 MG/DL (70-104); POTASSIUM 4.4 MMOL/L (3.5-5.1); SODIUM 126 MMOL/L (135-145); TOTAL CARBON DIOXIDE 28.1 MMOL/L (24-32); eGFR > 90 ML/MIN
[2021-11-27] MEDS ORDERED: normal saline 1000ML IV soln IVB ONE ×2 (13:55)
--- NOTE | 2021-11-27 14:03 | NUR ---
20 G I.V. inserted into left hand.
--- NOTE | 2021-11-27 15:19 | NUR ---
Patient up to the restroom. I.V. infusing NaCl.
[2021-11-27] MEDS: LORazepam 1 MG tablet PO PRN (16:17)
[2021-11-27 16:31] LABS: ANION GAP 7 (8-16); BLOOD UREA NITROGEN 20 MG/DL (7-18); BUN/CREATININE RATIO 35.7 (6.6-38.0); CALCIUM 7.4 MG/DL (8.5-10.1); CHLORIDE 100 MMOL/L (99-107); CREATININE 0.56 MG/DL (0.40-0.90); GLUCOSE 81 MG/DL (70-104); SODIUM 129 MMOL/L (135-145); TOTAL CARBON DIOXIDE 21.8 MMOL/L (24-32); eGFR > 90 ML/MIN
--- NOTE | 2021-11-27 17:12 | NUR ---
Patient received 1500 ml of NaCl. Labs redrawn and reviewed with GISSELL Gutierrez. Patient is going to take a taxi to her home. Patient states that she can get in the back door that is unlocked. Taxi called. Patient is dressed appropriately. Patient is discharged in stable condition. Patient has been educated on taking her medications when she gets home and to not fight with family.
[2021-11-27 17:21] VITALS: BP 135/94
--- NOTE | 2021-11-27 17:39 | NUR ---
Pt wheeled out of ER overflow department and taken to front lobby where we met [employer]. local [place] truck driver initially reluctant to receive passenger as his dispatch relayed a message that "He is not supposed to take her to her residence as the home is locked up." Information clarified as destination was to patient's house which she has keys to. local [place] truck driver agreed to receive patient and take her home [address] [place] [address].
== END 2021-11-27 17:25 | disposition home or self-care (01) ==
LOC: ER 11:35
DX: F29 Unspecified psychosis not due to a substance or known physiological condition (principal); Z20.822 Contact with and (suspected) exposure to COVID-19; F03.91 Unspecified dementia, unspecified severity, with behavioral disturbance; G40.909 Epilepsy, unspecified, not intractable, without status epilepticus; E78.00 Pure hypercholesterolemia, unspecified; I10 Essential (primary) hypertension; F12.90 Cannabis use, unspecified, uncomplicated; J44.9 Chronic obstructive pulmonary disease, unspecified; G89.29 Other chronic pain; Z87.442 Personal history of urinary calculi; Z79.899 Other long term (current) drug therapy; Z90.49 Acquired absence of other specified parts of digestive tract; Z56.0 Unemployment, unspecified
CPT/HCPCS: 36415; 71045; 80048; 80053; 80305; 80320; 81003; 84443; 85025; 87635; 93005; 96372; 99285; C9803; J1200; J1630; J2060; J3490; J7030

== ENCOUNTER 2021-11-29 09:50 | Emergency (ER) | payer MEDICARE, MEDICAID ==
[~2021-11-29] VITALS: Ht 160 cm; Wt 67.3 kg
[~2021-11-29 09:50] MED LIST changes: +OMEP20TA23 PO
[2021-11-29 10:22] VITALS: BP 124/74
[2021-11-29] MEDS ORDERED: OLANZapine **IM** 10 mg inj. IM ONE (12:20)
== END 2021-11-29 12:49 | disposition home or self-care (01) ==
LOC: ER 09:51
DX: F31.9 Bipolar disorder, unspecified (principal); F20.9 Schizophrenia, unspecified; E78.00 Pure hypercholesterolemia, unspecified; I10 Essential (primary) hypertension; J44.9 Chronic obstructive pulmonary disease, unspecified; G89.29 Other chronic pain; F41.9 Anxiety disorder, unspecified; F12.90 Cannabis use, unspecified, uncomplicated; Z86.69 Personal history of other diseases of the nervous system and sense organs; Z87.442 Personal history of urinary calculi; Z90.49 Acquired absence of other specified parts of digestive tract; Z98.890 Other specified postprocedural states; Z56.0 Unemployment, unspecified; Z79.899 Other long term (current) drug therapy
CPT/HCPCS: 96372; 99283; J3490

== ENCOUNTER 2022-02-25 00:18 | Emergency (ER) | payer OTHER, MEDICAID ==
[~2022-02-25] VITALS: Ht 162.6 cm; Wt 59.1 kg
[2022-02-25] MEDS ORDERED: OLANZapine 5mg rapidly disint. tablet PO ONE (01:05)
[2022-02-25] MEDS ORDERED: LORazepam 1 MG tablet PO ONE (01:05)
[2022-02-25 01:43] LABS: BASOPHILS % (AUTO) 0.1 % (0-1); EOSINOPHILS % (AUTO) 0 % (0-6); HEMATOCRIT 37.7 % (35.0-45.0); HEMOGLOBIN 12.9 g/dl (12.0-16.0); MEAN CORPUSCULAR HEMOGLOBIN 29.1 PG (27.0-31.0); MEAN CORPUSCULAR HGB CONC 34.3 g/dL (33.0-36.5); MEAN CORPUSCULAR VOLUME 84.7 FL (78-98); MEAN PLATELET VOLUME 7.5 FL (7.4-10.4); MONOCYTES # (AUTO) 0.5 X10'3 (0-0.9); MONOCYTES % (AUTO) 5.8 % (2-12); NEUTROPHILS # (AUTO) 7.2 X10'3 (1.8-7.7); NEUTROPHILS % (AUTO) 82.1 % (42-75); PLATELET COUNT 260 X10'3 (140-440); RED BLOOD COUNT 4.45 X10'6 (4.20-5.60); RED CELL DISTRIBUTION WIDTH 13.7 % (11.5-14.5); WHITE BLOOD COUNT 8.7 X10'3 (4.5-11.0)
[2022-02-25 01:52] LABS: ALANINE AMINOTRANSFERASE 25 U/L (12-78); ALBUMIN 4.3 G/DL (3.4-5.0); ALBUMIN/GLOBULIN RATIO 1.3 (1.1-1.5); ALKALINE PHOSPHATASE 102 IU/L (46-116); ANION GAP 13 (8-16); ASPARTATE AMINO TRANSFERASE 23 U/L (10-37); BILIRUBIN,TOTAL 0.3 MG/DL (0.1-1.0); BLOOD UREA NITROGEN 19 MG/DL (7-18); BUN/CREATININE RATIO 20.2 (6.6-38.0); CALCIUM 9.5 MG/DL (8.5-10.1); CHLORIDE 101 MMOL/L (99-107); CREATININE 0.94 MG/DL (0.40-0.90); GLUCOSE 116 MG/DL (70-104); POTASSIUM 3.6 MMOL/L (3.5-5.1); SODIUM 140 MMOL/L (135-145); TOTAL CARBON DIOXIDE 26.4 MMOL/L (24-32); TOTAL PROTEIN 7.6 G/DL (6.4-8.2); eGFR 60 ML/MIN
[2022-02-25 01:54] LABS: ETHANOL < 0.010 GM/DL (0.0-0.010)
[2022-02-25 05:14] LABS: URINE AMPHETAMINE SCREEN NEGATIVE (Neg); URINE BARBITUATE SCREEN NEGATIVE (Neg); URINE BENZODIAZEPINES SCREEN NEGATIVE (Neg); URINE CANNABINOID SCREEN POSITIVE (Neg); URINE COCAINE SCREEN NEGATIVE (Neg); URINE METHADONE SCREEN NEGATIVE (Neg); URINE OPIATE SCREEN NEGATIVE (Neg); URINE PHENCYCLIDINE SCREEN NEGATIVE (Neg)
--- NOTE | 2022-02-25 05:19 | NUR ---
pt resting with eyes closed. chest even rise and fall bilaterally.
[2022-02-25] MEDS ORDERED: LORazepam 1 MG tablet PO STA (09:51)
[2022-02-25] MEDS ORDERED: OLANZapine 2.5MG tablet PO STA (09:51)
--- NOTE | 2022-02-25 09:54 | NUR ---
The patient moved to bed 21 from the main ER. She is agitated, hyperverbal, speech rapid and with elevated volume. The patient stated "there is nothing wrong with me. I just need to get my son out of shelter" She is agreeing to take medications for anxiety.
--- NOTE | 2022-02-25 10:16 | NUR ---
Patient agitated and yelling insults to staff at the nursing station. Demanding to be seen immediately by [facility]. She repeatedly that "I'm as normal as you are!"
[2022-02-25] MEDS ORDERED: HYDR-3965 PO (10:34)
[2022-02-25] MEDS ORDERED: TRAZ-256 PO (10:34)
[2022-02-25] MEDS ORDERED: QUET-1 PO (10:34)
[2022-02-25] MEDS ORDERED: LORazepam 2 mg/ml vial ONE (10:40)
[2022-02-25] MEDS ORDERED: haloperidol lactate 5mg/ml inj ONE (10:40)
[2022-02-25] MEDS ORDERED: diphenhydrAMINE 50 mg/ml inj ONE (10:41)
--- NOTE | 2022-02-25 10:48 | NUR ---
The patient was increasingly agitated and screaming from her bed and agitated several other patients. She is refusing redirection.
--- NOTE | 2022-02-25 10:50 | NUR ---
Discussed patient behaviors on the unit and orders received
--- NOTE | 2022-02-25 11:22 | NUR ---
The patient continues to yelling out from her bed but volume is lower and she is also being more polite. She is no way sedated.
--- NOTE | 2022-02-25 11:53 | NUR ---
The patient appears to be sleeping
--- NOTE | 2022-02-25 12:26 | NUR ---
The patient is resting on her bed and eating her dinner.
--- NOTE | 2022-02-25 13:31 | NUR ---
The patient is resting on her bed
--- NOTE | 2022-02-25 14:28 | NUR ---
The patient appears to be sleeping
--- NOTE | 2022-02-25 15:12 | NUR ---
The patient's son came to check on his mother. He has been very worried because the last he knew he had taken her to [facility] ER and assumed that she was there and when she was he was concerned that she was wondering the streets on Mother's day. He stated that he believes she is not taking medications as prescribed and her mental health symptoms have been the worse he's ever seen in the past 8 months. He is questioning that she might be getting some dementia as well as the bipolar.
--- NOTE | 2022-02-25 15:15 | NUR ---
Patient's son, Noe,
[2022-02-25] MEDS: lurasidone 60mg tablet PO SCH ×2 (16:57→17:03)
--- NOTE | 2022-02-25 17:11 | NUR ---
The patient appears to be asleep on her bed.
--- NOTE | 2022-02-25 18:52 | NUR ---
Received report on patient that is telling anybody that will listen that she is innocent and does not belong here.
--- NOTE | 2022-02-25 19:24 | NUR ---
Patient relaxing quietly on her bed.
[2022-02-25] MEDS: oxcarbazepine 150mg tablet PO SCH (20:49)
[2022-02-25] MEDS ORDERED: quetiapine 100mg tablet PO SCH (21:00)
[2022-02-25] MEDS ORDERED: traZODone 50mg tablet PO SCH (21:00)
--- NOTE | 2022-02-25 22:04 | NUR ---
Patient is lying on her bed doing everything she can to not go to sleep.
--- NOTE | 2022-02-26 00:46 | NUR ---
The patient appears to be asleep on her bed.
--- NOTE | 2022-02-26 02:38 | NUR ---
The patient appears to be sleeping
--- NOTE | 2022-02-26 04:12 | NUR ---
Patient asleep supine in her bed. No distress observed. Continue to monitor.
--- NOTE | 2022-02-26 05:50 | NUR ---
Patient up to the nurses station demanding coffee and bothering other patients.
--- NOTE | 2022-02-26 06:39 | NUR ---
Pt standing at nurses station saying "I need to get out of here." "My grandson is home, he is sitting on the couch in the dark." Pt then changes to "I really need some coffee." Pt states "You need to call the police." Pt is refusing to go back to her bed, but is remaining calm. Will continue to monitor.
[2022-02-26] MEDS ORDERED: haloperidol lactate 5mg/ml inj IM ONE (06:55)
--- NOTE | 2022-02-26 07:09 | NUR ---
Pt continued to demand staff to call the police r/t her grandson. Pt was not redirectable and yelled "If you don't call the police you will have to put me in restraints." Security was called and pt continued to escalate. Received order for IM Haldol 10mg. Administered without issue. Pt stated "that isn't going to work and I will be back up there." (referring to nurses station.)
[2022-02-26] MEDS: oxcarbazepine 150mg tablet PO SCH ×2 (07:27→20:03)
[2022-02-26] MEDS: LORazepam 1 MG tablet PO PRN (07:27)
[2022-02-26] MEDS: pantoprazole 40mg Tablet.DR PO SCH (07:31)
--- NOTE | 2022-02-26 07:35 | NUR ---
Pt has been up and down to the nurses station, but affect and behavior is not as intense, but continues to be difficult. Pt requested morning medication, which were administered PO without issue. Pt sitting in bed drinking her coffee. Will continue to monitor.
[2022-02-26] MEDS ORDERED: sertraline 50mg tablet PO SCH (08:00)
--- NOTE | 2022-02-26 08:46 | NUR ---
Pt is resting comfortably in mid hodgson's position. Pt ate 100% of her breakfast. Pt denied all psychotic symptoms. "I am just as normal as you."
--- NOTE | 2022-02-26 10:59 | NUR ---
Patient has been up to nurses station several times asking about her grandson. Write is able to redirect after several requests. Pt is less tense then this morning.
--- NOTE | 2022-02-26 13:00 | NUR ---
Pt sitting in room playing a board game with staff.
--- NOTE | 2022-02-26 15:00 | NUR ---
Pt sitting on her bed watching T.V. Pt has been calm, but continues to fixate on the idea that her fifteen year old grandson is sitting home in the dark. She has now saying "there is a four year old home with her grandson. Staff has been able to redirect patient.
--- NOTE | 2022-02-26 16:50 | NUR ---
Pt c/o leg pain. Received order for Tylenol 650mg.
[2022-02-26] MEDS ORDERED: acetaminophen 325mg tablet PO ONE (16:55)
--- NOTE | 2022-02-26 17:15 | NUR ---
Pt calmly watching T.V
[2022-02-26] MEDS: lurasidone 60mg tablet PO SCH (17:41)
--- NOTE | 2022-02-26 19:58 | NUR ---
Rosalind hameedsonia in [facility] - 02/26/22 at 1959 by CLARIBEL The patient appears to be sleeping on hir
--- NOTE | 2022-02-26 19:59 | NUR ---
The patient appears to be sleeping on her bed. Respirations even and unlabored.
[2022-02-26] MEDS: haloperidol 5mg tablet PO SCH (20:03)
--- NOTE | 2022-02-26 22:02 | NUR ---
The patient appears to be sleeping
--- NOTE | 2022-02-26 23:32 | NUR ---
The patient appears to be sleeping
--- NOTE | 2022-02-26 23:57 | NUR ---
The patient complains of sciatic pain and MD made aware and orders received
[2022-02-27] MEDS ORDERED: naproxen 500mg tablet PO ONE
--- NOTE | 2022-02-27 00:31 | NUR ---
Patient up to use the bathroom and now back in bed
--- NOTE | 2022-02-27 01:52 | NUR ---
The patient appears to be sleeping
--- NOTE | 2022-02-27 03:09 | NUR ---
The patient appears to be sleeping
--- NOTE | 2022-02-27 05:03 | NUR ---
The patient appears to be sleeping
[2022-02-27] MEDS: oxcarbazepine 150mg tablet PO SCH ×2 (07:06→20:18)
[2022-02-27] MEDS: pantoprazole 40mg Tablet.DR PO SCH (07:06)
--- NOTE | 2022-02-27 07:40 | NUR ---
during bedside assessment, pt continues to be disorganized, delusional, hyperverbal. pt is currently fixated on her son being in [facility] and her pitbull at home that she believes is going to be shot and killed by police at her home because of barking. attempted to reorient and redirect patient multiple times-pt not redirectable. pt continues to approach the nurses station also fixated on being discharged home where she believes her son is waiting for her. prn ativan given
[2022-02-27] MEDS: LORazepam 1 MG tablet PO PRN (07:44)
--- NOTE | 2022-02-27 08:05 | NUR ---
pt called son, Noe, who reassured pt that her dog is fine and taken care of and that the agricultural engineering technician are not at her house. pt accepted this information and returned to her room. is now sitting and talking with other pt pleasantly and quietly.
--- NOTE | 2022-02-27 09:43 | NUR ---
spoke with [facility] child regarding pt requesting motrin for chronic leg pain. verbal order received for motrin 600mg [id number] prn pain. order placed as received
[2022-02-27] MEDS: ibuprofen tablet 400 MG TABLET PO PRN ×2 (09:49→17:47)
--- NOTE | 2022-02-27 10:53 | NUR ---
pt in bed watching tv and now coloring. given green scrubs and new pair of socks as pt was previously wearing hospital gown due to lack of scrub availablility. pt changed without issue
--- NOTE | 2022-02-27 16:39 | NUR ---
pt sitting in bed watching tv and conversing with pt in 22. no concerns at this time
[2022-02-27] MEDS: lurasidone 60mg tablet PO SCH (17:15)
--- NOTE | 2022-02-27 18:15 | NUR ---
Assumed care of patient. Patient lying comfortably in bed watching tv. No needs at this time.
--- NOTE | 2022-02-27 20:15 | NUR ---
Patient resting comfortably in bed. No signs of distress. No needs at this time.
[2022-02-27] MEDS: haloperidol 5mg tablet PO SCH (20:18)
--- NOTE | 2022-02-27 22:15 | NUR ---
Patient asleep in bed. No signs of distress. No needs at this time.
--- NOTE | 2022-02-27 23:30 | NUR ---
Patient ambulated to restroom and returned back to bed.
[2022-02-28] MEDS: ibuprofen tablet 400 MG TABLET PO PRN ×2 (00:09→08:38)
--- NOTE | 2022-02-28 00:11 | NUR ---
Patient woke c/o leg pain, given PRN motrin.
--- NOTE | 2022-02-28 00:25 | NUR ---
Patient lying in bed crying. When asked what was wrong patient states her legs were bothering her and she is having trouble sleeping. Motrin already given, offered patient her PRN ativan and she agreed.
[2022-02-28] MEDS: LORazepam 1 MG tablet PO PRN (00:30)
--- NOTE | 2022-02-28 01:30 | NUR ---
Patient asleep in bed. No signs of distress. No needs at this time.
--- NOTE | 2022-02-28 02:15 | NUR ---
Patient asleep in bed. No signs of distress. No needs at this time.
--- NOTE | 2022-02-28 04:15 | NUR ---
Patient asleep in bed. No signs of distress. No needs at this time.
[2022-02-28 05:50] VITALS: BP 173/95
[2022-02-28] MEDS: pantoprazole 40mg Tablet.DR PO SCH (08:38)
[2022-02-28] MEDS: oxcarbazepine 150mg tablet PO SCH (08:38)
--- NOTE | 2022-02-28 12:01 | NUR ---
Pt's son was here to see pt and talked to [facility] worker. SOn became upset and cussing AT [facility] social media assistant. sON CAME OUT HERE AND WAS SITTING BY PT'S BED AND WAS CUSSING SAYING I CAN'T BELIEVE THEY ARE "FUCKING" SENDING HER HOME. Son kept knocking on the [facility] workers door pt [facility] worker did not answer. Son finally left. Security came after son ludmila peoples left. Pt being discharged today. Son will be called to picker/puller pt.
--- NOTE | 2022-02-28 12:47 | NUR ---
Kelly Borrero pt's yhhginro-yu-ofo called and wanted to talk to [facility] worker who did not want to speak with family further as he had already discharged pt. Family does not want her to come home states charges are pending. [id number] screaming at nurse. RN told her pt is released. Tcpgitnv-yy-wci hung up on RN.
--- NOTE | 2022-02-28 13:15 | NUR ---
Diana Called order picker at 13:30.
== END 2022-02-28 14:07 ==
LOC: ER 00:19
DX: F30.9 Manic episode, unspecified (principal); Z20.822 Contact with and (suspected) exposure to COVID-19; E78.00 Pure hypercholesterolemia, unspecified; I10 Essential (primary) hypertension; J44.9 Chronic obstructive pulmonary disease, unspecified; G89.29 Other chronic pain; F41.9 Anxiety disorder, unspecified; F12.90 Cannabis use, unspecified, uncomplicated; Z86.69 Personal history of other diseases of the nervous system and sense organs; Z87.442 Personal history of urinary calculi; Z90.49 Acquired absence of other specified parts of digestive tract; Z98.890 Other specified postprocedural states; Z56.0 Unemployment, unspecified; Z88.8 Allergy status to other drugs, medicaments and biological substances; Z79.899 Other long term (current) drug therapy
CPT/HCPCS: 36415; 80053; 80305; 80320; 85025; 87635; 96372; 99285; C9803; J1200; J1630; J2060

== ENCOUNTER 2022-03-16 21:25 | Emergency (ER) | payer OTHER, MEDICAID ==
[~2022-03-16] VITALS: Ht 160 cm; Wt 65.0 kg
[~2022-03-16 21:25] MED LIST changes: -FOLI0.4T14 PO; +FOLI0.4T6 PO; +GABA-530 PO; -GABA300C PO; +HYDR-3965 PO; -IBUP-1985 PO; -LEVE500T PO; -LURA60TA PO; -OMEP20TA23 PO; -OXCA150T14 PO; -PANT-47 PO; -PROP10TA10 PO; +QUET-1 PO; -SERT100T PO; +SERT25TA PO; -TRAZ-256 PO
[2022-03-17 01:53] VITALS: BP 155/88
[2022-03-20] MEDS ORDERED: OXCA150T53 PO (15:51)
[2022-03-20] MEDS ORDERED: LEVE500T PO (15:51)
[2022-03-20] MEDS ORDERED: TRAZ-256 PO (15:51)
[2022-03-20] MEDS ORDERED: QUET-1 PO (15:51)
[2022-03-20] MEDS ORDERED: FOLI1TAB27 PO (15:51)
[2022-03-20] MEDS ORDERED: OMEP20TA43 PO (15:51)
[2022-03-20] MEDS ORDERED: OXCA150T14 PO (15:51)
[2022-03-20] MEDS ORDERED: LURA20TA PO (15:51)
[2022-03-20] MEDS ORDERED: SERT50TA PO (15:51)
== END 2022-03-17 01:57 | disposition home or self-care (01) ==
LOC: ER 21:27
DX: F31.9 Bipolar disorder, unspecified (principal); M54.50 Low back pain, unspecified; G89.29 Other chronic pain; E78.00 Pure hypercholesterolemia, unspecified; I10 Essential (primary) hypertension; J44.9 Chronic obstructive pulmonary disease, unspecified; F41.9 Anxiety disorder, unspecified; F12.90 Cannabis use, unspecified, uncomplicated; Z87.442 Personal history of urinary calculi; Z86.69 Personal history of other diseases of the nervous system and sense organs; Z90.49 Acquired absence of other specified parts of digestive tract; Z98.890 Other specified postprocedural states; Z56.0 Unemployment, unspecified; Z79.899 Other long term (current) drug therapy
CPT/HCPCS: 99281

== ENCOUNTER 2022-03-18 13:55 | Emergency (ER) | payer OTHER, MEDICAID ==
[~2022-03-18] VITALS: Ht 160 cm; Wt 77.3 kg
[2022-03-18 14:01] VITALS: BP 128/86
[2022-03-20] MEDS ORDERED: LURA20TA PO (15:51)
[2022-03-20] MEDS ORDERED: QUET-1 PO (15:51)
[2022-03-20] MEDS ORDERED: OMEP20TA43 PO (15:51)
[2022-03-20] MEDS ORDERED: OXCA150T53 PO (15:51)
[2022-03-20] MEDS ORDERED: FOLI1TAB27 PO (15:51)
[2022-03-20] MEDS ORDERED: SERT50TA PO (15:51)
[2022-03-20] MEDS ORDERED: TRAZ-256 PO (15:51)
[2022-03-20] MEDS ORDERED: OXCA150T14 PO (15:51)
[2022-03-20] MEDS ORDERED: LEVE500T PO (15:51)
[2022-03-22] MEDS ORDERED: SERT50TA PO (00:12)
[2022-03-26] MEDS ORDERED: SERT150C PO (16:49)
[2022-03-26] MEDS ORDERED: QUET100T34 PO (16:49)
[2022-03-26] MEDS ORDERED: OXCA150T14 PO (16:49)
[2022-03-26] MEDS ORDERED: LURA40TA2 PO (16:49)
[2022-03-26] MEDS ORDERED: TRAZ-256 PO (16:49)
== END 2022-03-18 14:24 | disposition home or self-care (01) ==
LOC: ER 13:56
DX: M54.50 Low back pain, unspecified (principal); G89.29 Other chronic pain; F31.9 Bipolar disorder, unspecified; E78.00 Pure hypercholesterolemia, unspecified; I10 Essential (primary) hypertension; J44.9 Chronic obstructive pulmonary disease, unspecified; F41.9 Anxiety disorder, unspecified; F12.90 Cannabis use, unspecified, uncomplicated; Z76.5 Malingerer [conscious simulation]; Z86.69 Personal history of other diseases of the nervous system and sense organs; Z87.442 Personal history of urinary calculi; Z90.49 Acquired absence of other specified parts of digestive tract; Z56.0 Unemployment, unspecified; Z79.899 Other long term (current) drug therapy
CPT/HCPCS: 99283

== ENCOUNTER 2022-04-15 10:41 | Inpatient (IN) | payer OTHER, MEDICAID ==
[~2022-04-15] VITALS: Ht 160 cm; Wt 74.0 kg
[~2022-04-15 10:41] MED LIST changes: -FOLI0.4T6 PO; +FOLI1TAB27 PO; -GABA-530 PO; -HYDR-3965 PO; +LEVE500T PO; +LURA40TA2 PO; +OMEP20TA43 PO; +OXCA150T14 PO; -QUET-1 PO; +QUET100T34 PO; +SERT150C PO; -SERT25TA PO; +TRAZ-256 PO
[2022-04-15 13:15] LABS: BASOPHILS % (AUTO) 0.2 % (0-1); EOSINOPHILS % (AUTO) 0 % (0-6); HEMATOCRIT 37.7 % (35.0-45.0); HEMOGLOBIN 12.6 g/dl (12.0-16.0); LYMPHOCYTES # (AUTO) 0.9 X10'3 (1.1-4.8); LYMPHOCYTES % (AUTO) 15.9 % (21-51); MEAN CORPUSCULAR HEMOGLOBIN 28.3 PG (27.0-31.0); MEAN CORPUSCULAR HGB CONC 33.4 g/dL (33.0-36.5); MEAN CORPUSCULAR VOLUME 84.6 FL (78-98); MEAN PLATELET VOLUME 7.5 FL (7.4-10.4); MONOCYTES # (AUTO) 0.3 X10'3 (0-0.9); MONOCYTES % (AUTO) 5.8 % (2-12); NEUTROPHILS # (AUTO) 4.3 X10'3 (1.8-7.7); NEUTROPHILS % (AUTO) 78.1 % (42-75); PLATELET COUNT 237 X10'3 (140-440); RED BLOOD COUNT 4.45 X10'6 (4.20-5.60); RED CELL DISTRIBUTION WIDTH 14.2 % (11.5-14.5); WHITE BLOOD COUNT 5.5 X10'3 (4.5-11.0)
[2022-04-15 13:27] LABS: ALANINE AMINOTRANSFERASE 16 U/L (12-78); ALBUMIN 3.9 G/DL (3.4-5.0); ALBUMIN/GLOBULIN RATIO 1.3 (1.1-1.5); ALKALINE PHOSPHATASE 85 IU/L (46-116); ANION GAP 10 (8-16); ASPARTATE AMINO TRANSFERASE 15 U/L (10-37); BILIRUBIN,TOTAL 0.5 MG/DL (0.1-1.0); BLOOD UREA NITROGEN 17 MG/DL (7-18); BUN/CREATININE RATIO 22.4 (6.6-38.0); CALCIUM 9.2 MG/DL (8.5-10.1); CHLORIDE 102 MMOL/L (99-107); CREATININE 0.76 MG/DL (0.40-0.90); GLUCOSE 97 MG/DL (70-104); POTASSIUM 3.8 MMOL/L (3.5-5.1); SODIUM 138 MMOL/L (135-145); TOTAL CARBON DIOXIDE 26.4 MMOL/L (24-32); eGFR 77 ML/MIN
[2022-04-15 13:35] LABS: CLARITY,URINE CLEAR (Clear); GLUCOSE, URINE NEGATIVE (Neg); KETONES,URINE NEGATIVE (Neg); LEUKOCYTE ESTERASE ,URINE NEGATIVE (Neg); NITRITES, URINE NEGATIVE (Neg); OCCULT BLOOD,URINE NEGATIVE (Neg); PROTEIN,URINE NEGATIVE (Neg); UROBILINOGEN,URINE 0.2 E.U/dL (0.2-1.0)
[2022-04-15 13:38] LABS: COLOR,URINE STRAW (Yellow); UA COLLECTION TYPE CLN CATCH MIDSTREAM
[2022-04-15 13:47] LABS: URINE AMPHETAMINE SCREEN NEGATIVE (Neg); URINE BARBITUATE SCREEN NEGATIVE (Neg); URINE BENZODIAZEPINES SCREEN NEGATIVE (Neg); URINE CANNABINOID SCREEN POSITIVE (Neg); URINE COCAINE SCREEN NEGATIVE (Neg); URINE METHADONE SCREEN NEGATIVE (Neg); URINE OPIATE SCREEN NEGATIVE (Neg); URINE PHENCYCLIDINE SCREEN NEGATIVE (Neg)
[2022-04-15] MEDS ORDERED: KEP500T PO (21:51)
[2022-04-15] MEDS ORDERED: AMLO10TA48 PO (21:51)
[2022-04-15] MEDS ORDERED: OMEP20CA16 PO (21:54)
[2022-04-15] MEDS ORDERED: LURA20TA PO (21:55)
[2022-04-15] MEDS ORDERED: OXCA150T14 PO (21:58)
[2022-04-15] MEDS ORDERED: TRAZ-256 PO (21:59)
[2022-04-15] MEDS ORDERED: QUET-1 PO (22:07)
[2022-04-15] MEDS ORDERED: naproxen 500mg tablet PO ONE (22:20)
[2022-04-15] MEDS ORDERED: quetiapine 100mg tablet PO ONE (22:20)
[2022-04-15] MEDS ORDERED: traZODone 50mg tablet PO ONE (22:20)
--- NOTE | 2022-04-16 00:51 | NUR ---
Patient is sleeping in a prone position. No distress.
--- NOTE | 2022-04-16 03:08 | NUR ---
Patient is sleeping quietly on her left side.
--- NOTE | 2022-04-16 04:27 | NUR ---
Patient is sleeping quietly on her left side.
--- NOTE | 2022-04-16 06:52 | NUR ---
Patient sleeping on her left side. No distress observed. Continue to monitor.
[2022-04-16] MEDS: naproxen 500mg tablet PO PRN ×2 (07:23→18:54)
--- NOTE | 2022-04-16 07:30 | NUR ---
Patient awake and ambulatory, steady gait to nurse's station. No distress observed. Continue to monitor.
[2022-04-16] MEDS: oxcarbazepine 150mg tablet PO SCH ×2 (07:49→20:40)
[2022-04-16] MEDS: lurasidone 20mg tablet PO SCH (07:49)
[2022-04-16] MEDS: amLODIPine 5mg tablet PO SCH ×2 (07:49→07:58)
[2022-04-16] MEDS: pantoprazole 40mg Tablet.DR PO SCH (07:49)
[2022-04-16] MEDS: levetiracetam 250mg tablet PO SCH (07:50)
--- NOTE | 2022-04-16 08:06 | NUR ---
Patient eating breakfast. No distress observed. Continue to monitor.
--- NOTE | 2022-04-16 10:02 | NUR ---
Patient is needy and asking for milk, then OJ, mouthwash, socks.....Patient is calm and cooperative.
--- NOTE | 2022-04-16 12:03 | NUR ---
Patient eating breakfast. No distress observed. Continue to monitor.
--- NOTE | 2022-04-16 13:11 | NUR ---
Patient coloring with markers. No distress observed. Continue to monitor.
[2022-04-16 13:20] VITALS: BP 144/86
[2022-04-16] MEDS ORDERED: loperamide 2mg capsule PO PRN (14:00)
[2022-04-16] MEDS ORDERED: magnesium hydroxide 30ml (MOM) UD suspension PO PRN (14:00)
[2022-04-16] MEDS ORDERED: NICOTINE POLACRILEX 2 MG LOZENGE BC PRN (14:00)
[2022-04-16] MEDS ORDERED: mag hydrox/Alum hydrox/simeth 30ml oral suspension PO PRN (14:00)
--- NOTE | 2022-04-16 14:11 | NUR ---
Admission note: Pt admitted today to [facility] on 5150 for GD from our ER at 1320. Dari is unable to provide food, clothing and mcc despite family support. She is confused, disorganized and exhibits delusional beliefs. She has history of Bipolar. Addendum: 04/16/22 at 1532 by Tiara Soni RN Pt. was cooperative with assessment, however she presents as hypomanic with pressured speech and a tangental thought process. Pt. is A&O X3, however reports she has no idea why she is here and presents with disorganization. Pt. scored as a moderate risk on the [place] Suicide Risk Assessment, this was endorsed to Dr. Mata and Q 15min safety checks were ordered. She currently denies any S/I or plan. Pt. is reporting some H/I towards her family r/t the recent conflict between them, however she denies any currently plan.
[2022-04-16 19:32] VITALS: BP 143/102
[2022-04-16] MEDS: quetiapine 100mg tablet PO SCH (20:40)
[2022-04-16] MEDS: traZODone 50mg tablet PO SCH (20:40)
--- NOTE | 2022-04-16 22:04 | NUR ---
Problem : [facility] from our ER at 1320. Dari is unable to provide food, clothing and usp despite family support. She is confused, disorganized and exhibits delusional beliefs. She has history of Bipolar. Interventions :Provided 1:1 assessment, established rapport, active listening and positive encouragement, medication administration, maintained a safe and supportive environment, ensured contract for safety, provided redirection as needed, and maintained Q 15 min safety checks. Response : Pt was in the hallway at change of shift c/o sciatica pain. Pt was given PRN with good effect. Pt talks about having problems w/her family, talking about Son not taking her to Need, not bringing her car back and giving her medicine that belongs to his . Pts speech is tangential and she talks about wanting to live on her own. Pt states "nobody lets me do my own meds, but I know how to do them." Pt earlier told me that she takes Keppra for depression because it's not an antibiotic in her body. Pt continues to make delusional stmtns. Pt spent time drawing, socializing with peers and had snack. Pt took HS meds and went to bed. Plan :Pt. requires interruption of current crisis, medication adjustments, and a safe and supportive environment.
[2022-04-17] MEDS: acetaminophen 325mg tablet PO PRN ×2 (05:13→22:14)
[2022-04-17] MEDS: pantoprazole 40mg Tablet.DR PO SCH (07:02)
[2022-04-17] MEDS: oxcarbazepine 150mg tablet PO SCH ×2 (07:02→20:04)
[2022-04-17] MEDS: lurasidone 20mg tablet PO SCH (07:02)
[2022-04-17] MEDS: levetiracetam 250mg tablet PO SCH (07:02)
[2022-04-17] MEDS: amLODIPine 5mg tablet PO SCH (07:04)
[2022-04-17 07:28] LABS: CHOL/HDL RATIO 3.9 (0.00-4.99); CHOLESTEROL 237 MG/DL (0-200); HDL CHOLESTEROL 61 MG/DL (35-60); LDL CHOLESTEROL 146 MG/DL (50-100); TRIGLYCERIDES 71 MG/DL (20-135)
[2022-04-17 08:00] VITALS: BP 110/69
--- NOTE | 2022-04-17 09:20 | NUR ---
Late Note: Assessment Presenting Issues: Pt's 5150'd & admitted to [facility] due to GD concerns. Interventions: Clinician met w/pt and engaged her in completing her psychosocial assessment. Pt was not able to fully participate in the assessment process due to tangential, confused thought process, poor memory & concentration. Pt gave verbal consent for clinician to contact her son and gather collateral info. Clinician had t/c w/Noe, pt's son, left vm requesting rt t/c. A portion of the assessment was completed via chart review. Plan: Clinician will f/u with family to obtain collateral info pertaining to the precipitating events that led to this [facility] admission. Lakesha Vega LCSW Addendum: 04/19/22 at 0924 by Lakesha Vega SS Amended: Links added.
--- NOTE | 2022-04-17 15:49 | NUR ---
Nursing Progress Note: Dari Problem: Patient is unable to provide food, clothing and residential despite family support. She is confused, disorganized and exhibits delusional beliefs. She has history of Bipolar. Intervention: Medication given as ordered. Provided with a safe and therapeutic environment, clear communication, active listening and positive encouragement. Response: Patient is resting quietly in bed at the start of the shift. Cooperative with medication and assessment. Spends much of her time in the community room. She socializes with peers. Denies any suicidal/ homicidal ideation or auditory/ visual hallucinations. Speech is clear and she is able to answer questions appropriately but she displays some delusional thinking. Patient is intrusive when staff is with other patients and she often attempts to give medical advice to other patients. Plan: Patient continues to require crisis interruption and stabilization with medication management and monitoring in a safe and therapeutic environment.
[2022-04-17 19:32] VITALS: BP 142/84
[2022-04-17] MEDS: traZODone 50mg tablet PO SCH (20:05)
[2022-04-17] MEDS: quetiapine 100mg tablet PO SCH (20:07)
--- NOTE | 2022-04-18 00:38 | NUR ---
Nursing Progress Note: Dari Problem: Patient is unable to provide food, clothing and long term despite family support. She is confused, disorganized and exhibits delusional beliefs. She has history of Bipolar. Intervention: Medication given as ordered. PRN Tylenol given for pain in bilateral legs and right hip. Provided with a safe and therapeutic environment, clear communication, active listening and positive encouragement. Response: Patient was coloring with others at the start of the shift, she stated, "I am having a good time." Cooperative with medication and assessment. Spends much of her time in the community room. She socializes with peers. Denies any suicidal/ homicidal ideation or auditory/ visual hallucinations. Speech is clear and she is able to answer questions appropriately. Plan: Patient continues to require crisis interruption and stabilization with medication management and monitoring in a safe and therapeutic environment.
[2022-04-18 07:12] VITALS: BP 147/84
[2022-04-18] MEDS: lurasidone 20mg tablet PO SCH (07:20)
[2022-04-18] MEDS: oxcarbazepine 150mg tablet PO SCH ×2 (07:20→19:52)
[2022-04-18] MEDS: amLODIPine 5mg tablet PO SCH (07:20)
[2022-04-18] MEDS: pantoprazole 40mg Tablet.DR PO SCH (07:20)
[2022-04-18] MEDS: levetiracetam 250mg tablet PO SCH (07:20)
[2022-04-18] MEDS: atorvastatin 20mg tablet PO SCH (07:21)
--- NOTE | 2022-04-18 14:15 | NUR ---
Collateral w/Attending Physician Presenting Issues: Per consultation w/attending physician, a 5250 will be provided and referral to [facility] for an LPS eval is warranted. Attending physician request clinician to join him to break the news to pt. Interventions: Clinician joined attending physician's session w/pt to inform pt of plan for a 5250 and referral for LPS eval. Pt struggled to understand what the physician was trying to tell her, pt at times appears to argue w/physician however, this may be due to pt becoming anxious & fearful with the reality of having to stay in the hospital longer and the possibility of being conserved. Pt disagreed w/physician's plan and may contest the 5250 when it is heard. Plan: Clinician will f/u w/[facility] re referral for a LPS eval and continue to monitor pt's progress & sxs. CATY BeckfordW Addendum: 04/19/22 at 0936 by Lakesha Vega SS Amended: Links added.
--- NOTE | 2022-04-18 15:20 | NUR ---
CM-Continuity of Care Presenting Issues: Pt;s 5150 will tomorrow afternoon; pt is often re-admitted w/in 30-days of d/c. This time pt has no housing to and resist care given by family. Interventions: Clinician consulted w/attending physician re the appropriateness of a LPS eval, per consultation a petition for LPS eval was completed and sent to [facility]. Clinician joined attending physician to inform pt of plan for 5250 to allow [facility] & time to meet w/pt and determine if pt would benefit from LPS Conservatorship. Pt was tangential, argumentative, confused and exhibited disorganized thought. Pt is adamant that she is not on a 5150 Hold and blames her son & dtr in-law for her re-admission. Attending physician informed pt of plan for 5250 & LPS eval. Pt not in agreement and was informed that she has the option to contest the 5250 at the hearing. Pt plans on doing so. Plan: Clinician will continue to monitor and engage pt & [facility] activities when appropriate. Lakesha Vega LCSW Addendum: 04/18/22 at 1527 by Lakesha Vega SS Amended: Links added.
--- NOTE | 2022-04-18 16:30 | NUR ---
Nursing Progress Note: Dari Problem: Patient is unable to provide food, clothing and snf despite family support. She is confused, disorganized and exhibits delusional beliefs. She has history of Bipolar. Intervention: Medication given as ordered. Provided with a safe and therapeutic environment, clear communication, active listening and positive encouragement. Response: Patient is awake in her room at the start of the shift. Cooperative with assessment and medications. Socializes on the unit with peers. Patient is intrusive with other patients care but is able to be redirected. She makes frequent delusional statements and does not appear to understand the circumstances surrounding her admission. Noted talking to herself at times. Plan: Patient continues to require crisis interruption and stabilization with medication management and monitoring in a safe and therapeutic environment.
[2022-04-18] MEDS: traZODone 50mg tablet PO SCH (19:52)
[2022-04-18] MEDS: quetiapine 100mg tablet PO SCH (19:53)
[2022-04-18] MEDS: acetaminophen 325mg tablet PO PRN (19:54)
[2022-04-18 20:34] VITALS: BP 140/92
--- NOTE | 2022-04-18 21:20 | NUR ---
Nursing Progress Note: Dari Problem: Patient is unable to provide food, clothing and assisted despite family support. She is confused, disorganized and exhibits delusional beliefs. She has history of Bipolar. Intervention: Medication given as ordered. Provided with a safe and therapeutic environment, clear communication, active listening and positive encouragement. PRN Tylenol given for pain in bilateral legs. Response: Patient in community room at beginning of shift sitting with peers. Cooperative with assessment and medications. Socializes on the unit with peers. Patient tearful tonight upset about not being able to leave today. She wanted to apply for [facility] housing and be back out in the world. Patient stated that "She wanted to " and when asked if she had a plan she said "yes" that she wanted to "cut her wrists". Patient was asked if she wanted to hurt anyone and she said "no" then stated "Well maybe Dr. Calzada." She blames him for her having to stay here. She denies hallucinations. Patient's room was checked for safety by the Charge. Plan: Patient continues to require crisis interruption and stabilization with medication management and monitoring in a safe and therapeutic environment.
[2022-04-19] MEDS: naproxen 500mg tablet PO PRN (03:13)
[2022-04-19 06:57] VITALS: BP 118/60
[2022-04-19 07:55] VITALS: BP 118/60
[2022-04-19] MEDS: lurasidone 20mg tablet PO SCH (08:06)
[2022-04-19] MEDS: pantoprazole 40mg Tablet.DR PO SCH (08:06)
[2022-04-19] MEDS: levetiracetam 250mg tablet PO SCH (08:06)
[2022-04-19] MEDS: oxcarbazepine 150mg tablet PO SCH ×2 (08:06→20:12)
[2022-04-19] MEDS: amLODIPine 5mg tablet PO SCH (08:07)
[2022-04-19] MEDS: atorvastatin 20mg tablet PO SCH (08:07)
--- NOTE | 2022-04-19 12:06 | NUR ---
CM-Continuity of Care Presenting Issues: Pt's 5150 will today, attending physician will provide 5250, pt's been referred for LPS eval. Interventions: Clinician had t/c with Katelyn Washington, pt's [facility] CM, per t/c, Katelyn will present case at clinical care committee to determine appropriate outpatient options for pt. [facility] may offer [facility] support to clt for 30-days to allow [facility] care team time to engage w/pt. [facility] will provide full psych eval. Pt's [facility] CM will meet w/pt this afternoon at 2 PM. Plan: Clinician will continue to monitor pt's progress and collaborate w/[facility] w/re to dcp activities. Lakesha Vega LCSW Addendum: 04/19/22 at 1222 by Lakesha Vega SS Amended: Links added.
--- NOTE | 2022-04-19 15:24 | NUR ---
Nursing Progress Note: Problem: Patient is unable to provide food, clothing and half-way despite family support. She is confused, disorganized and exhibits delusional beliefs. She has history of Bipolar. Intervention: Medication given as prescribed. Served pt with 5250. Provided therapeutic communication with active listening. Encouraged pt to shower and change green unit scrubs. Response: Pt compliant with medication administration. She is tearful, somewhat confused, when served the 5250. Thought process delusional, "I came her to visit friends now look I can't go home. Pt socializes most of the morning but after being placed on a 5250 she is observed isolating. Socializes on the unit with peers. Patient is intrusive with other patients care but is able to be redirected. Plan: Patient continues to require crisis interruption and stabilization with medication management and monitoring in a safe and therapeutic environment.
[2022-04-19 19:53] VITALS: BP 111/80
[2022-04-19] MEDS: traZODone 50mg tablet PO SCH (20:12)
[2022-04-19] MEDS: quetiapine 100mg tablet PO SCH (20:12)
--- NOTE | 2022-04-19 21:26 | NUR ---
Safety Check: Due to earlier reports of patient stating to slit her wrists and stashing silverware a safety check in her room was conducted to look for any harmful items or objects. Several plastic knifes, forks and spoons were found in the patients basin hidden underneath her towel and clothing and promptly removed.
--- NOTE | 2022-04-19 23:51 | NUR ---
Nursing Progress Note: Dari Problem: Patient is unable to provide food, clothing and retirement despite family support. She is confused, disorganized and exhibits delusional beliefs. She has history of Bipolar. Intervention: Medication given as ordered. Provided with a safe and therapeutic environment, clear communication, active listening and positive encouragement. Response: Patient spent most of the evening in a happy mood, chatting with cohorts and coloring in community room. Patient believes she brought herself here to, "relax and reboot and then go home." The patient often talks about past patients that had stayed on the unit but either been placed or gone home. Patient often reports sharing her belongings from home with other patients. Patient has flight of ideas and makes delusional statements. Reports from day shift of patient wanting to slit her wrists and hiding plastic silverware to harm self. Safety check of room completed and several plastic utensils found and removed from room. Patient took evening meds w/o complications and went to bed shortly after. Plan: Patient continues to require crisis interruption and stabilization with medication management and monitoring in a safe and therapeutic environment.
[2022-04-20] MEDS: naproxen 500mg tablet PO PRN ×2 (04:23→21:59)
[2022-04-20 07:05] VITALS: BP 138/69
[2022-04-20] MEDS: lurasidone 20mg tablet PO SCH (07:44)
[2022-04-20] MEDS: pantoprazole 40mg Tablet.DR PO SCH (07:44)
[2022-04-20] MEDS: oxcarbazepine 150mg tablet PO SCH ×2 (07:44→20:08)
[2022-04-20] MEDS: levetiracetam 250mg tablet PO SCH (07:45)
[2022-04-20] MEDS: atorvastatin 20mg tablet PO SCH (07:45)
[2022-04-20] MEDS: amLODIPine 5mg tablet PO SCH (07:46)
--- NOTE | 2022-04-20 08:35 | NUR ---
Initial: Pt admit for being gravely disabled. Currently on a regular diet and overall eating well with mostly 75-100% PO intake of meals meeting estimated nutrient needs. LBM 04/19. No documented edema or wounds. No nutrition diagnosis at this time. Will continue to follow. Recommendations: 1) Continue regular diet 2) Bowel care PRN 3) Weekly scaled weights Addendum: 04/20/22 at [address] Amended: Links added.
--- NOTE | 2022-04-20 14:49 | NUR ---
LPS REFERRAL UPDATE Per email from [facility]: "At this time, [facility] is not moving forward with LPS for Dari Stearns and will instead put in an urgent request for psychological testing and discuss a plan for her in our upcoming Clinical Care meeting on 04/26/22." ISATU Lorenzo
--- NOTE | 2022-04-20 17:24 | NUR ---
Nursing Progress Note: Dari Problem: Patient is unable to provide food, clothing and retirement despite family support. She is confused, disorganized and exhibits delusional beliefs. She has history of Bipolar. Today pt. presents as hyper verbal, easily agitated, and has a flight of ideas. Intervention: Video Software Engineer continues to provide pt. with a safe and therapeutic environment, clear communication, active listening and positive encouragement. Medications administered. Pt. encouraged to participate in group therapy, and 1:1 assessment provided. Response: Pt. struggles to stay on topic during assessment often bouncing between ideas from her son soiling his pants which required washing the laundry to her grandson issues, then to her book reviewer of her apartment. Video Software Engineer observed pt. playing Bingo during therapy and she often became irritable if she did not win, threatening to quit, and blaming her cohort for her loss. Pt. attended all meals and snacks and spent most of the shift OOB coloring or watching TV. She engages socially with cohorts, attended group, she presents as constricted with brightening. Plan: Patient continues to require crisis interruption and stabilization with medication management and monitoring in a safe and therapeutic environment.
[2022-04-20 18:58] VITALS: BP 123/79
[2022-04-20 19:00] VITALS: BP 123/79
[2022-04-20] MEDS: traZODone 50mg tablet PO SCH (20:09)
[2022-04-20] MEDS: quetiapine 100mg tablet PO SCH (20:09)
--- NOTE | 2022-04-20 22:52 | NUR ---
Nursing Progress Note: Dari Problem: Patient is unable to provide food, clothing and snf despite family support. She is confused, disorganized and exhibits delusional beliefs. She has history of Bipolar. Intervention: Medication given as ordered. Provided with a safe and therapeutic environment, clear communication, active listening and positive encouragement. Response: Patient in community room coloring pictures and sitting with cohorts. The patient is pleasant and polite. The pt laid down in her room after watching a movie. The patient took evening meds w/o complications. The patient Denied S/I, H/I and A/H V/H. The patient talks about other patients and can be intrusive at times. The patient woke up after med pass and complained about leg pain. Naproxen was given with positive effect. Plan: Patient continues to require crisis interruption and stabilization with medication management and monitoring in a safe and therapeutic environment.
[2022-04-21] MEDS: pantoprazole 40mg Tablet.DR PO SCH (07:30)
[2022-04-21] MEDS: atorvastatin 20mg tablet PO SCH ×2 (07:43→20:26)
[2022-04-21] MEDS: levetiracetam 250mg tablet PO SCH ×2 (07:43→20:26)
[2022-04-21] MEDS: amLODIPine 5mg tablet PO SCH (07:43)
[2022-04-21] MEDS: oxcarbazepine 150mg tablet PO SCH ×2 (07:44→20:26)
[2022-04-21 08:00] VITALS: BP 122/63
[2022-04-21] MEDS ORDERED: lurasidone 20mg tablet PO SCH (08:00)
--- NOTE | 2022-04-21 08:30 | NUR ---
Pt. refused all PO scheduled routine meds this morning
--- NOTE | 2022-04-21 16:30 | NUR ---
Nursing Progress Note: Dari Problem: Patient is unable to provide food, clothing and half-way despite family support. She is confused, disorganized and exhibits delusional beliefs. She has history of Bipolar. Today pt. perseverates on location she wants to be buried while tearful, non-compliant with medication, and easily agitated. Intervention: Motocross Racer continues to provide pt. with a safe and therapeutic environment, clear communication, active listening and positive encouragement. Pt. encouraged to participate in group therapy, and 1:1 assessment provided. Response: Pt. refused to wake for breakfast, yelling at selling underwriter while tearful My own family wont even bury me where I want to be buried Motocross Racer attempted to redirect pt. and encouraged her to take her prescribed medication, but she refused stating my family isnt gonna give me these pills when I leave here, I dont want it, Im not eating either Pt. stayed in bed until 1245 when lunch was delivered. Pt. refused to participate in most of assessment, nor did she change her clothes or tend to her personal hygiene. Pt. later observed walking by selling underwriter on her way back to her room mumbling to herself and staring at selling underwriter intensely. At 1500 pt. exited her room and colored until dinner. Plan: Patient continues to require crisis interruption and stabilization with medication management and monitoring in a safe and therapeutic environment.
[2022-04-21] MEDS: lurasidone 20mg tablet PO SCH (17:54)
[2022-04-21 19:00] VITALS: BP 124/72
[2022-04-21] MEDS: traZODone 50mg tablet PO SCH (20:25)
[2022-04-21] MEDS: quetiapine 100mg tablet PO SCH (20:26)
[2022-04-21] MEDS: naproxen 500mg tablet PO PRN (22:09)
--- NOTE | 2022-04-21 23:35 | NUR ---
Nursing Progress Note: Dari Problem: Patient is unable to provide food, clothing and senior living despite family support. She is confused, disorganized and exhibits delusional beliefs. She has history of Bipolar. Intervention: Medication given as ordered. Provided with a safe and therapeutic environment, clear communication, active listening and positive encouragement. Response: Patient in community room coloring and watching a movie at shift change. The patient denies all MH S/S. The patient did talk about past patients and who she could remember and who she believed was new to the unit. The patient took her evening meds w/o complications. The patient at ea snack at snack time and went to bed shortly after. The patient woke up an hour after she went to bed stating that her legs hurt. The patient was provided with Naproxen with good effect. Plan: Patient continues to require crisis interruption and stabilization with medication management and monitoring in a safe and therapeutic environment.
[2022-04-22 08:00] VITALS: BP 149/76
[2022-04-22] MEDS: amLODIPine 5mg tablet PO SCH (08:02)
[2022-04-22] MEDS: pantoprazole 40mg Tablet.DR PO SCH (08:02)
[2022-04-22] MEDS: oxcarbazepine 150mg tablet PO SCH ×2 (08:03→20:27)
--- NOTE | 2022-04-22 16:46 | NUR ---
Nursing Progress Note: Problem: Pt admitted 04/16 to [place] for [facility] on 5150 for GD. Dari is unable to provide food, clothing and detention despite family support. She is confused, disorganized and exhibits delusional beliefs. She has history of Bipolar. Interventions: At 0630, the patient was awakened by the PCT to take her Vital Signs, which she abruptly refused. At 0755, patient was still lying in bed, and was informed her breakfast was ready in the Community Room. Patient got up out of bed sobbing loudly, and laid her head down on the Dining Room table continuing to cry uncontrollably and appeared disorganized and was making incorrect statements about Its nighttime. Leave me alone. I will only sleep more and I dont want to sleep more, so quit waking me up so early in the mornings. Attempt to reorient the patient was unsuccessful. Patient was argumentative about verbal communication this grant writer informed her of (time of day, medications, staff members). Response: After approximately 60 minutes of crying, disorganized thought process, and refusing all medication, the patient finally took her morning medications. After approximately 70 minutes in the dining room, the patient stopped crying and returned to her bed. Patient slept on her bed about one hour, then returned to the Community Room and started coloring pictures. Spoke with GISSELL Salazar, after reviewing this patients records: Patient has had 3 admissions in 2 months. Patients son, Noe, is her [facility] Worker. Review on Record shows: 11/2021 Last ED visit to [facility] 02/25 GD Stopped Medications. 03/10 DTS/GD Stopped medications and eating. Admitted 03/10 -03/15. 03/16 ED Visit only then Dcd 03/18 Overflow. Off medications. Admitted 03/22 to 03/26 then discharged 04/16 to present admission to [facility] Stopped medications. Recommendation: Patient reports They keep kicking me out. Its my home ([facility]). They only recently started living there. If they are mad at me, they bring me right here. Why am I always the one who gets kicked out when its my home Patient reports Im not getting my medications from my son Noe, and he is not making sure I get food. And when he gets mad at me, he brings me here every time. Spoke to GISSELL Salazar to make suggestion that the patient might require a new IHSS worker that is helping the patient with medication compliance and meals when she is discharged to home. With 3 admissions in less than 2 months, it may be the patient is not receiving the level of care that she needs at this time. Plan: Patient continues to require a safe and supportive environment and medication adjustments.
[2022-04-22] MEDS: lurasidone 20mg tablet PO SCH (17:57)
[2022-04-22 19:23] VITALS: BP 116/55
[2022-04-22] MEDS: traZODone 50mg tablet PO SCH (20:26)
[2022-04-22] MEDS: levetiracetam 250mg tablet PO SCH (20:26)
[2022-04-22] MEDS: atorvastatin 20mg tablet PO SCH (20:27)
[2022-04-22] MEDS: quetiapine 100mg tablet PO SCH (20:27)
[2022-04-22] MEDS: naproxen 500mg tablet PO PRN (21:42)
--- NOTE | 2022-04-23 00:45 | NUR ---
Nursing Progress Note: Dari Problem: Patient is unable to provide food, clothing and care home despite family support. She is confused, disorganized and exhibits delusional beliefs. She has history of Bipolar. Intervention: Medication given as ordered. Provided with a safe and therapeutic environment, clear communication, active listening and positive encouragement. Response: Patient in community room coloring at shift change. Thought process disorganized and tangential. Pt irritable but did cooperate with care, took all medications. Pt c/o pain in her legs given Naproxen with good effect. Plan: Patient continues to require crisis interruption and stabilization with medication management and monitoring in a safe and therapeutic environment.
[2022-04-23 08:00] VITALS: BP 117/59
[2022-04-23] MEDS: pantoprazole 40mg Tablet.DR PO SCH (08:04)
[2022-04-23] MEDS: oxcarbazepine 150mg tablet PO SCH ×2 (08:04→20:07)
[2022-04-23] MEDS: amLODIPine 5mg tablet PO SCH (08:05)
--- NOTE | 2022-04-23 16:36 | NUR ---
Nursing Progress Note: Problem: Pt admitted 04/16 to [place] for [facility] on 515 for GD. Dari is unable to provide food, clothing and penitentiary despite family support. She is confused, disorganized and exhibits delusional beliefs. She has history of Bipolar. Interventions: Maintained a safe and supportive environment, administered medication per orders with no adverse side effects, provided clear and simple instructions, provided active listening and positive encouragement, encouraged participation on the unit and with ADLs Response: Received patient sleeping at shift change. Pt woke in a more pleasant mood this morning. Pt was compliant with care and medications, no hesitation when administered. Pt spent most of her day sitting in group room coloring. I still dont understand why they want to lock me up. My son is a.. I wont repeat that here. Pt had intermittent tangential moments about her son and [id number]. I like Gain better then Tide and she is always using it. I hide it from her and she goes looking for it. My phone is free and so is my sons. He always takes my phone. Pt is talkative with peers, even if they dont want to talk. Plan: Patient has had eight ER/Hospital visits in 2021. Pt is not med compliant or has a difficult time getting her medications after she is discharged. Pts living situation is dysfunctional. Pt needs to be stabilized on medication and a safe discharge plan devised.
[2022-04-23] MEDS: lurasidone 20mg tablet PO SCH (17:26)
[2022-04-23 19:54] VITALS: BP 116/81
[2022-04-23] MEDS: atorvastatin 20mg tablet PO SCH (20:07)
[2022-04-23] MEDS: quetiapine 100mg tablet PO SCH (20:07)
[2022-04-23] MEDS: traZODone 50mg tablet PO SCH (20:08)
[2022-04-23] MEDS: levetiracetam 250mg tablet PO SCH (20:08)
[2022-04-23] MEDS: naproxen 500mg tablet PO PRN (22:25)
--- NOTE | 2022-04-24 00:38 | NUR ---
Nursing Progress Note: Problem: Pt admitted 04/16 to [place] for [facility] on 5150 for GD. Dari is unable to provide food, clothing and residential despite family support. She is confused, disorganized and exhibits delusional beliefs. She has history of Bipolar. Interventions: Maintained a safe and supportive environment, administered medication per orders with no adverse side effects, provided clear and simple instructions, provided active listening and positive encouragement, encouraged participation on the unit and with ADLs Response: Patient seen in the group room for 1:1. She sits at the table coloring or watching shows on TV. Patient is pleasant with staff and she speaks clearly. Conversation is mostly linear until she goes off on a tangent about her family, mostly son and [id number], "they treat me like shit." Patient can be intrusive with other clients, makes comments about her peers that they don't want or need to hear. She denies all MH symptoms, but is disorganized at times. She was compliant with HS med pass and went to bed after. Patient up later and c/o leg pain for which Naproxen was effective. Plan: Patient has had eight ER/Hospital visits in 2021. Pt is not med compliant or has a difficult time getting her medications after she is discharged. Pts living situation is dysfunctional. Pt needs to be stabilized on medication and a safe discharge plan devised.
[2022-04-24] MEDS: naproxen 500mg tablet PO PRN ×2 (06:48→20:07)
[2022-04-24] MEDS: amLODIPine 5mg tablet PO SCH (07:52)
[2022-04-24] MEDS: pantoprazole 40mg Tablet.DR PO SCH (07:52)
[2022-04-24] MEDS: oxcarbazepine 150mg tablet PO SCH ×2 (07:53→20:06)
[2022-04-24 08:00] VITALS: BP 129/81
--- NOTE | 2022-04-24 09:06 | NUR ---
CM-Continuity of Care Prersenting Issues: Pt's 5250 Hearing is scheduled for today, pt plans to contest the 5250. However, care team expressed concerns that pt will be able to articulate a plan to meet all her basic needs for survival while pt is not able to provide details about the process of accessing food, clothing & prison w/o third democrat assistance. This is pt's 3rd [facility] admission since 03/10/22. Pt's always contested her 5250 and been successful in getting d/c from the [address] However, she is back in the ER in less than 2 weeks following each discharges. Interventions: Clinician reviewed chart to provide pt's history of ER & [facility] admissions due to her mental illness; clinician reviewed notes spanning October 2021 to current date. 11/11/21: Pt self presented @ [facility] ER- confused & disoriented, reports "I'm losing my mind". Was d/c from ER when she calmed down. 11/20/21: Pt self presented at ER, again reports, "I'm crazy" exhibited mood irritability, agitated bxs, threatening towards staff. D/c from ER once calmed 11/29/21: Pt called EMS and requested transport to [facility] ER, asking for MH meds, confused & disoriented 02/25/22: LE brought pt to [facility] ER, pt was combative towards LE and they 5150 her and brought her to ER. Pt was delusional & paranoid. D/C from ER 03/09/22: Pt brought to ER by [facility] crisis team, 5150 due to psychoses 03/10/22: CB admission; was able to get off 5250 via contesting the Hold; d/c 03/1503/16/22: Brought into ER by LE; confused and asking for dosing of her meds. D/C from ER 03/18/22: Self presented at [facility] ER, confused & delusional again requesting for her meds 03/20/22: Pt again presented at [facility] ER, delusional & paranoid 03/21/22: CB admission; Contested 5250 and was able to get released on 04/04/22 04/15/22: ER presentation 04/16/22: [facility] admission In addition to the above ER dates, pt also utilizes [facility] ER. While it is true that pt has a safe home, access to food via an EBT card, third democrat assistance via son & dtr in-law. However, pt is not able to keep her home w/o her son making rent payments as pt is not able to manage her own money as of this admission-pt has lost her [employer] subsidy it is unclear if her son will be able to pay the difference in rent to keep her home for her. While pt has an EBT card, she is not able to actually buy & prepare her meals w/o third democrat assistance and she refuses to consume the food that her son prepares for her. Pt also is not able to self administer her own medications but refuses to take meds when her son/dtr in-law prompts her to do so. [facility] had submitted request for a [facility]atorship eval however, [facility] has declined to provide one at this time, they are opting to provide a full psychological evaluation, date of eval is pending Clinical Care consultation at [facility] on 04/26/22. Status of [id number]: Pt receives 13hrs/week of IHSS services, her son & dtr in-law provides this services for her. Pt had gone thru 2 prior IHSS workers- both left and pt and family were unable to hire anyone else as no other providers were willing to work w/pt. Pt believes that her son has POA but this too is unclear at this time; he does pay her bills. Son has reported that pt is very resistant to his & dtr in-law's efforts to assist her in the home. It is very likely that if discharged, pt will return to a local ER w/in 2 weeks of discharge. Plan: Clinician will continue to monitor & engage [facility] in aftercare plan. Lakesha Vega LCSW Addendum: 04/24/22 at 0940 by Lakesha LARA Amended: Links added.
--- NOTE | 2022-04-24 10:26 | NUR ---
Pt. attended group today. Todays group was about the difference between Growth Mindset vs. Fixed Mindset. We learned about the differences and then discussed what aspect of developing a growth mindset they wanted to work on. Pts could work on a vision page to integrate some of the lessons learned from today's group. Pt. engaged in group in terms of sharing her thoughts quite consistently. Her thoughts tended to be off topic quite and circumstantial. She would often have to be redirected as she would blurt out her thoughts while others were talking, she was amenable to redirection but it did not do anything to change her behavior. Pt. appeared to struggle to remember things ( struggled to remember my name and told me it actually was something different) and would often say inappropriate things to people. An example of this was after another peer shared about her divorce process Pt stated to that peer, "Don't worry he'll bring you harper, he isn't going to divorce you". This visibly irritated her peer but Pt. had no understanding of how her words affected her peer or that they were inappropriate to what her peer had shared. She appears to live in her own reality and attempts to get others to agree with what she believes is true and will argue that she is correct even when discussing the other's personal information. Her overall demeanor is pleasant and compliant. She is alert and oriented to where she is and what day it is. She did not engage in the Vision Page activity. Claudia Hernandez LCSW
--- NOTE | 2022-04-24 15:53 | NUR ---
5[address]
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
[2022-04-24] MEDS: lurasidone 20mg tablet PO SCH (17:49)
[2022-04-24] MEDS: traZODone 50mg tablet PO SCH (20:06)
[2022-04-24] MEDS: levetiracetam 250mg tablet PO SCH (20:06)
[2022-04-24] MEDS: atorvastatin 20mg tablet PO SCH (20:07)
[2022-04-24] MEDS: quetiapine 100mg tablet PO SCH (20:07)
[2022-04-24 20:22] VITALS: BP 142/98
--- NOTE | 2022-04-24 23:50 | NUR ---
Nursing Progress Note: Problem: Pt admitted 04/16 to [place] for [facility] on 5150 for GD. Dari is unable to provide food, clothing and assisted despite family support. She is confused, disorganized and exhibits delusional beliefs. She has history of Bipolar. Interventions: Maintained a safe and supportive environment, administered medication per orders with no adverse side effects, provided clear and simple instructions, provided active listening and positive encouragement, encouraged participation on the unit and with ADLs Response: Patient was in the group room coloring. Asked her how she was doing, and she replies with name rank and serial number. She named every stat she could think of about herself. Then she refers to her papers that have staff and clients names. It appears to be her naughty or nice list. Patient lists what she knows about them; what they do or don't do for her, whether she likes them or not, and their indiscretions. One has the name of the person she believes takes her papers off the wall. As she talks, she goes off on every tangent there is, in a disorganized way. Patient stayed there all night being intrusive with others, but they just walk away. She denies MH symptoms, but verbalizes delusional content. Patient was compliant with HS medications before going to bed. Plan: Patient has had eight ER/Hospital visits in 2021. Pt is not med compliant or has a difficult time getting her medications after she is discharged. Pts living situation is dysfunctional. Pt needs to be stabilized on medication and a safe discharge plan devised. Patient's 5250 upheld.
[2022-04-25] MEDS: naproxen 500mg tablet PO PRN ×2 (04:45→21:32)
[2022-04-25] MEDS: oxcarbazepine 150mg tablet PO SCH ×2 (07:35→20:09)
[2022-04-25] MEDS: pantoprazole 40mg Tablet.DR PO SCH (07:35)
[2022-04-25] MEDS: amLODIPine 5mg tablet PO SCH (07:37)
[2022-04-25 07:38] VITALS: BP 137/80
--- NOTE | 2022-04-25 09:24 | NUR ---
Pt. attended group today. Today we discussed Wellness and utilized the Self Care Wheel to help Patients determine the wellness/self-care activities they enjoy in each domain presented in the wheel. The four domains are the physical, spiritual, emotional and physical. We then did an art expression call Path to Wellness. Pt. was quiet in the group today coloring her pages while listening to this Embedded Engineer and her peers. She did not engage in the art expression reporting that she wanted to color. She seemed to have difficulty verbalizing what her self care activities were, her thoughts tend to be tangential. Her demeanor is pleasant and compliant. Claudia Hernandez, TRAFFIC OR SYSTEM DISPATCHER
--- NOTE | 2022-04-25 16:13 | NUR ---
Nursing Progress Note: Dari Problem: Patient is unable to provide food, clothing and nursing home despite family support. She is confused, disorganized and exhibits delusional beliefs. She has history of Bipolar. Pt. presents disorganized, easily agitated if things dont go her way. She minimizes her MH needs. Intervention: Army Manager continues to provide pt. with a safe and therapeutic environment, clear communication, active listening and positive encouragement. Pt. encouraged to participate on unit and in group therapy, and 1:1 assessment provided. Medication administration. Response: Pt. denies SI, HI, A/VH and attempted to then question music writer d/t her agitation during assessment. Pt. is has flat affect and is disorganized often bouncing around topics during conversation. Pt. was med compliant and ate all meals in the dining room with cohorts. She is often observed OOB and socializing with others while coloring. Pt. attended group today. Plan: Patient continues to require crisis interruption and stabilization with medication management and monitoring in a safe and therapeutic environment.
[2022-04-25] MEDS: lurasidone 20mg tablet PO SCH (17:58)
[2022-04-25 19:43] VITALS: BP 131/86
[2022-04-25] MEDS: atorvastatin 20mg tablet PO SCH (20:08)
[2022-04-25] MEDS: levetiracetam 250mg tablet PO SCH (20:09)
[2022-04-25] MEDS: quetiapine 100mg tablet PO SCH (20:09)
[2022-04-25] MEDS: traZODone 50mg tablet PO SCH (20:10)
--- NOTE | 2022-04-26 01:48 | NUR ---
Nursing Progress Note: Problem: Patient is unable to provide food, clothing and senior care despite family support. She is confused, disorganized and exhibits delusional beliefs. She has history of Bipolar. Pt. presents disorganized, easily agitated if things dont go her way. She minimizes her MH needs. Intervention: Hospice Volunteer continues to provide pt. with a safe and therapeutic environment, clear communication, active listening and positive encouragement. 1:1 assessment provided. Medication administration. Response: Pt is coloring in community room at shift change and is pleasant on assessment. She is observed interacting well with others, making good eye contact and laughing. She denies SI/HI/AH/VH at this time. She is insistent on coloring and appears content doing so. Plan: Patient continues to require crisis interruption and stabilization with medication management and monitoring in a safe and therapeutic environment
[2022-04-26] MEDS: naproxen 500mg tablet PO PRN (05:07)
[2022-04-26] MEDS: pantoprazole 40mg Tablet.DR PO SCH (07:41)
[2022-04-26] MEDS: oxcarbazepine 150mg tablet PO SCH ×2 (07:42→20:32)
[2022-04-26] MEDS: amLODIPine 5mg tablet PO SCH (07:42)
[2022-04-26 08:00] VITALS: BP 121/71
--- NOTE | 2022-04-26 15:56 | NUR ---
Nursing Progress Note Problem: Patient is unable to provide food, clothing and halfway despite family support. She is confused, disorganized and exhibits delusional beliefs. She has history of Bipolar. Pt. presents labile today, becoming tearful. She minimizes her MH needs. Intervention: Professional Sports Scout continues to provide pt. with a safe and therapeutic environment, clear communication, active listening and positive encouragement. Pt. encouraged to participate on unit and in group therapy, and 1:1 assessment provided. Medication administration. Response: Received Pt in bed sleeping w/o distress. Pt woke and was cooperative with vitals, AM assessments and ate meals well. Pt showered today and attended groups. Pt. denies SI, HI, A/VH and was social with peers and spent most of the day in community room. Pt spent time coloring and watching TV and talking with other Pts. Pt labile at times, becoming tearful during AM group. Pt recovered quickly and returned to socializing. Plan: Patient continues to require crisis interruption and stabilization with medication management and monitoring in a safe and therapeutic environment.
[2022-04-26] MEDS: lurasidone 20mg tablet PO SCH (18:01)
[2022-04-26] MEDS: acetaminophen 325mg tablet PO PRN (19:12)
[2022-04-26 20:00] VITALS: BP 125/78
[2022-04-26] MEDS: levetiracetam 250mg tablet PO SCH (20:28)
[2022-04-26] MEDS: traZODone 50mg tablet PO SCH (20:29)
[2022-04-26] MEDS: atorvastatin 20mg tablet PO SCH (20:30)
[2022-04-26] MEDS: quetiapine 100mg tablet PO SCH (20:31)
[2022-04-26 21:37] VITALS: BP 125/78
--- NOTE | 2022-04-26 23:23 | NUR ---
Nursing Progress Note: Problem: Patient is unable to provide food, clothing and halfway despite family support. She is confused, disorganized and exhibits delusional beliefs. She has history of Bipolar. Pt. presents disorganized, easily agitated if things dont go her way. She minimizes her MH needs. Intervention: Plain Goods Hemmer continues to provide pt. with a safe and therapeutic environment, clear communication, active listening and positive encouragement. 1:1 assessment provided. Medication administration. Response: Pt is insistent on someone buying her elmers glue and fake harper from [employer]. Pt will not take no for an answer and keeps saying "but it's the generic"RN reminds pt we cant just go buying her things, she still does not understand. She is cooperative with 1:1 when asked how her day was she responds, "well, I am still to the same fucking asshole who breaks my shit." She denies SI/HI/AH/VH at this time. She significantly calms down after HS meds are taken. Plan: Patient continues to require crisis interruption and stabilization with medication management and monitoring in a safe and therapeutic environment
[2022-04-27] MEDS: pantoprazole 40mg Tablet.DR PO SCH (07:56)
[2022-04-27] MEDS: oxcarbazepine 150mg tablet PO SCH ×2 (07:56→20:11)
[2022-04-27] MEDS: amLODIPine 5mg tablet PO SCH (08:00)
[2022-04-27] MEDS: naproxen 500mg tablet PO PRN (12:09)
--- NOTE | 2022-04-27 15:12 | NUR ---
Nursing Progress Note Problem: Patient is unable to provide food, clothing and penitentiary despite family support. She is confused, disorganized and exhibits delusional beliefs. She has history of Bipolar. Pt. presents labile today, becoming tearful. She minimizes her MH needs. Intervention: Staff to provide pt. with a safe and therapeutic environment, clear communication, active listening and positive encouragement. Pt. encouraged to participate on unit and in group therapy, and 1:1 assessment provided. Medication administration. Response: Patient was asleep at change of shift and up for breakfast. Patient took medication but refused vital signs. Patient has a good appetite. Patient attended group today. Patient denies SI, HI, A/VH. Patient is social with peers, watches T.V. or colors in the Community Room. Patient was agitated as peers became agitated about medication. Patient c/o at 1435 that she hadn't received her morning medication (as were her two older women peers). Patient assured she received her medication this morning. Plan: Patient continues to require crisis interruption and stabilization with medication management and monitoring in a safe and therapeutic environment.
[2022-04-27] MEDS: acetaminophen 325mg tablet PO PRN (16:01)
[2022-04-27] MEDS: lurasidone 20mg tablet PO SCH (18:15)
[2022-04-27 19:43] VITALS: BP 125/81
[2022-04-27] MEDS: traZODone 50mg tablet PO SCH (20:11)
[2022-04-27] MEDS: levetiracetam 250mg tablet PO SCH (20:11)
[2022-04-27] MEDS: quetiapine 100mg tablet PO SCH (20:12)
[2022-04-27] MEDS: atorvastatin 20mg tablet PO SCH (20:12)
--- NOTE | 2022-04-28 00:01 | NUR ---
Nursing Progress Note: Problem: Patient is unable to provide food, clothing and penitentiary despite family support. She is confused, disorganized and exhibits delusional beliefs. She has history of Bipolar. Pt. presents disorganized, easily agitated if things dont go her way. She minimizes her MH needs. Intervention: Services Host continues to provide pt. with a safe and therapeutic environment, clear communication, active listening and positive encouragement. 1:1 assessment provided. Medication administration. Response: Patient in community room at shift change and upset stating , "I've been here for ten years!" pt repeated this several times. Pt sat in community room with cohorts most of the evening. Pt ate snack with cohorts and chatted. Patient asked for new sheets and blankets exclaiming that her old set was dirty. New sheets and blanket were provided. The pt took her evening meds w/o complications then went to sleep. Plan: Patient continues to require crisis interruption and stabilization with medication management and monitoring in a safe and therapeutic environment
[2022-04-28] MEDS: acetaminophen 325mg tablet PO PRN ×2 (02:43→16:42)
[2022-04-28] MEDS: amLODIPine 5mg tablet PO SCH (07:34)
[2022-04-28] MEDS: pantoprazole 40mg Tablet.DR PO SCH (07:34)
[2022-04-28] MEDS: oxcarbazepine 150mg tablet PO SCH ×2 (07:34→20:02)
[2022-04-28 08:27] VITALS: BP 129/80
--- NOTE | 2022-04-28 11:56 | NUR ---
Reassessment: Pt continues eating well, documented with mostly 75-100% PO intake meeting estimated nutrient needs. [facility] 04/27. No nutrition intervention implemented at this time. Will continue to follow. Recommendations: 1) Continue regular diet 2) Bowel care PRN 3) Weekly scaled weights Addendum: 04/28/22 at [address] Amended: Links added.
--- NOTE | 2022-04-28 16:37 | NUR ---
Nursing Progress Note Problem: Patient is unable to provide food, clothing and mcfp despite family support. She is confused, disorganized and exhibits delusional beliefs. She has history of Bipolar. Pt. presents labile today, becoming tearful. She minimizes her MH needs. Intervention: Staff to provide pt. with a safe and therapeutic environment, clear communication, active listening and positive encouragement. Pt. encouraged to participate on unit and in group therapy, and 1:1 assessment provided. Medication administration. Response: Pt was awake at change of shift. Pt approaches nurse paranoid stating "I have to give you this pencil before I get In trouble." Explained to pt she may use the short pencil but pt insists she will get in trouble and is always in trouble. Pt comes back few minutes later for the pencil and spends most of AM in group room drawing and coloring. Pt has son visiting and has pleasant visit. Pt spends most of day in group room doing activities. Plan: Patient continues to require crisis interruption and stabilization with medication management and monitoring in a safe and therapeutic environment.
[2022-04-28] MEDS: lurasidone 20mg tablet PO SCH (17:21)
[2022-04-28 19:18] VITALS: BP 148/88
[2022-04-28] MEDS: quetiapine 100mg tablet PO SCH (20:02)
[2022-04-28] MEDS: levetiracetam 250mg tablet PO SCH (20:02)
[2022-04-28] MEDS: atorvastatin 20mg tablet PO SCH (20:02)
[2022-04-28] MEDS: traZODone 50mg tablet PO SCH (20:02)
[2022-04-28] MEDS: naproxen 500mg tablet PO PRN (20:03)
--- NOTE | 2022-04-29 05:41 | NUR ---
Nursing Progress Note: Problem: Patient is unable to provide food, clothing and halfway despite family support. She is confused, disorganized and exhibits delusional beliefs. She has history of Bipolar. Pt. presents disorganized, easily agitated if things dont go her way. She minimizes her MH needs. Intervention: Assembler Hydraulic Backhoe continues to provide pt. with a safe and therapeutic environment, clear communication, active listening and positive encouragement. 1:1 assessment provided. Medication administration. Response: Patient in community room at shift change and is slightly agitated when approached. I introduced myself to as her "nurse for the night" she said "No, you're not, I'm leaving tonight" to which I said, "okay". I asked her how she was doing, she told me that her ankle was hurting and swollen. She stayed in community room for about another hour while coloring and then resorted to room where she continued to color. The patient took her PM medications w/o complications, Naproxen was given for her ankle. She did rant about rules and not being able to touch certain things and if done will "get in trouble". She mentioned that president Fadumo's dog was kicked out of the [employer] because he bit someone. Patient rested/slept in bed for remainder of night. Plan: Patient continues to require crisis interruption and stabilization with medication management and monitoring in a safe and therapeutic environment
[2022-04-29] MEDS: pantoprazole 40mg Tablet.DR PO SCH (07:45)
[2022-04-29] MEDS: amLODIPine 5mg tablet PO SCH (07:46)
[2022-04-29] MEDS: oxcarbazepine 150mg tablet PO SCH (07:46)
[2022-04-29 08:00] VITALS: BP 111/60
[2022-04-29] MEDS: naproxen 500mg tablet PO PRN (14:00)
--- NOTE | 2022-04-29 14:58 | NUR ---
Nursing Progress Note: Dari Problem: Patient is unable to provide food, clothing and fci despite family support. She is confused, disorganized and exhibits delusional beliefs. She has history of Bipolar. Intervention: Medication given as ordered. Provided with a safe and therapeutic environment, clear communication, active listening and positive encouragement. Response: Patient is resting quietly in bed at the start of the shift. She is pleasant and cooperative. Medication administered as ordered. Patient is often intrusive but is redirected. She spends much of the day coloring in the community room. Patient makes some delusional statements states to another patient, Youre in trouble again. When staff walked into the room. Patient does not understand why she is here on the unit. Denies any SI/ HI or hallucinations. Plan: Patient continues to require crisis interruption and stabilization with medication management and monitoring in a safe and therapeutic environment.
[2022-04-29] MEDS: lurasidone 20mg tablet PO SCH (16:52)
[2022-04-29 19:39] VITALS: BP 137/86
[2022-04-29] MEDS: traZODone 50mg tablet PO SCH (20:14)
[2022-04-29] MEDS: atorvastatin 20mg tablet PO SCH (20:15)
[2022-04-29] MEDS: quetiapine 100mg tablet PO SCH (20:15)
[2022-04-29] MEDS: levetiracetam 250mg tablet PO SCH (20:15)
--- NOTE | 2022-04-30 00:03 | NUR ---
Nursing Progress Note: Dari Problem: Patient is unable to provide food, clothing and fdc despite family support. She is confused, disorganized and exhibits delusional beliefs. She has history of Bipolar. Intervention: Medication given as ordered. Provided with a safe and therapeutic environment, clear communication, active listening and positive encouragement. Response: Pt coloring in group room at start of shift. Conversation disorganized and tangential. Pt described one of her pictures and started saying her son had colored it. She seemed angry about something her son had done but it wasn't possible to follow her conversation. Her mood is labile, at one point she started crying (unclear why) then suddenly stopped. She was cooperative with care, took all meds, denies MH s/s. Plan: Patient continues to require crisis interruption and stabilization with medication management and monitoring in a safe and therapeutic environment.
[2022-04-30 08:00] VITALS: BP 119/75
[2022-04-30] MEDS: amLODIPine 5mg tablet PO SCH (08:10)
[2022-04-30] MEDS: pantoprazole 40mg Tablet.DR PO SCH (08:10)
[2022-04-30] MEDS: naproxen 500mg tablet PO PRN ×2 (14:08→23:55)
--- NOTE | 2022-04-30 17:58 | NUR ---
Nursing Progress Note: Problem: Pt admitted 04/16/22 to [facility] on 5150 for GD. Dari is unable to provide food, clothing and snf despite family support. She is confused, disorganized and exhibits delusional beliefs. She has history of Bipolar. Interventions: Patient woke up at 0740 and could be overheard crying loudly while laying on her bed in her room. Went to address patients concerns, and patient continued crying loudly stating Im not going to eat breakfast because I cant have my dog here, and my daughter in law is so fat and she wears tight clothes, and I want to eat my breakfast in my room and Dr. Barber told me that I cannot eat in my room and .. Patient was verbally disorganized, confused to where she was and what the current events are. Attempted to re-orient the patient and just sat quietly with her until she calmed down. Rest of day spent coloring pictures. Administered Naprosyn x1 for c/o Sciatica Pain. Response: After difficult awakening this morning and excessive crying patient was able to calm and relax and went to the Community Room for breakfast by 0815 and sat quietly by herself to eat. Took medications without hesitation. Weight +2.4 lbs. in the past week. Patient aggressively starts yelling out at the very beginning of tray delivery at each meal to all peers, asking for other patients food, drinks or condiments. Patient has consistently been advised to allow patients to eat their food quietly without her intrusive behavior. Will continue to monitor food/fluids. Plan: Patient continues to require a safe and supportive environment and medication adjustments. Patient continues to remain on a 5250 for GD.
[2022-04-30] MEDS: lurasidone 20mg tablet PO SCH ×2 (18:11→19:59)
[2022-04-30] MEDS: levetiracetam 250mg tablet PO SCH (20:00)
[2022-04-30] MEDS: traZODone 50mg tablet PO SCH (20:00)
[2022-04-30] MEDS: quetiapine 100mg tablet PO SCH (20:00)
[2022-04-30] MEDS: atorvastatin 20mg tablet PO SCH (20:00)
[2022-05-01] MEDS ORDERED: quetiapine 100mg tablet PO ONE
--- NOTE | 2022-05-01 | NUR ---
OCP contacted as pt is not sleeping still, she presents as very labile, hypomanic, order for Seroquel 100 mg x 1 now given.
--- NOTE | 2022-05-01 02:49 | NUR ---
Nursing Progress Note: Problem: Patient is unable to provide food, clothing and mcfp despite family support. She is confused, disorganized and exhibits delusional beliefs. She has history of Bipolar. Pt. presents disorganized, easily agitated if things dont go her way. She minimizes her MH needs. Intervention: Healthcare Consulting Manager continues to provide pt. with a safe and therapeutic environment, clear communication, active listening and positive encouragement. 1:1 assessment provided. Medication administration. Response: Patient labile in room coloring at shift change. Patient has disorganized speech and changes topics often making the pt hard to understand.The pt refused to have VS done yelling at the tech, "get out! get out of here!" while crying. The pt was getting irritated at other pts who walked by or made noise calling them names or making offensive gestures. The patient refused her dinner tray and a sandwich but ate oranges and string cheese. The patient took evening med w/o complications. Patient given a 250mg naproxen for generalized pain. The patient isolated to her room talking about many different things to whom would listen. The pt was seen writing a paper 15 pages long after 2200 in her room. The pt was offered a Seroquel 100mg at midnight to help with sleep. The pt eventually fell asleep next to her pens and writing pages. Plan: Patient continues to require crisis interruption and stabilization with medication management and monitoring in a safe and therapeutic environment
[2022-05-01 08:00] VITALS: BP 134/76
[2022-05-01] MEDS: pantoprazole 40mg Tablet.DR PO SCH (08:02)
[2022-05-01] MEDS: amLODIPine 5mg tablet PO SCH (08:04)
[2022-05-01] MEDS: oxcarbazepine 150mg tablet PO SCH ×2 (08:50→20:06)
[2022-05-01] MEDS: naproxen 500mg tablet PO PRN (08:57)
--- NOTE | 2022-05-01 16:53 | NUR ---
Nursing Progress Note: Problem: Pt admitted 04/16/22 to [facility] on 5150 for GD. Dari is unable to provide food, clothing and halfway despite family support. She is confused, disorganized and exhibits delusional beliefs. She has history of Bipolar. Interventions: Received patient while she was up in the Community Room at 0630 sitting at a table coloring pictures. Patient greeted this engineering technical writer by name and was talkative and took medications without hesitation. Patient continued to participate in coloring and visited with her son at 1000. Patient requested her bed change be done but refused to take a shower although she was encouraged to do so. Dr. Barber restarted patients Trileptal 150mg po bid at 0800 this morning, changed Latuda from 80mg po at 1800 to 40 mg po at 1800, and Seroquel increased to 150 mg po bedtime. Response: At lunchtime, patient continued behavior of asking other peers for food items and condiments from others trays to add to her tray. Patient again was informed by a staff member not to make changes to the diet that she receives. Patient became angry and went to her room and chose not to return to the Community Room to eat her lunch. This behavior has been a daily problem that we have been working on closely with the patient to resolve. Patient has been asked over and over, in the event she needs anything while in the Community Room for meals, she must ask her Nurse about the issue so they can make a decision. Plan: Patient continues to require a safe and supportive environment and medication adjustments. Patient continues to remain on a 5250 for GD. We would continue to ask day shift staff to monitor patients behavior of asking others for salt, pepper, butter, different juices & milks, as well as other food, including desserts, and when this occurs redirect the patient back to their nurse.
[2022-05-01] MEDS: lurasidone 20mg tablet PO SCH (17:54)
[2022-05-01 20:00] VITALS: BP 129/83
[2022-05-01] MEDS: levetiracetam 250mg tablet PO SCH (20:07)
[2022-05-01] MEDS: atorvastatin 20mg tablet PO SCH (20:07)
[2022-05-01] MEDS: traZODone 50mg tablet PO SCH (20:07)
[2022-05-01] MEDS: quetiapine 100mg tablet PO SCH (20:07)
--- NOTE | 2022-05-02 00:36 | NUR ---
Nursing Progress Note: Dari Problem: Pt admitted 04/16/22 to [facility] on 5150 for GD. Dari is unable to provide food, clothing and fpc despite family support. She is confused, disorganized and exhibits delusional beliefs. She has history of Bipolar. Intervention: Clinical Lab Clerk continues to provide pt. with a safe and therapeutic environment, clear communication, active listening and positive encouragement. 1:1 assessment provided. Response: Received pt in her room sitting at her bed writing with a marker. Greeted pt and the pt stated this is what I do all day long, if you need me I will be here writing. Pt was cooperative with care. Pt up for snacks and requested a knife several times to spread her egan on her sandwich. The pt was given a spoon instead. Pt took all HS medications without issue and had no complaints. Pt to bed shortly after med pass. Plan: Patient continues to require a safe and supportive environment and medication adjustments. Patient continues to remain on a 5250 for GD.
[2022-05-02] MEDS ORDERED: LORazepam 1 MG tablet PO ONE (06:45)
[2022-05-02 07:26] VITALS: BP 153/93
[2022-05-02] MEDS: oxcarbazepine 150mg tablet PO SCH ×2 (07:49→20:20)
[2022-05-02] MEDS: pantoprazole 40mg Tablet.DR PO SCH (07:49)
[2022-05-02] MEDS: amLODIPine 5mg tablet PO SCH (07:50)
--- NOTE | 2022-05-02 10:10 | NUR ---
CM-DCP Presenting Issues: Pt's 5250 will tomorrow, p's made very little progress and appears to have not benefitted from current medication regiment. Interventions: Clinician had t/c w/pt's son and engaged him in dcp activities. Per t/c, pt's son reports that pt still has a home to return to however after April, the son will not be able to provide financial assistance to maintain safe fdc/housing for pt. Son continues to express concerns that pt will again refuse to allow him to provide support/care for her, son agreed to resume [facility] support for pt when she returns home. Clinician notified [facility] of potential dispo-pt d/c-ing home tomorrow. Plan: Clinician will continue to monitor and engage family & [facility] in dcp activities as appropriate. Lakesha Vega LCSW Addendum: 05/02/22 at 1017 by Lakesha Vega SS Amended: Links added.
--- NOTE | 2022-05-02 15:46 | NUR ---
Nursing Progress Note: Dari Problem: Patient is unable to provide food, clothing and usp despite family support. She is confused, disorganized and exhibits delusional beliefs. She has history of Bipolar. Today pt. presents as extremely paranoid, agitated and disorganized. Intervention: Makeup Artistry Instructor continues to provide pt. with a safe and therapeutic environment, clear communication, active listening and positive encouragement. Pt. encouraged to participate on unit and in group therapy, and 1:1 assessment provided. Medication administration with one time PO Ativan. Response: Pt. denies SI, HI, A/H, but endorses VH stating I see a chicken in the shell right her in my hand, but my neighbor smokes pot, I found a pipe Pt. curled up into position in the bed and was tearful reporting Im not safe here, he was going through my things last night Provider notified; one time Ativan received. Later pt. woke and took a shower her conversation remains disorganized with flights of topics, but with reduced paranoia. She was med compliant and ate all meals in the dining room with cohorts except for breakfast which she refused. Pt. spent some time OOB sitting in the community room coloring, but required redirection as she can become intrusive with others. Plan: Patient continues to require crisis interruption and stabilization with medication management and monitoring in a safe and therapeutic environment.
[2022-05-02] MEDS: lurasidone 20mg tablet PO SCH (17:25)
[2022-05-02 19:55] VITALS: BP 138/81
[2022-05-02] MEDS: traZODone 50mg tablet PO SCH (20:20)
[2022-05-02] MEDS: quetiapine 100mg tablet PO SCH (20:20)
[2022-05-02] MEDS: levetiracetam 250mg tablet PO SCH (20:20)
[2022-05-02] MEDS: atorvastatin 20mg tablet PO SCH (20:20)
--- NOTE | 2022-05-02 23:49 | NUR ---
Nursing Progress Note: Dari Problem: Patient is unable to provide food, clothing and long term despite family support. She is confused, disorganized and exhibits delusional beliefs. She has history of Bipolar. Today pt. presents as extremely paranoid, agitated and disorganized. Intervention: Statistical Machine Mechanic continues to provide pt. with a safe and therapeutic environment, clear communication, active listening and positive encouragement. Pt. encouraged to participate on unit and in group therapy, and 1:1 assessment provided. Medication administration with one time PO Ativan. Response: Pt. in community room at change of shift coloring. Pt starts making demands of needing butter and coffee creamer multiple times to this video game script writer. Pt was easily directed to her drawings and stated that she had other patient coloring today. She stated that this patient knows Trina Mohan and Jose Archer and that they were . Pt sat in the community room for the evening, had snacks and took all HS medications without issue. Pt to bed without any needs/complaints. Plan: Patient continues to require crisis interruption and stabilization with medication management and monitoring in a safe and therapeutic environment.
[2022-05-03] MEDS: pantoprazole 40mg Tablet.DR PO SCH (07:23)
[2022-05-03] MEDS: oxcarbazepine 150mg tablet PO SCH ×2 (07:23→20:26)
[2022-05-03] MEDS: amLODIPine 5mg tablet PO SCH (07:23)
[2022-05-03 07:39] VITALS: BP 109/55
--- NOTE | 2022-05-03 16:25 | NUR ---
Nursing Progress Note: Dari Problem: Patient is unable to provide food, clothing and nursing home despite family support. She is confused, disorganized and exhibits delusional beliefs. She has history of Bipolar. Today pt. presents as disorganized with a few paranoid statements. Intervention: Clinical Administrator continues to provide pt. with a safe and therapeutic environment, clear communication, active listening and positive encouragement. Pt. encouraged to participate on unit and in group therapy, and 1:1 assessment provided with medication administration. Response: Pt. denies SI, HI, A/VH, she presents as paranoid at times. Her DC plans are unknown and reports my son gave my dog away.Pt. has been out of her room most of the shift coloring and socializing with robert, and has had limited intrusive episodes today. She is med compliant and ate all meals in the dining room with cohorts. She presents as disorganized but redirect able, currently wearing green unit scrubs and her hair is well groomed. Plan: Patient continues to require crisis interruption and stabilization with medication management and monitoring in a safe and therapeutic environment.
[2022-05-03] MEDS: lurasidone 20mg tablet PO SCH ×2 (17:37→18:00)
[2022-05-03 20:00] VITALS: BP 159/80
[2022-05-03] MEDS: olanzapine 10mg tablet PO SCH (20:26)
[2022-05-03] MEDS: atorvastatin 20mg tablet PO SCH (20:27)
[2022-05-03] MEDS: levetiracetam 250mg tablet PO SCH (20:27)
[2022-05-03] MEDS: traZODone 50mg tablet PO SCH (20:27)
--- NOTE | 2022-05-04 01:03 | NUR ---
Nursing Progress Note: Dari Problem: Patient is unable to provide food, clothing and fdc despite family support. She is confused, disorganized and exhibits delusional beliefs. She has history of Bipolar. Today pt. presents as disorganized with a few paranoid statements. Intervention: Maintenance Electrician continues to provide pt. with a safe and therapeutic environment, clear communication, active listening and positive encouragement. Pt. encouraged to participate on unit and in group therapy, and 1:1 assessment provided with medication administration. Response: Pt in her room brushing and using mouth wash stating I am going to lay down soon. 1:1 assessment done later in the shift. Pt. denies SI, HI, A/VH, she presents as paranoid at times. She states they gave me pills last night that made me have nightmares. Pt also talked about her son and that he is always on vacation. She also misses her dog. Pt up for snacks, took all mediations and went to bed. Plan: Patient continues to require crisis interruption and stabilization with medication management and monitoring in a safe and therapeutic environment.
[2022-05-04] MEDS: oxcarbazepine 150mg tablet PO SCH ×2 (07:38→20:18)
[2022-05-04] MEDS: pantoprazole 40mg Tablet.DR PO SCH (07:39)
[2022-05-04] MEDS: amLODIPine 5mg tablet PO SCH (07:39)
[2022-05-04 07:54] VITALS: BP 138/72
--- NOTE | 2022-05-04 16:16 | NUR ---
Nursing Progress Note: Dari Problem: Patient is unable to provide food, clothing and skilled nursing despite family support. She is confused, disorganized and exhibits delusional beliefs. She has history of Bipolar. Today pt. presents with paranoid statements regarding her belongings being stolen. Intervention: Coremaker Helper continues to provide pt. with a safe and therapeutic environment, clear communication, active listening and positive encouragement. Pt. encouraged to participate on unit and in group therapy, and 1:1 assessment provided with medication administration. Response: Pt. denies SI, HI, A/VH, she presents with paranoia stating I know there stealing my things in the night, and messing with my medications Today pt. reports her DC plans are to go home, take care of my animals, and love my familys. Pt. is wearing unit scrubs and her hair is combed, she spent most of the shift in the community room coloring and socializing with cohorts. Plan: Patient continues to require crisis interruption and stabilization with medication management and monitoring in a safe and therapeutic environment.
[2022-05-04] MEDS: lurasidone 20mg tablet PO SCH (17:18)
[2022-05-04 19:28] VITALS: BP 139/79
[2022-05-04] MEDS: atorvastatin 20mg tablet PO SCH (20:17)
[2022-05-04] MEDS: olanzapine 10mg tablet PO SCH (20:17)
[2022-05-04] MEDS: traZODone 50mg tablet PO SCH (20:18)
[2022-05-04] MEDS: levetiracetam 250mg tablet PO SCH (20:18)
--- NOTE | 2022-05-05 01:19 | NUR ---
Nursing Progress Note: Dari Problem: Patient is unable to provide food, clothing and snf despite family support. She is confused, disorganized and exhibits delusional beliefs. She has history of Bipolar. Today pt. presents with paranoid statements regarding her belongings being stolen. Intervention: Senior Resident Care Director continues to provide pt. with a safe and therapeutic environment, clear communication, active listening and positive encouragement. Pt. encouraged to participate on unit and in group therapy, and 1:1 assessment provided with medication administration. Response: Pt. denies SI, HI, A/VH, she presents to be in a good mood, smiling and showing this teletypewriter operator her art work from today. She states they call me the vampire with my fingernails referring to her peers. Pt stayed in community room watching TV with peers through snacks and med pass. No complaints or needs this shift. Pt came up to the nurses station to say abdullahi. Plan: Patient continues to require crisis interruption and stabilization with medication management and monitoring in a safe and therapeutic environment.
[2022-05-05] MEDS: pantoprazole 40mg Tablet.DR PO SCH (07:41)
[2022-05-05] MEDS: amLODIPine 5mg tablet PO SCH (07:41)
[2022-05-05] MEDS: oxcarbazepine 150mg tablet PO SCH ×2 (07:41→20:38)
[2022-05-05 07:43] VITALS: BP 108/57
--- NOTE | 2022-05-05 12:23 | NUR ---
Nursing Progress Note: Problem : Patient is unable to provide food, clothing and assisted despite family support. She is confused, disorganized and exhibits delusional beliefs. She has history of Bipolar. Pt. continues to make intermittent paranoid delusional statements. Interventions : Maintained a safe and supportive environment, ensured contract for safety, provided clear and simple instructions, attempted to orient to reality, encouraged independent performance of ADLs, and maintained Q 15min safety checks. Response : Pt. was awoken by this comic writer to attend breakfast in the Group Room. She presents as cooperative, impulsive, and continues to appear slightly hypomanic. Pt. is compliant with taking her medications, however states in a paranoid delusional manner, "You're always changing my medications. I had different ones last night." This comic writer provided education to pt. regarding how the medications she takes are different in the morning versus the nighttime, however she remained fixed in this delusion. Pt. denies all MH s/s and reports she feels ready to discharge. She states, "I want to clean my house and take care of my animals." Pt. continues on with rapid speech and a tangental thought process to talk about the situational dysphoria she continues to experience regarding her family, her living situation, and having an [facility] worker come to her home. Pt. states irritably, "The workers don't do anything, they just get in my way." Pt. remains up throughout the day coloring in the Group Room with others as is her routine. Plan : Per Dr. Mata, pt. continues to require a safe and supportive environment and will likely return to her previous housing.
[2022-05-05] MEDS: lurasidone 20mg tablet PO SCH (17:57)
[2022-05-05 19:39] VITALS: BP 131/80
[2022-05-05] MEDS: traZODone 50mg tablet PO SCH (20:39)
[2022-05-05] MEDS: levetiracetam 250mg tablet PO SCH (20:39)
[2022-05-05] MEDS: olanzapine 10mg tablet PO SCH (20:39)
[2022-05-05] MEDS: atorvastatin 20mg tablet PO SCH (20:39)
--- NOTE | 2022-05-06 01:52 | NUR ---
Nursing Progress Note: Problem : Patient is unable to provide food, clothing and long term despite family support. She is confused, disorganized and exhibits delusional beliefs. She has history of Bipolar. Pt. continues to make intermittent paranoid delusional statements. Interventions : Maintained a safe and supportive environment, ensured contract for safety, provided clear and simple instructions, attempted to orient to reality, encouraged independent performance of ADLs, and maintained Q 15min safety checks. Response : Pt coloring in group room at start of shift. Pt was pleasant and talkative. She did not make any delusional statements. She is social with staff and peers. Pt took all meds and went to sleep. Plan : Per Dr. Mata, pt. continues to require a safe and supportive environment and will likely return to her previous housing.
[2022-05-06] MEDS: amLODIPine 5mg tablet PO SCH (07:43)
[2022-05-06] MEDS: pantoprazole 40mg Tablet.DR PO SCH (07:43)
[2022-05-06] MEDS: oxcarbazepine 150mg tablet PO SCH ×2 (07:48→20:02)
[2022-05-06 08:00] VITALS: BP 129/74
--- NOTE | 2022-05-06 16:51 | NUR ---
Nursing Progress Note: Problem: Pt admitted 04/16/22 to [facility] on 5150 for GD. Dari is unable to provide food, clothing and prison despite family support. She is confused, disorganized and exhibits delusional beliefs. She has history of Bipolar. Interventions: Patient was awake and coloring in the Community Room at 0630. Patient ate breakfast. Pt has been calm and cooperative. Patient took all medications without hesitation. Talking with peers most of the day. Response: Patient has been having a great day today. No behaviors throughout the day. Plan: Patient continues to require a safe and supportive environment and medication adjustments. Patient continues to remain on a 5270 for GD.
[2022-05-06] MEDS: lurasidone 20mg tablet PO SCH (17:23)
[2022-05-06 19:31] VITALS: BP 138/85
[2022-05-06] MEDS: traZODone 50mg tablet PO SCH (20:02)
[2022-05-06] MEDS: olanzapine 10mg tablet PO SCH (20:02)
[2022-05-06] MEDS: levetiracetam 250mg tablet PO SCH (20:02)
[2022-05-06] MEDS: atorvastatin 20mg tablet PO SCH (20:02)
--- NOTE | 2022-05-07 06:04 | NUR ---
Nursing Progress Note: Problem : Patient is unable to provide food, clothing and group home despite family support. She is confused, disorganized and exhibits delusional beliefs. She has history of Bipolar. Pt. continues to make intermittent paranoid delusional statements. Interventions : Maintained a safe and supportive environment, ensured contract for safety, provided clear and simple instructions, attempted to orient to reality, encouraged independent performance of ADLs, and maintained Q 15min safety checks. Response : Pt coloring in group room at start of shift. Pt was angry w/another patient and cussing, was redirected. Pt took all meds and went to sleep. Woke during the night c/o keys prn tylenol was given Plan : Per Dr. Mata, pt. continues to require a safe and supportive environment and will likely return to her previous housing.
--- NOTE | 2022-05-07 07:09 | NUR ---
Reassessment: Pt continues eating well, documented with mostly 100% PO intake meeting estimated nutrient needs. [facility] 05/04. No nutrition intervention implemented at this time. Will continue to follow. Recommendations: 1) Continue regular diet 2) Bowel care PRN 3) Weekly scaled weights Addendum: 05/07/22 at [address] Amended: Links added.
[2022-05-07] MEDS: pantoprazole 40mg Tablet.DR PO SCH (07:34)
[2022-05-07] MEDS: oxcarbazepine 150mg tablet PO SCH ×2 (07:34→20:31)
[2022-05-07] MEDS: amLODIPine 5mg tablet PO SCH (07:35)
[2022-05-07 08:00] VITALS: BP 128/80
--- NOTE | 2022-05-07 10:36 | NUR ---
Pt attended group today. We talked about Self Nurturing about how to curate spaces of nurture/self-care for themselves. We then did Vision board visualizing safe/nurture places and words. Pt. engaged in the group sporadically and did not want to engage in any activities. Her mood was depressive with a labile affect. She became very upset when we talked about places and people that are nurturing in our lives. She rapidly expressed how all the people in her life were not supportive to her, naming them and rambling about what each person does that is not helpful. Eventually this Atm Manager had to stop her and redirect her and provide some reflective listening to help her understand that we all empathized with her but that we also had to go on with the group. She was amenable to the redirection and sat and listened to other peers share in the group. She appears to feel deeply unsupported by the people in her life and fears for her grandsons safety. Her thought process was circumstantial and thought content may contain some delusional content. Claudia Hernandez, CHAYA
[2022-05-07] MEDS: acetaminophen 325mg tablet PO PRN (11:12)
--- NOTE | 2022-05-07 13:38 | NUR ---
[address] ISATU Lorenzo
--- NOTE | 2022-05-07 15:26 | NUR ---
[facility] REFERRAL Completed and sent [facility] referral. ISATU Lorenzo
--- NOTE | 2022-05-07 17:01 | NUR ---
Nursing Progress Note: Dari Problem: Patient is unable to provide food, clothing and assisted despite family support. She is confused, disorganized and exhibits delusional beliefs. She has history of Bipolar. Today pt. presents calm with episodes of intrusiveness toward cohorts. Intervention: Rubber Vulcanizing Machine Operator continues to provide pt. with a safe and therapeutic environment, clear communication, active listening and positive encouragement. Pt. encouraged to participate on unit and in group therapy, and 1:1 assessment provided with medication administration. Response: Pt. denies SI, HI, A/VH, she was calm and up early brushing her hair. She reported I slept good last night She spent a lot of time in the dining room coloring with cohorts and attended group. No outburst with peers, but was intrusive and attempted to order another pt. around. Pt. ate all her meals in the dining room and appears to enjoy the social time with table mates. Pt. DC plans has remain unchanged and she reports she wants to go home to her place Pt. c/o R) leg pain and PRN Tylenol given; effective. Plan: Patient continues to require crisis interruption and stabilization with medication management and monitoring in a safe and therapeutic environment.
[2022-05-07] MEDS: lurasidone 20mg tablet PO SCH (17:26)
[2022-05-07 19:56] VITALS: BP 140/89
[2022-05-07] MEDS: traZODone 50mg tablet PO SCH (20:31)
[2022-05-07] MEDS: olanzapine 10mg tablet PO SCH (20:31)
[2022-05-07] MEDS: atorvastatin 20mg tablet PO SCH (20:31)
[2022-05-07] MEDS: levetiracetam 250mg tablet PO SCH (20:31)
--- NOTE | 2022-05-07 22:19 | NUR ---
Nursing Progress Note: Problem: Patient is unable to provide food, clothing and prison despite family support. She is confused, disorganized and exhibits delusional beliefs. She has history of Bipolar. Intervention: Soda Tester continues to provide pt. with a safe and therapeutic environment, clear communication, active listening and positive encouragement. Pt. encouraged to participate on unit and in group therapy, and 1:1 assessment provided with medication administration. Response: Pt was in the group room at change of shift eating dinner and socializing with peers. Pt is irritable and c/o finding her roommates hair on her arm but nothing is on her arm. Pt took HS meds and broke each pill in half before taking them. Pt initially declined taking trileptal and zyprexa stating the meds keep her awake. Pt then decided she would take them and wanted a prn tylenol for ROQUE. Pt went to bed after taking meds. Plan: Patient continues to require crisis interruption and stabilization with medication management and monitoring in a safe and therapeutic environment.
[2022-05-08 07:32] VITALS: BP 112/56
[2022-05-08] MEDS: pantoprazole 40mg Tablet.DR PO SCH (08:14)
[2022-05-08] MEDS: amLODIPine 5mg tablet PO SCH (08:14)
[2022-05-08] MEDS: oxcarbazepine 150mg tablet PO SCH ×2 (08:15→20:14)
--- NOTE | 2022-05-08 09:05 | NUR ---
Pt. attended group today. Today with did an Art Expression group called Healing Symbols. The goal was to find strength in their own symbol which can feel empowering. We discussed if anything emerged in their art that surprised them and how they could incorporate their symbol into their day. Pt. engaged in the group well. She did the artwork though she didn't' seem to fully understand the instructions. Her mood was good with a full range of affect. Her demeanor was calm and pleasant. She appeared to enjoy socializing in the group with her peers. She shared her artwork with the group, there was some confusion whether the symbols were her symbols or for others. An example of that is she shonda a butterfly with hearts, when asked what the represented she reported she shonda what was on the another person's picture on the wall. Another example is she shonda a ring and when asked about that she reported that it was this Jig Mill Operator's ring. Her thought content may have contained delusional thoughts and thought process is circumstantial. Claudia Hernandez, DWARF TREE GROWER
--- NOTE | 2022-05-08 16:31 | NUR ---
[facility] INTERVIEW Kevin from [facility] interviewed Dari. Kevin reported Dari declined [facility] and stated she wants to go home. ISATU Lorenzo
--- NOTE | 2022-05-08 16:47 | NUR ---
Nursing Progress Note: Dari Problem: Patient is unable to provide food, clothing and custodial despite family support. She is confused, disorganized and exhibits delusional beliefs. She has history of Bipolar. Today pt. presents as disorganized and intrusiveness with cohorts. Intervention: Tobacco Cloth Reclaimer continues to provide pt. with a safe and therapeutic environment, clear communication, active listening and positive encouragement. Pt. encouraged to participate on unit and in group therapy, and 1:1 assessment provided with medication administration. Q15min checks continue for pt. safety. Response: Pt. denies SI, HI, A/VH, she discusses numerous ideas from her dog being given away and the probate judge not believing her, and a neighbor with a Chevy truck. She reports she is unsure about her DC plan. Pt. takes her meds without hesitancy. She remained OOB and proceeded to set up a coloring station this morning. Pt. presents with fair hygiene and wearing unit scrubs. Pt. attended group with cohorts, and ate all her meals in the community room. At times pt. attempts to boss other cohorts around but is easily redirected. Pt is in a fair mood today. Plan: Patient continues to require crisis interruption and stabilization with medication management and monitoring in a safe and therapeutic environment.
[2022-05-08] MEDS: lurasidone 20mg tablet PO SCH (17:20)
[2022-05-08 19:16] VITALS: BP 138/89
[2022-05-08] MEDS: atorvastatin 20mg tablet PO SCH (20:14)
[2022-05-08] MEDS: traZODone 50mg tablet PO SCH (20:14)
[2022-05-08] MEDS: olanzapine 10mg tablet PO SCH (20:14)
[2022-05-08] MEDS: levetiracetam 250mg tablet PO SCH (20:14)
--- NOTE | 2022-05-08 22:29 | NUR ---
Nursing Progress Note: Dari Problem: Patient is unable to provide food, clothing and retirement despite family support. She is confused, disorganized and exhibits delusional beliefs. She has history of Bipolar. Today pt. presents as disorganized and intrusiveness with cohorts. Intervention: Intel Recruiter continues to provide pt. with a safe and therapeutic environment, clear communication, active listening and positive encouragement. Pt. encouraged to participate on unit and in group therapy, and 1:1 assessment provided with medication administration. Q15min checks continue for pt. safety. Response: Pt was in the group room eating at change of shift "saving my friends plate for her." Pt socialized and colored before going to bed. Pt denies s/i, denies a/vh. States she wants to go home saturday, but only if her daughter in law doesnt use her washing machine to wash long underwear in it. Pt talks about her washing maching for several minutes before taking HS meds. Pt requested prn tylenol for a headache and went to bed. Plan: Patient continues to require crisis interruption and stabilization with medication management and monitoring in a safe and therapeutic environment.
[2022-05-09 08:00] VITALS: BP 142/82
[2022-05-09] MEDS: amLODIPine 5mg tablet PO SCH (08:29)
[2022-05-09] MEDS: oxcarbazepine 150mg tablet PO SCH ×2 (08:29→20:09)
[2022-05-09] MEDS: pantoprazole 40mg Tablet.DR PO SCH (08:30)
--- NOTE | 2022-05-09 09:30 | NUR ---
Pt. attended group today. The group today was about Anxiety, they were asked to identify the natural and silent triggers they have experienced. The second half of group was about what coping skills we can utilize when we are anxious. This Thread Reeler led a Visualization/Breathing technique called Ride the Panic Wave. Pt. engaged in the group minimally today. She appeared to struggle to relate to what we were talking about. When she would share her thoughts they usually were off the topic and circumstantial. Her thought content appeared to be WNL. Her demeanor was calm and compliant. Her mood was good with a restricted affect. Claudia Hernandez LCSW
--- NOTE | 2022-05-09 17:00 | NUR ---
Nursing Progress Note: Dari Problem: Patient is unable to provide food, clothing and senior living despite family support. She is confused, disorganized and exhibits delusional beliefs. She has history of Bipolar. Intervention: Production Scheduler continues to provide pt. with a safe and therapeutic environment, clear communication, active listening and positive encouragement. Pt. encouraged to participate on unit and in group therapy, and 1:1 assessment provided with medication administration. Q15min checks continue for pt. safety. Response: Pt. denies SI, HI, A/VH, she continues to endorse her plan to get back to my place but easily becomes disorganized and struggles to stay on topic often discussing a flight of ideas. She is dressed in unit scrubs with fair hygiene and her hair is combed. Pt. spent most of the shift coloring and has a well-organized art station set up in community room. Pt. attended group and ate all her meals in the dining room with cohorts. She can often be seen socially interacting with other female peers, but continues to struggle with boundaries and becomes intrusive and demanding. She takes her meds without hesitancy. Plan: Patient continues to require crisis interruption and stabilization with medication management and monitoring in a safe and therapeutic environment.
[2022-05-09] MEDS: lurasidone 20mg tablet PO SCH (17:24)
[2022-05-09 19:42] VITALS: BP 135/78
[2022-05-09] MEDS: olanzapine 10mg tablet PO SCH (20:09)
[2022-05-09] MEDS: traZODone 50mg tablet PO SCH (20:10)
[2022-05-09] MEDS: naproxen 500mg tablet PO PRN (20:10)
[2022-05-09] MEDS: levetiracetam 250mg tablet PO SCH (20:10)
[2022-05-09] MEDS: atorvastatin 20mg tablet PO SCH (20:10)
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
[2022-05-10 08:00] VITALS: BP 114/68
[2022-05-10] MEDS: pantoprazole 40mg Tablet.DR PO SCH (08:03)
[2022-05-10] MEDS: oxcarbazepine 150mg tablet PO SCH ×2 (08:04→20:21)
[2022-05-10] MEDS: amLODIPine 5mg tablet PO SCH (08:04)
[2022-05-10] MEDS ORDERED: divalproex sod 250mg ER (24-hour) tablet PO SCH (08:30)
--- NOTE | 2022-05-10 15:52 | NUR ---
Nursing Progress Note: Problem: Patient is unable to provide food, clothing and assisted despite family support. She is confused, disorganized and exhibits delusional beliefs. She has history of Bipolar. Intervention: Oyster Preparer continues to provide pt. with a safe and therapeutic environment, clear communication, active listening and positive encouragement. Pt. encouraged to participate on unit and in group therapy, and 1:1 assessment provided with medication administration. Q15min checks continue for pt. safety. Response: Pt denies A/VH, S/HI. 1:1 done, pt. cooperative with assessment. Pt voicing some paranoia, stating I must eat my food otherwise Ill get in trouble. Oyster Preparer reassured pt. she is safe here and would not be getting into any trouble. Pt. was hyper-verbal during interaction with disorganized and rapid thought processing. She continues to struggle to stay on one topic with a flight of ideas. She told this nurse she will be discharging home this Saturday the to her home in [place] per Dr. Buck. It is unclear if this is accurate information. She spent the majority of the day in the community room watching TV. She attended group and meals. Medication compliant. Plan: Patient continues to require crisis interruption and stabilization with medication management and monitoring in a safe and therapeutic environment.
[2022-05-10] MEDS: lurasidone 20mg tablet PO SCH (17:40)
[2022-05-10 19:33] VITALS: BP 119/75
[2022-05-10] MEDS: olanzapine 10mg tablet PO SCH (20:19)
[2022-05-10] MEDS: levetiracetam 250mg tablet PO SCH (20:19)
[2022-05-10] MEDS: traZODone 50mg tablet PO SCH (20:20)
[2022-05-10] MEDS: atorvastatin 20mg tablet PO SCH (20:21)
[2022-05-10] MEDS: divalproex sod 250mg ER (24-hour) tablet PO SCH (20:21)
--- NOTE | 2022-05-11 02:39 | NUR ---
Nursing Progress Note: Problem: Patient is unable to provide food, clothing and prison despite family support. She is confused, disorganized and exhibits delusional beliefs. She has history of Bipolar. Intervention: provide pt. with a safe and therapeutic environment, clear communication, active listening and positive encouragement. Pt. encouraged to participate on unit and in group therapy, and 1:1 assessment provided with medication administration. Q15min checks continue for pt. safety. Response: Patient found siting in community room waiting for snack time. Patient allowed nurse to take vitals and started complain about a bump under her arm pit. Nurse assessed the bump was slightly red but patient wasn't complaining of pain. Patient stayed in community room watching tv until snack time. Patient was observed talking to other patient and rubbing sore under her arm. Patient took all night medications and went to bed. Patient woke up in the night and brought a napkin covered in blood and puss, patient stated she had popped the bump that was under her arm. Opening was cleaned and covered with a bandage. Patient returned to bed. Plan: Patient continues to require crisis interruption and stabilization with medication management and monitoring in a safe and therapeutic environment.
[2022-05-11] MEDS: acetaminophen 325mg tablet PO PRN ×3 (05:32→21:56)
[2022-05-11] MEDS: divalproex sod 250mg ER (24-hour) tablet PO SCH ×2 (07:30→21:26)
[2022-05-11] MEDS: oxcarbazepine 150mg tablet PO SCH ×2 (07:30→21:27)
[2022-05-11] MEDS: pantoprazole 40mg Tablet.DR PO SCH (07:30)
[2022-05-11] MEDS: amLODIPine 5mg tablet PO SCH (07:30)
[2022-05-11 08:00] VITALS: BP 124/63
--- NOTE | 2022-05-11 09:10 | NUR ---
TESTING FROM [facility] Both Psychologists, Morgan Lloyd and CHARLEEN, are recommending that client be re-tested. Dr. Strange note stated clients total score on the MoCA was 17, which is well below the expected score for a woman of her age and educational level (below the 1st percentile). Her score on the Byron Complex Figure Test, which measures the executive functions of planning, organizing and self-monitoring, was also below the 1st percentile. However, it appears to me that these deficits are attributable to her current symptoms of racing thoughts, flight of ideas and pressured speech rather than to an underlying dementing process. I would recommend testing her again after these symptoms have been eliminated or at least substantially reduced. April note stated the same symptoms and MoCA score, but states that they recommend that client be re-evaluated after client is medically/mentally stabilized. ISATU Lorenzo
--- NOTE | 2022-05-11 11:41 | NUR ---
Nursing Note: Pt. has what appears to be a cyst in her left armpit area. Area is slightly reddened and painful. No drainage is noted, but pt. reports she popped it last night. V/S are WNL. Dr. Sears advised and she will order a CBC and oral Keflex for pt. Also per Dr. Sears, a gauze dressing is to be placed over the area. Pictures of area obtained and placed in pt's chart, will continue to monitor closely.
[2022-05-11 12:29] LABS: BASOPHILS % (AUTO) 0.1 % (0-1); EOSINOPHILS % (AUTO) 0 % (0-6); HEMATOCRIT 34.7 % (35.0-45.0); HEMOGLOBIN 12.2 g/dl (12.0-16.0); LYMPHOCYTES # (AUTO) 0.8 X10'3 (1.1-4.8); LYMPHOCYTES % (AUTO) 16.1 % (21-51); MEAN CORPUSCULAR HEMOGLOBIN 29.5 PG (27.0-31.0); MEAN CORPUSCULAR HGB CONC 35.1 g/dL (33.0-36.5); MONOCYTES # (AUTO) 0.4 X10'3 (0-0.9); MONOCYTES % (AUTO) 7.1 % (2-12); NEUTROPHILS # (AUTO) 3.9 X10'3 (1.8-7.7); NEUTROPHILS % (AUTO) 76.7 % (42-75); PLATELET COUNT 233 X10'3 (140-440); RED BLOOD COUNT 4.13 X10'6 (4.20-5.60); RED CELL DISTRIBUTION WIDTH 14.8 % (11.5-14.5)
[2022-05-11] MEDS: cephalexin 250mg capsule PO SCH ×2 (14:04→21:26)
--- NOTE | 2022-05-11 16:51 | NUR ---
Nursing Progress Note: Problem : Patient is unable to provide food, clothing and jail despite family support. She is confused, disorganized and exhibits delusional beliefs. She has history of Bipolar. Pt. continues to make intermittent paranoid delusional statements. Interventions : Maintained a safe and supportive environment, ensured contract for safety, provided clear and simple instructions, attempted to orient to reality, encouraged independent performance of ADLs, obtained an order for labs and an oral ABT for cyst under left armpit, and maintained Q 15min safety checks. Response : Received pt. sleeping in bed at the beginning of the shift, she awoke to attend breakfast in the Group Room and afterwards remained up coloring and interacting with others as is her routine. Pt. was compliant with her ordered medications, however she again made what appeared to be paranoid delusional statements while taking them. Pt. stated, "I got a ton of medicine last night. They are always changing them, it just depends on who the nurse is." She then picked up a pill and stated, "That's my Trazodone." This database report writer provided education to pt. regarding the fact that she only takes Trazodone at nighty and she reported some understanding, however continues to be somewhat fixed in her delusions. 1:1 was completed later at bedside, pt. continues to deny all MH s/s and reports she is anxious to return home on Saturday. She continues to speak in a somewhat tangental manner about different family and staff members, but is able to be redirected as needed. Pt. remains up throughout the day coloring in the Group Room with others as is her routine. In the afternoon she becomes upset when that TV channel is changed to a show she has already seen that was picked by others. Pt. retreats to her room where she lays crying loudly. However she is able to be redirected and is provided with headphones to listen to. Plan : Pt. continues to require a safe and supportive environment and will likely return to her previous housing.
[2022-05-11] MEDS: lurasidone 20mg tablet PO SCH (18:20)
[2022-05-11 19:33] VITALS: BP 129/72
[2022-05-11] MEDS: atorvastatin 20mg tablet PO SCH (21:26)
[2022-05-11] MEDS: traZODone 50mg tablet PO SCH (21:26)
[2022-05-11] MEDS: olanzapine 10mg tablet PO SCH (21:26)
[2022-05-11] MEDS: levetiracetam 250mg tablet PO SCH (21:26)
[2022-05-12] MEDS: cephalexin 250mg capsule PO SCH ×4 (03:49→20:35)
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
[2022-05-12] MEDS: pantoprazole 40mg Tablet.DR PO SCH (07:27)
[2022-05-12] MEDS: amLODIPine 5mg tablet PO SCH (07:28)
[2022-05-12] MEDS: divalproex sod 250mg ER (24-hour) tablet PO SCH ×2 (07:28→20:35)
[2022-05-12] MEDS: oxcarbazepine 150mg tablet PO SCH (07:28)
[2022-05-12] MEDS: acetaminophen 325mg tablet PO PRN (07:29)
[2022-05-12 08:00] VITALS: BP 134/75
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
--- NOTE | 2022-05-12 16:20 | NUR ---
Nursing Progress Note: Problem : Patient is unable to provide food, clothing and senior living despite family support. She is confused, disorganized and exhibits delusional beliefs. She has history of Bipolar. Pt. continues to make intermittent paranoid delusional statements and her affect is labile at intervals. Interventions : Maintained a safe and supportive environment, ensured contract for safety, provided clear and simple instructions, attempted to orient to reality, encouraged independent performance of ADLs, monitored cyst to left armpit and completed ordered dressing change, kept pt. from another peer with whom she has had multiple conflicts per Dr. Barber, and maintained Q 15min safety checks. Response : Received pt. sleeping in bed at the beginning of the shift, she awoke to attend breakfast in the Group Room and afterwards remained up coloring and interacting with others as is her routine. Pt. was compliant with her ordered medications, however she again made what appeared to be paranoid delusional statements while taking them. Pt. stated, "I got a ton of medicine last night. They are always changing them, it just depends on who the nurse is." She then picked up a pill and stated, "That's my Trazodone." This music writer provided education to pt. regarding the fact that she only takes Trazodone at nighty and she reported some understanding, however continues to be somewhat fixed in her delusions. 1:1 was completed later at bedside, pt. continues to deny all MH s/s and reports she is anxious to return home on Saturday. She continues to speak in a somewhat tangental manner about different family and staff members, but is able to be redirected as needed. Pt. remains up throughout the day coloring in the Group Room with others as is her routine. This music writer cleaned and completed ordered dressing change to cyst under pt's left armpit. No s/s of increased redness or drainage was noted. Area on pt's back which came into contact with hot coffee during the previous shift was also monitored, no s/s of erythema was noted and pt. denies any pain. Plan : Pt. continues to require a safe and supportive environment and medication adjustments. Per Dr. Barber, a request to the [facility] of more services and resources will be made.
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
--- NOTE | 2022-05-12 17:19 | NUR ---
Disregard last note, saved in error
[2022-05-12] MEDS: lurasidone 20mg tablet PO SCH (18:19)
[2022-05-12 18:52] VITALS: BP 136/67
[2022-05-12 19:00] VITALS: BP 136/67
[2022-05-12] MEDS: atorvastatin 20mg tablet PO SCH (20:35)
[2022-05-12] MEDS: olanzapine 10mg tablet PO SCH (20:35)
[2022-05-12] MEDS: traZODone 50mg tablet PO SCH (20:35)
[2022-05-12] MEDS: levetiracetam 250mg tablet PO SCH (20:35)
--- NOTE | 2022-05-13 01:35 | NUR ---
Nursing Progress Note: Problem : Patient is unable to provide food, clothing and correction despite family support. She is confused, disorganized and exhibits delusional beliefs. She has history of Bipolar. Pt. continues to make intermittent paranoid delusional statements and her affect is labile at intervals. Interventions : Maintained a safe and supportive environment, ensured contract for safety, provided clear and simple instructions, attempted to orient to reality, encouraged independent performance of ADLs, kept pt. from another peer with whom she has had multiple conflicts per Dr. Barber, and maintained Q 15min safety checks. Response : Received pt. in her room listening to music at the beginning of the shift. She attended snack and then retreated to bed early. Pt. continues to be kept from a peer she has had recent conflict with per Dr. Barber, with effectiveness. 1:1 was completed at bedside, pt. continues to make intermittent delusional statements. She states, "I was praying to my mom and God and then I heard a whistle through the window. Then a breeze blew the napkins. I think it was a sign." She continues on to talk about various other topics in a tangental and hyperverbal manner, but is able to be redirected. Pt. continues to express excitement regarding her hope that she will return home on Saturday. Plan : Pt. continues to require a safe and supportive environment and medication adjustments.
[2022-05-13] MEDS: cephalexin 250mg capsule PO SCH ×4 (02:30→19:55)
[2022-05-13 08:00] VITALS: BP 119/71
[2022-05-13] MEDS: divalproex sod 250mg ER (24-hour) tablet PO SCH ×2 (08:30→19:54)
[2022-05-13] MEDS: pantoprazole 40mg Tablet.DR PO SCH (08:30)
[2022-05-13] MEDS: amLODIPine 5mg tablet PO SCH (08:31)
--- NOTE | 2022-05-13 10:30 | NUR ---
Update Information on patient's current discharge status: Patient's son Noe came in to visit during visiting hours. Per patient's son Noe, Patient has been evicted from her home as of 05/21/22. Noe informed that the chief solution architect of the property has evicted this patient as they will be demolishing her home and a new development will be in its place. 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 We will most likely be using our housing or are in the process of losing our own housing right now. We will not be able to take my Mom." Informed the patient and her son that I would inform the patient's Public Health Program Manager who is Lakesha
--- NOTE | 2022-05-13 17:54 | NUR ---
Nursing Progress Note: Problem: Pt admitted 04/16/22 to [facility] on 5150 for GD. Dari is unable to provide food, clothing and chcf despite family support. She is confused, disorganized and exhibits delusional beliefs. She has history of Bipolar. Interventions: See Nursing Note regarding information given to this Setter Machine writing patients scheduled discharge per patient that was scheduled for tomorrow. Patients son, Noe, reported that patient has been evicted from her home by her landlord as they have sold the property and will be building a new development. Patient took medications without hesitation. Spent most of the day crying in her room after finding out that she was being evicted. Response: Patient has been having a great day today. No behaviors throughout the day. Plan: Patient continues to require a safe and supportive environment and medication adjustments. Patient continues to remain on a 5270 for GD. Will leave a voicemail for Lakesha Senior Staff Consultant, regarding news of patients lack of housing in 7 days.
[2022-05-13] MEDS: lurasidone 20mg tablet PO SCH (18:11)
[2022-05-13 19:03] VITALS: BP 140/90
[2022-05-13] MEDS ORDERED: lurasidone 20mg tablet PO ONE (19:30)
[2022-05-13] MEDS: olanzapine 10mg tablet PO SCH (19:54)
[2022-05-13] MEDS: levetiracetam 250mg tablet PO SCH (19:55)
[2022-05-13] MEDS: atorvastatin 20mg tablet PO SCH (19:55)
[2022-05-13] MEDS: traZODone 50mg tablet PO SCH (19:55)
[2022-05-14] MEDS: cephalexin 250mg capsule PO SCH ×4 (02:14→20:11)
[2022-05-14] MEDS: acetaminophen 325mg tablet PO PRN ×2 (02:15→20:19)
--- NOTE | 2022-05-14 03:51 | NUR ---
Nursing Progress Note: Problem : Patient is unable to provide food, clothing and detention despite family support. She is confused, disorganized and exhibits delusional beliefs. She has history of Bipolar. Pt. continues to make intermittent paranoid delusional statements. Interventions : Maintained a safe and supportive environment, ensured contract for safety, provided clear and simple instructions, attempted to orient to reality, encouraged independent performance of ADLs, obtained an order for labs and an oral ABT for cyst under left armpit, and maintained Q 15min safety checks. Response : Patient is pleasant and cooperative with care; compliant with medication. PRN Tylenol provided for pain. Patient denies SI, HI, A/VH; continues to express disorganized and delusional thought content. She was talking about the height of Donny Trujillo's son and and claiming to have been at the hospital after Cassandra was released. She continued to state he was waiving at all the people and spreading COVID. Patient was observed crying to other peers today about an eviction notice from her landlord. She participated in HS snack prior to bed; observed sleeping and does not appear to be having difficulty. Plan : Pt. continues to require a safe and supportive environment and will likely return to her previous housing.
[2022-05-14] MEDS: pantoprazole 40mg Tablet.DR PO SCH (07:48)
[2022-05-14] MEDS: divalproex sod 250mg ER (24-hour) tablet PO SCH ×2 (07:49→20:11)
[2022-05-14 08:00] VITALS: BP 100/52
[2022-05-14 08:15] VITALS: BP 123/68
[2022-05-14] MEDS: amLODIPine 5mg tablet PO SCH (09:02)
--- NOTE | 2022-05-14 14:35 | NUR ---
1:1 Presenting Issues: Pt was tearful, crying in the community room as pt is unable to accept the fact that she no longer has a home to rt to. Interventions: Clinician met w/pt & provided active & reflective listening to support her processing of recent stressors-she's now homeless. Pt was unable to accept an alternative d/c destination other than her home at this time. Notified pt's RN that pt may need PRN later this afternoon. Plan: Clinician will engage [facility] in dcp activities. Lakesha Vega LCSW Addendum: 05/15/22 at 1019 by Lakesha Vega SS Amended: Links added.
--- NOTE | 2022-05-14 17:40 | NUR ---
Nursing Progress Note: Problem: Pt admitted 04/16/22 to [facility] on 5150 for GD. Dari is unable to provide food, clothing and prison despite family support. She is confused, disorganized and exhibits delusional beliefs. She has history of Bipolar. Interventions: Patient up early this morning and in Community Room with peers writing on paper and coloring. Patient ate her meals in the Community Room and c/o sciatica pain x1 and received Naprosyn. Patient had one episode where she cried while speaking to the [employer] Placing Supervisor regarding her son. Patient was intrusive all day, informed that she wanted to file a Writ of Habeus, solely based upon what another peer informed her to do. Patient then made multiple complaints about her new roommate prior to meeting her, because the roommate was stupid for having the window shade down. Informed patient to stop and not to continue to make derogatory comments about her roommate that are irrelevant. Response: Patient continued to remain intrusive despite multiple attempts to redirect the patient into new events. Patient attended Group Meeting. Plan: Patient continues to require a safe and supportive environment and medication adjustments. Patient continues to remain on a 5270 for GD.
[2022-05-14] MEDS: lurasidone 20mg tablet PO SCH (17:50)
[2022-05-14 19:20] VITALS: BP 152/88
[2022-05-14 19:58] LABS: ALANINE AMINOTRANSFERASE 33 U/L (12-78); ALBUMIN 4.2 G/DL (3.4-5.0); ALBUMIN/GLOBULIN RATIO 1.3 (1.1-1.5); ALKALINE PHOSPHATASE 95 IU/L (46-116); ANION GAP 6 (8-16); ASPARTATE AMINO TRANSFERASE 21 U/L (10-37); BILIRUBIN,TOTAL 0.4 MG/DL (0.1-1.0); BLOOD UREA NITROGEN 22 MG/DL (7-18); CALCIUM 9.8 MG/DL (8.5-10.1); CHLORIDE 96 MMOL/L (99-107); GLUCOSE 147 MG/DL (70-104); POTASSIUM 4.1 MMOL/L (3.5-5.1); SODIUM 133 MMOL/L (135-145); TOTAL CARBON DIOXIDE 31.3 MMOL/L (24-32); TOTAL PROTEIN 7.5 G/DL (6.4-8.2); VALPROATE 46 UG/ML (50-100); eGFR 56 ML/MIN
[2022-05-14] MEDS: levetiracetam 250mg tablet PO SCH (20:11)
[2022-05-14] MEDS: atorvastatin 20mg tablet PO SCH (20:11)
[2022-05-14] MEDS: traZODone 50mg tablet PO SCH (20:11)
[2022-05-14] MEDS: olanzapine 10mg tablet PO SCH (20:11)
[2022-05-15] MEDS: olanzapine 10mg tablet PO SCH (01:34)
[2022-05-15] MEDS: cephalexin 250mg capsule PO SCH ×4 (01:34→21:32)
--- NOTE | 2022-05-15 01:47 | NUR ---
Nursing Progress Note: Problem : Patient is unable to provide food, clothing and mcfp despite family support. She is confused, disorganized and exhibits delusional beliefs. She has history of Bipolar. Pt. continues to make intermittent paranoid delusional statements. Interventions : Maintained a safe and supportive environment, ensured contract for safety, provided clear and simple instructions, attempted to orient to reality, encouraged independent performance of ADLs, obtained an order for labs and an oral ABT for cyst under left armpit, and maintained Q 15min safety checks. Response : Patient is labile this shift; compliant with medication. PRN Tylenol and repeat Olanzapine provided this shift. She denies MH Sx and states she's never had any. She appears to be responding to IS this shift and expressing paranoia as she explained to show card writer that she did not want to participate in HS snack because "they're all laughing at me" and continued to state, "see I can here them," and peeked out her door. Patient continues to wake up early in the AM and she turned on all the lights to her room. When staff asked for her to only use low light above her bed she became irritable and argumentative but cooperated. Plan : Pt. continues to require a safe and supportive environment and will likely return to her previous housing.
--- NOTE | 2022-05-15 07:26 | NUR ---
Reassessment: Pt continues eating well, documented with mostly 100% PO intake meeting estimated nutrient needs. [facility] 05/14. No nutrition intervention implemented at this time. Will continue to follow. Recommendations: 1) Continue regular diet 2) Bowel care PRN 3) Weekly scaled weights Addendum: 05/15/22 at [address] Amended: Links added.
[2022-05-15] MEDS: pantoprazole 40mg Tablet.DR PO SCH (07:50)
[2022-05-15] MEDS: amLODIPine 5mg tablet PO SCH (07:52)
[2022-05-15] MEDS ORDERED: divalproex sod 250mg ER (24-hour) tablet PO SCH (08:00)
[2022-05-15 09:05] VITALS: BP 122/73
--- NOTE | 2022-05-15 09:08 | NUR ---
We did an Art Expression called Feeling Opposites to help focus and work on identifying current emotional stated of being and to identify what the opposite emotion would be. It also helps express and release these contrasting emotions for the purpose of balance, regulation and thought re-structuring. Pt. engaged minimally in the art expression today. She wrote a few words on her paper. She did not follow the instructions of identifying opposing emotions but instead wrote that she was happy on one side at peaceful on the other side. She later shared her work and reported that this is how she is feeling today. She colored coloring pages throughout the session. She listened and was encouraging when her peers shared their pictures. Claudia Hernandez, CHAYA
--- NOTE | 2022-05-15 10:58 | NUR ---
CM-Pre-DCP Presenting Issues: Pt's 5270 will on 06/02/22, she's been evicted from home and therefore no longer has a place to d/c to. Interventions: Clinician had t/c w/pt's [facility] CM- Jessika Washington @ [phone] and engaged her in pre-dcp activities. Per t/c [facility] will not conserve pt as "we haven't had an opportunity to serve her". Clinician provided updates re pt's progress, and recent changes to her housing situation. Pt's CM will contact pt's son to see if he can provide third green party support as CM was not able to understand why pt got evicted from her home. Clinician informed Ms. Washington that pt will not be able to safely maintain herself at the [place] and thus, [facility] may d/c pt to [facility] so [facility] can evaluate pt's MH status and assist pt w/short term housing issues. Clinician had t/c w/pt's son, Noe @ [phone] re pt's current housing situation, per t/c pt had received a 30-day notice in early April and is not able to return to the home as the eviction will be in force starting 05/21. Plan: Pt's 5270 will 06/02, pt february d/c prior to this date, [facility] to transport to [facility]. Clinician will continue to engage pt & [facility] in dcp activities. Lakesha Vega LCSW Addendum: 05/15/22 at 1133 by Lakesha Vega SS Amended: Links added.
--- NOTE | 2022-05-15 17:30 | NUR ---
Nursing Progress Note: Problem: Pt admitted 04/16/22 to [facility] on 5150 for GD. Dari is unable to provide food, clothing and skilled nursing despite family support. She is confused, disorganized and exhibits delusional beliefs. She has history of Bipolar. Interventions: Patient woke up and was sitting in the dining room coloring and talking with peers. Patient was intrusive and was overheard by this typewriter operator automatic, telling the peer that she was sitting with, to tell me about an incident regarding patients new roommate admitted 05/14, and inform me that she made a derogatory towards the patient. Peer started to tell me while I was in the Community Room at breakfast, and was informed to stop talking then this patient was informed that I had overheard her attempt to sabotage another patient, and that she needed to stop that behavior as we are all here together and need to get along with one another. Patient looked down and would not make eye contact with this typewriter operator automatic the rest of the day. The peer that was told to lie to me about what another person said to her, stated Im sorry. Patient stayed in the Community Room all day coloring. Response: Patient took medications without hesitation. New Roommate arrived at 1225, and patient was introduced to new roommate and asked to make every effort to ensure that things go smoothly and no further behaviors. Plan: Patient continues to require a safe and supportive environment and medication adjustments. Patient continues to remain on a 5270 for GD.
[2022-05-15] MEDS: lurasidone 20mg tablet PO SCH (18:43)
[2022-05-15 19:45] VITALS: BP 152/89
[2022-05-15] MEDS: atorvastatin 20mg tablet PO SCH (21:32)
[2022-05-15] MEDS: traZODone 50mg tablet PO SCH (21:32)
[2022-05-15] MEDS: divalproex sod 250mg ER (24-hour) tablet PO SCH (21:32)
[2022-05-15] MEDS: levetiracetam 250mg tablet PO SCH (21:39)
--- NOTE | 2022-05-16 02:17 | NUR ---
Nursing Progress Note: Problem : Patient is unable to provide food, clothing and senior living despite family support. She is confused, disorganized and exhibits delusional beliefs. She has history of Bipolar. Pt. continues to make intermittent paranoid delusional statements. Interventions : Maintained a safe and supportive environment, ensured contract for safety, provided clear and simple instructions, attempted to orient to reality, encouraged independent performance of ADLs, obtained an order for labs and an oral ABT for cyst under left armpit, and maintained Q 15min safety checks. Response : Patient is pleasant and cooperative with care this shift; compliant with medication. Depakote was increased to 500mg with no ASE observed. She denies SI, HI, A/VH; continues to express disorganized and delusional thoughts. She was observed coloring and social with peers. She participated in HS snack prior to bed; observed sleeping and does not appear to be having difficulty at this time. Plan : Pt. continues to require a safe and supportive environment and will likely return to her previous housing. Addendum: 05/16/22 at 0520 by Olamide Alvarenga RN Patient woke up early AM; she is perseverating on eviction and getting home to her dog. She is irritable with staff for not allowing her to leave.
[2022-05-16] MEDS: cephalexin 250mg capsule PO SCH ×2 (02:56→07:41)
[2022-05-16 07:17] VITALS: BP 128/79
[2022-05-16] MEDS: pantoprazole 40mg Tablet.DR PO SCH (07:40)
[2022-05-16] MEDS: divalproex sod 250mg ER (24-hour) tablet PO SCH ×2 (07:40→21:01)
[2022-05-16] MEDS: amLODIPine 5mg tablet PO SCH (07:41)
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
[2022-05-16] MEDS: lurasidone 20mg tablet PO SCH (18:40)
[2022-05-16 19:44] VITALS: BP 127/77
[2022-05-16] MEDS: olanzapine 10mg tablet PO SCH (21:00)
[2022-05-16] MEDS: traZODone 50mg tablet PO SCH (21:00)
[2022-05-16] MEDS: levetiracetam 250mg tablet PO SCH (21:01)
[2022-05-16] MEDS: atorvastatin 20mg tablet PO SCH (21:01)
[2022-05-16] MEDS: acetaminophen 325mg tablet PO PRN (21:07)
--- NOTE | 2022-05-17 02:42 | NUR ---
Nursing Progress Note: Problem : Patient is unable to provide food, clothing and nursing home despite family support. She is confused, disorganized and exhibits delusional beliefs. She has history of Bipolar. Pt. continues to make intermittent paranoid delusional statements. Interventions : Maintained a safe and supportive environment, ensured contract for safety, provided clear and simple instructions, attempted to orient to reality, encouraged independent performance of ADLs, obtained an order for labs and an oral ABT for cyst under left armpit, and maintained Q 15min safety checks. Response : Patient is pleasant and cooperative with care this shift; compliant with medication. PRN Tylenol provided. Patient denies MH Sx; continues to express disorganized and delusional thought content. She is intrusive with peers at times and when staff is talking with her roommate she involves herself into the conversation explaining what her roommate needs. Patient observed coloring in the community room and participated in HS snack prior to bed; observed sleeping and does not appear to be having difficulty. Plan : Pt. continues to require a safe and supportive environment and will likely return to her previous housing.
[2022-05-17 07:15] VITALS: BP 155/71
[2022-05-17] MEDS: pantoprazole 40mg Tablet.DR PO SCH (08:22)
[2022-05-17] MEDS: amLODIPine 5mg tablet PO SCH (08:22)
[2022-05-17] MEDS: divalproex sod 250mg ER (24-hour) tablet PO SCH (08:23)
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
[2022-05-17] MEDS: lurasidone 20mg tablet PO SCH (17:44)
[2022-05-17 19:00] VITALS: BP 135/88
[2022-05-17] MEDS: traZODone 50mg tablet PO SCH (20:05)
[2022-05-17] MEDS: levetiracetam 250mg tablet PO SCH (20:05)
[2022-05-17] MEDS: divalproex sodium 500mg tablet.DR PO SCH (20:05)
[2022-05-17] MEDS: olanzapine 10mg tablet PO SCH (20:05)
[2022-05-17] MEDS: atorvastatin 20mg tablet PO SCH (20:05)
[2022-05-17] MEDS: acetaminophen 325mg tablet PO PRN (21:17)
--- NOTE | 2022-05-18 03:34 | NUR ---
Nursing Progress Note: Problem : Patient is unable to provide food, clothing and alf despite family support. She is confused, disorganized and exhibits delusional beliefs. She has history of Bipolar. Pt. continues to make intermittent paranoid delusional statements. Interventions : Maintained a safe and supportive environment, ensured contract for safety, provided clear and simple instructions, attempted to orient to reality, encouraged independent performance of ADLs, obtained an order for labs and an oral ABT for cyst under left armpit, and maintained Q 15min safety checks. Response : Patient is pleasant and cooperative with care; compliant with medication. Depakote increased to 1000mg this shift with no ASE observed. PRN Tylenol provided. She denies SI, HI, A/VH; continues to report disorganized and delusional thought content. Patient is social with roommate and watched TV prior to bed; observed sleeping and does not appear to be having difficulty. Plan : Pt. continues to require a safe and supportive environment and will likely return to her previous housing.
[2022-05-18 07:18] VITALS: BP 117/81
[2022-05-18] MEDS: pantoprazole 40mg Tablet.DR PO SCH (07:28)
[2022-05-18] MEDS: amLODIPine 5mg tablet PO SCH (07:28)
[2022-05-18] MEDS: divalproex sodium 500mg tablet.DR PO SCH ×2 (07:29→20:20)
--- NOTE | 2022-05-18 11:20 | NUR ---
Area clean pt. refused needing any gauze. Addendum: 05/18/22 at 1120 by Jill Huerta RN Amended: Links added.
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
[2022-05-18] MEDS: lurasidone 20mg tablet PO SCH (17:36)
[2022-05-18 19:00] VITALS: BP 128/78
[2022-05-18] MEDS: olanzapine 10mg tablet PO SCH (20:19)
[2022-05-18] MEDS: atorvastatin 20mg tablet PO SCH (20:19)
[2022-05-18] MEDS: acetaminophen 325mg tablet PO PRN (20:20)
[2022-05-18] MEDS: levetiracetam 250mg tablet PO SCH (20:20)
[2022-05-18] MEDS: traZODone 50mg tablet PO SCH (20:20)
--- NOTE | 2022-05-19 04:40 | NUR ---
Nursing Progress Note: Problem : Patient is unable to provide food, clothing and penitentiary despite family support. She is confused, disorganized and exhibits delusional beliefs. She has history of Bipolar. Pt. continues to make intermittent paranoid delusional statements. Interventions : Maintained a safe and supportive environment, ensured contract for safety, provided clear and simple instructions, attempted to orient to reality, encouraged independent performance of ADLs, obtained an order for labs and an oral ABT for cyst under left armpit, and maintained Q 15min safety checks. Response : Patient is labile but cooperative with care; compliant with medication. PRN Tylenol provided. Denies SI, HI, A/VH; expressing paranoid thoughts about staff wanting her to stay in pain and not caring for her. She was observed coloring in the community room, retired to bed prior to snack. She is observed sleeping and does not appear to be having difficulty. Plan : Pt. continues to require a safe and supportive environment and will likely return to her previous housing.
[2022-05-19] MEDS: amLODIPine 5mg tablet PO SCH (07:37)
[2022-05-19] MEDS: divalproex sodium 500mg tablet.DR PO SCH ×2 (07:39→20:19)
[2022-05-19] MEDS: pantoprazole 40mg Tablet.DR PO SCH (07:39)
[2022-05-19 08:00] VITALS: BP 109/60
[2022-05-19] MEDS: acetaminophen 325mg tablet PO PRN ×2 (09:15→16:16)
--- NOTE | 2022-05-19 09:41 | NUR ---
Pt. refused needing Tx. Addendum: 05/19/22 at 0954 by Jill Huerta RN Amended: Links added.
--- NOTE | 2022-05-19 16:06 | NUR ---
Nursing Progress Note: Dari Problem: Patient is unable to provide food, clothing and [facility] despite family support. She is confused, disorganized and exhibits delusional beliefs. She has history of Bipolar. Intervention: Calcine Furnace Tender continues to provide pt. with a safe and therapeutic environment, clear communication, active listening and positive encouragement. Pt. encouraged to participate on unit and in group therapy, and 1:1 assessment provided with medication administration. Q15min checks continue for pt. safety. Response: Pt. denies SI, HI, A/VH, and reports my family just left me here and has no DC plan at this time. Pt. been awake and sitting in the community room most of shift coloring and socializing with female cohorts. Pt. has had no episodes verbal aggression to peers. Pt. c/o R leg pain and received PRN Tylenol. Pt. ate all her meals in dining room and takes her meds without hesitancy. Pt. is wearing unit scrubs and appears well groomed. Plan: Patient continues to require crisis interruption and stabilization with medication management and monitoring in a safe and therapeutic environment.
[2022-05-19] MEDS: lurasidone 20mg tablet PO SCH (17:31)
[2022-05-19 19:00] VITALS: BP 105/56
[2022-05-19] MEDS: levetiracetam 250mg tablet PO SCH (20:19)
[2022-05-19] MEDS: olanzapine 10mg tablet PO SCH (20:19)
[2022-05-19] MEDS: traZODone 50mg tablet PO SCH (20:19)
[2022-05-19] MEDS: atorvastatin 20mg tablet PO SCH (20:19)
--- NOTE | 2022-05-20 04:24 | NUR ---
Nursing Progress Note: Problem : Patient is unable to provide food, clothing and alf despite family support. She is confused, disorganized and exhibits delusional beliefs. She has history of Bipolar. Pt. continues to make intermittent paranoid delusional statements. Interventions : Maintained a safe and supportive environment, ensured contract for safety, provided clear and simple instructions, attempted to orient to reality, encouraged independent performance of ADLs and maintained Q 15min safety checks. Response : Patient is pleasant and cooperative with care; compliant with medication. Denies SI, HI, A/VH; no apparent delusions expressed this shift. She is self-isolative this shift; did not participated in HS snack. She is observed sleeping and does not appear to be having difficulty. Plan : Pt. continues to require a safe and supportive environment and will likely return to her previous housing.
[2022-05-20] MEDS: acetaminophen 325mg tablet PO PRN ×2 (06:15→15:33)
[2022-05-20 07:48] VITALS: BP 105/67
[2022-05-20] MEDS: divalproex sodium 500mg tablet.DR PO SCH ×2 (07:51→20:14)
[2022-05-20] MEDS: amLODIPine 5mg tablet PO SCH (07:51)
[2022-05-20] MEDS: pantoprazole 40mg Tablet.DR PO SCH (07:52)
--- NOTE | 2022-05-20 17:13 | NUR ---
Nursing Progress Note: Problem: Pt admitted 04/16/22 to [facility] on 5150 for GD. Dari is unable to provide food, clothing and residential despite family support. She is confused, disorganized and exhibits delusional beliefs. She has history of Bipolar. Interventions: Patient was awake in the Community Room this morning. Patient was coloring pictures and then ate her breakfast. Patient was then escorted to the TV Room to watch TV or was informed she could go to her room, as we needed to rotate the Community Room between this patient and another patient who were not getting along. Yesterday was this patients turn to stay in the Community Room, then today they switched places. Patient reports to Dr. Ramsay that she has been at [facility] for the past 10 years, and the patient would not believe that she had been here for the past 30 days. Patient continues to be delusional and intrusive. Patients son, Noe, visited. Response: Patient was checked on frequently to maintain separation between herself and another peer. Patient has continued to remain intrusive and entered the Community Room despite being asked to remain in a different area of the department. Patient watched TV most of the day. Plan: Patient continues to require a safe and supportive environment and medication adjustments. Patient continues to remain on a 5270 for GD.
[2022-05-20] MEDS: lurasidone 20mg tablet PO SCH (17:38)
[2022-05-20 19:27] VITALS: BP 110/68
[2022-05-20] MEDS: traZODone 50mg tablet PO SCH (20:14)
[2022-05-20] MEDS: olanzapine 10mg tablet PO SCH (20:14)
[2022-05-20] MEDS: atorvastatin 20mg tablet PO SCH (20:15)
[2022-05-20] MEDS: levetiracetam 250mg tablet PO SCH (20:15)
[2022-05-21] MEDS: acetaminophen 325mg tablet PO PRN ×2 (01:50→19:33)
--- NOTE | 2022-05-21 03:05 | NUR ---
Nursing Progress Note: Problem : Patient is unable to provide food, clothing and retirement despite family support. She is confused, disorganized and exhibits delusional beliefs. She has history of Bipolar. Pt. continues to make intermittent paranoid delusional statements. Interventions : Maintained a safe and supportive environment, ensured contract for safety, provided clear and simple instructions, attempted to orient to reality, encouraged independent performance of ADLs and maintained Q 15min safety checks. Response : Patient is pleasant and cooperative with care; compliant with medication. PRN Tylenol provided. Denies SI, HI, A/VH. She remained in her room this shift but social with technical report writer and roommate. Observed sleeping with interruptions this shift. Plan : Pt. continues to require a safe and supportive environment and will likely return to her previous housing.
[2022-05-21 06:55] LABS: BASOPHILS % (AUTO) 0.3 % (0-1); EOSINOPHILS % (AUTO) 0 % (0-6); HEMATOCRIT 38.1 % (35.0-45.0); HEMOGLOBIN 13.2 g/dl (12.0-16.0); MEAN CORPUSCULAR HEMOGLOBIN 29.4 PG (27.0-31.0); MEAN CORPUSCULAR HGB CONC 34.7 g/dL (33.0-36.5); MEAN CORPUSCULAR VOLUME 84.7 FL (78-98); MONOCYTES # (AUTO) 0.3 X10'3 (0-0.9); MONOCYTES % (AUTO) 7.4 % (2-12); NEUTROPHILS # (AUTO) 2.2 X10'3 (1.8-7.7); NEUTROPHILS % (AUTO) 64.3 % (42-75); PLATELET COUNT 239 X10'3 (140-440); RED BLOOD COUNT 4.49 X10'6 (4.20-5.60); RED CELL DISTRIBUTION WIDTH 14.3 % (11.5-14.5); WHITE BLOOD COUNT 3.4 X10'3 (4.5-11.0)
[2022-05-21 07:40] LABS: ALANINE AMINOTRANSFERASE 21 U/L (12-78); ALBUMIN 4.3 G/DL (3.4-5.0); ALBUMIN/GLOBULIN RATIO 1.3 (1.1-1.5); ALKALINE PHOSPHATASE 89 IU/L (46-116); ANION GAP 10 (8-16); ASPARTATE AMINO TRANSFERASE 22 U/L (10-37); BILIRUBIN,TOTAL 0.5 MG/DL (0.1-1.0); BLOOD UREA NITROGEN 17 MG/DL (7-18); CALCIUM 9.6 MG/DL (8.5-10.1); CHLORIDE 97 MMOL/L (99-107); CREATININE 0.74 MG/DL (0.40-0.90); GLUCOSE 86 MG/DL (70-104); POTASSIUM 4.1 MMOL/L (3.5-5.1); SODIUM 134 MMOL/L (135-145); TOTAL CARBON DIOXIDE 27.1 MMOL/L (24-32); TOTAL PROTEIN 7.5 G/DL (6.4-8.2); VALPROATE 93 UG/ML (50-100); eGFR 79 ML/MIN
[2022-05-21] MEDS: pantoprazole 40mg Tablet.DR PO SCH (07:54)
[2022-05-21] MEDS: divalproex sodium 500mg tablet.DR PO SCH ×2 (07:55→20:15)
[2022-05-21] MEDS: amLODIPine 5mg tablet PO SCH (07:56)
[2022-05-21 08:00] VITALS: BP 128/77
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
[2022-05-21] MEDS: lurasidone 20mg tablet PO SCH (18:01)
[2022-05-21 19:46] VITALS: BP 137/87
[2022-05-21] MEDS: atorvastatin 20mg tablet PO SCH (20:15)
[2022-05-21] MEDS: olanzapine 10mg tablet PO SCH (20:15)
[2022-05-21] MEDS: traZODone 50mg tablet PO SCH (20:16)
[2022-05-21] MEDS: levetiracetam 250mg tablet PO SCH (20:16)
--- NOTE | 2022-05-22 00:20 | NUR ---
Nursing Progress Note: Dari Problem: Pt admitted 04/16/22 to [place] [facility] on 5150 for GD. Dari is unable to provide food, clothing and jail despite family support. She is confused, disorganized and exhibits delusional beliefs. She has history of Bipolar. Interventions: Maintained a safe and supportive environment, ensured contract for safety, provided clear and simple instructions, attempted to orient to reality, encouraged independent performance of ADLs and maintained Q 15min safety checks. Response: Patient is pleasant and cooperative with care; compliant with medication. PRN Tylenol provided for leg pain. Denies SI, HI, A/VH. She remained in her room this shift but social with automobile and property underwriter. Pt took all HS medications without issue and remained in bed throughout the evening. Plan: Patient continues to require a safe and supportive environment and medication adjustments. Patient continues to remain on a 5270 for GD.
[2022-05-22 07:14] VITALS: BP 112/85
[2022-05-22] MEDS: divalproex sodium 500mg tablet.DR PO SCH ×2 (07:32→20:34)
[2022-05-22] MEDS: amLODIPine 5mg tablet PO SCH ×2 (07:32→07:38)
[2022-05-22] MEDS: pantoprazole 40mg Tablet.DR PO SCH (07:32)
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
--- NOTE | 2022-05-22 14:54 | NUR ---
Pt. attended group today. Todays group was about the difference between Growth Mindset vs. Fixed Mindset. We learned about the differences and then discussed what aspect of developing a growth mindset they wanted to work on. Pt. sat in the group and listened but did not participate in the actual topic. Her thought process was circumstantial and her thought content was WNL. She reported she was in a "happy" mood as she is going to be moving into her son's house. She seems to believe this is happening sooner than later, like she will be leaving today or tomorrow. Pt had to be redirected as she can interrupt others when they are speaking, she had to be reminded of this a few times. She is amenable to redirection. Claudia Hernandez, ALGEBRA TEACHER
[2022-05-22] MEDS: lurasidone 20mg tablet PO SCH (17:27)
[2022-05-22 20:20] VITALS: BP 147/87
[2022-05-22] MEDS: levetiracetam 250mg tablet PO SCH (20:33)
[2022-05-22] MEDS: atorvastatin 20mg tablet PO SCH (20:34)
[2022-05-22] MEDS: olanzapine 10mg tablet PO SCH (20:34)
[2022-05-22] MEDS: traZODone 50mg tablet PO SCH (20:34)
[2022-05-22] MEDS: acetaminophen 325mg tablet PO PRN (20:49)
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
--- NOTE | 2022-05-23 07:36 | NUR ---
Reassessment: Pt continues eating well, documented with mostly 100% PO intake meeting estimated nutrient needs. [facility] 05/21. No nutrition intervention implemented at this time. Will continue to follow. Recommendations: 1) Continue regular diet 2) Bowel care PRN 3) Weekly scaled weights Addendum: 05/23/22 at [address] Amended: Links added.
[2022-05-23] MEDS: divalproex sodium 500mg tablet.DR PO SCH ×2 (07:43→20:21)
[2022-05-23] MEDS: pantoprazole 40mg Tablet.DR PO SCH (07:43)
[2022-05-23] MEDS: amLODIPine 5mg tablet PO SCH (07:43)
[2022-05-23 08:00] VITALS: BP 157/85
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
--- NOTE | 2022-05-23 15:03 | NUR ---
CM Presenting Issues: Pt had agreed to allow clinician to provide referral for pt to go to [facility] for additional support following d/c. Interventions: Clinician completed & sent referral to [facility]. Lakesha Vega LCSW Addendum: 05/23/22 at 1504 by Lakesha Vega SS Amended: Links added.
--- NOTE | 2022-05-23 15:05 | NUR ---
Pt. attended group today. Today we did an art activity that was co-led by this Leather Lacer and a Pt. who taught the group how to create shapes using an index card that we then tessellated across a page. The Pt. was asked to share what their shape looked like to them and to color their page. Pt. engaged in the group minimally. She struggled to follow the instructions. Her thought content was circumstantial. He was in a bright mood today with a full range of affect. She reported that the activity was hard for her today because she felt it was complicated. She appeared to enjoy socializing with others in the group. Claudia Hernandez LCSW
--- NOTE | 2022-05-23 16:37 | NUR ---
Nursing Progress Note: Problem: [facility]. Dari is unable to provide food, clothing and prison despite family support. She is confused, disorganized and exhibits delusional beliefs. She has history of Bipolar d/o. Interventions: Patient was up early and sitting in her room. Patient was very excited that her son and [id number] came to see her during visiting hours. Patient came out of her room and hugged her son tightly with a big smile on her face. Patient advised RN that she had a great time visiting with her family. Patient stated that he is going to find her her own place to live. Patient also stated it had been a long time since she last saw her son. Patient takes her medication without any problems. Patient had a good day today and was happy. Patient enjoys her roommate and socializes with other peers. Response: Patient was not moved by the same peer attempting to agitate her. Patient ignored her peer when she was giving her the "finger." Patient has agreed to consider going to the [facility]. Plan: Patient continues to require a safe and supportive environment and medication adjustments. Patient continues to remain on a 5270 for GD.
[2022-05-23] MEDS: lurasidone 20mg tablet PO SCH (17:47)
[2022-05-23 19:42] VITALS: BP 140/86
[2022-05-23] MEDS: traZODone 50mg tablet PO SCH (20:21)
[2022-05-23] MEDS: levetiracetam 250mg tablet PO SCH (20:21)
[2022-05-23] MEDS: olanzapine 10mg tablet PO SCH (20:21)
[2022-05-23] MEDS: atorvastatin 20mg tablet PO SCH (20:21)
[2022-05-23] MEDS: acetaminophen 325mg tablet PO PRN ×2 (23:25→23:40)
--- NOTE | 2022-05-24 00:18 | NUR ---
Nursing Progress Note: Dari Problem: Pt admitted 04/16/22 to [place] [facility] on 5150 for GD. Dari is unable to provide food, clothing and prison despite family support. She is confused, disorganized and exhibits delusional beliefs. She has history of Bipolar d/o. Interventions: Maintained a safe and supportive environment, ensured contract for safety, provided clear and simple instructions, attempted to orient to reality, encouraged independent performance of ADLs and maintained Q 15min safety checks. Response: Patient isolated to her room most of the evening. She took all HS medications without issue. Pt makes comments about other peers on the unit (what they are doing and saying). Patient requesting trazadone however she receives 200MG trazadone HS. [place] and drink provided. Plan: Patient continues to require a safe and supportive environment and medication adjustments. Patient continues to remain on a 5270 for GD.
[2022-05-24] MEDS: acetaminophen 325mg tablet PO PRN ×3 (04:15→20:29)
[2022-05-24] MEDS: amLODIPine 5mg tablet PO SCH (07:30)
[2022-05-24] MEDS: divalproex sodium 500mg tablet.DR PO SCH ×2 (07:30→20:28)
[2022-05-24] MEDS: pantoprazole 40mg Tablet.DR PO SCH (07:30)
[2022-05-24 08:14] VITALS: BP 113/65
--- NOTE | 2022-05-24 10:14 | NUR ---
CM Presenting Issues: [facility] PM will interview pt this morning @ 11AM to determine if pt would be appropriate for [facility] services upon d/c. During the last admission pt had interviewed w/[facility]'s PM but declined offer to go there. Interventions: Clinician met w/pt and provided support to prepare pt for her interview w/[facility]. Pt continues to express desire to go to [facility]. Clinician provided education on [facility]'s services, pt is willing to go there upon d/c if she gets accepted. Clinician consulted w/Kevin from [facility], per consultation, pt's been accepted there upon d/c. Clinician notified attending physician re meds order. Plan: Clinician will engage [facility] in dcp activities. Lakesha Vega LCSW Addendum: 05/24/22 at 1103 by Lakesha Vega SS Amended: Links added.
[2022-05-24] MEDS ORDERED: tuberculin, purif. prot. deriv. 5 units/0.1ml ID PRN (11:40)
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
[2022-05-24] MEDS: lurasidone 20mg tablet PO SCH (18:23)
[2022-05-24 20:00] VITALS: BP 116/86
[2022-05-24] MEDS: traZODone 50mg tablet PO SCH (20:28)
[2022-05-24] MEDS: olanzapine 10mg tablet PO SCH (20:28)
[2022-05-24] MEDS: atorvastatin 20mg tablet PO SCH (20:28)
[2022-05-24] MEDS: levetiracetam 250mg tablet PO SCH (20:29)
--- NOTE | 2022-05-25 01:01 | NUR ---
Nursing Progress Note: Dari Problem: Patient is unable to provide food, clothing and skilled nursing despite family support. She is confused, disorganized and exhibits delusional beliefs. She has history of Bipolar. Intervention: Sandwich Counter Attendant continues to provide pt. with a safe and therapeutic environment, clear communication, active listening and positive encouragement. Pt. encouraged to participate on unit and in group therapy, and 1:1 assessment provided with medication administration. Q15min checks continue for pt. safety. Response: Pt is in community room with another peer coloring until snack time. Patient is pleasant and cooperative with care; compliant with medication. PRN Tylenol provided for leg pain. Denies SI, HI, A/VH. Pt to bed shortly after med pass. Plan: Patient continues to require crisis interruption and stabilization with medication management and monitoring in a safe and therapeutic environment.
[2022-05-25 07:00] VITALS: BP 117/88
[2022-05-25] MEDS: divalproex sodium 500mg tablet.DR PO SCH ×2 (07:31→20:49)
[2022-05-25] MEDS: pantoprazole 40mg Tablet.DR PO SCH (07:31)
[2022-05-25] MEDS: amLODIPine 5mg tablet PO SCH (07:31)
--- NOTE | 2022-05-25 16:04 | NUR ---
Nursing Progress Note: Dari Problem: Patient is unable to provide food, clothing and group home despite family support. She is confused, disorganized and exhibits delusional beliefs. She has history of Bipolar. Intervention: Medication given as ordered. Provided with a safe and therapeutic environment, clear communication, active listening and positive encouragement. Response: Patient is awake in her room at the start of the shift. Cooperative with assessment and medications. Denies any mental health symptoms at this time. Patient does not appear to understand why she was admitted to the unit. Speech is clear and linear. Patient makes frequent delusional statements. Patient is noted displaying sneaky behavior such as hiding other patients belongings and whispering with her peers around staff. Patient often becomes intrusive with other patients and requires redirection. Plan: Patient continues to require crisis interruption and stabilization with medication management and monitoring in a safe and therapeutic environment.
[2022-05-25] MEDS ORDERED: OMEP20CA16 PO (16:29)
[2022-05-25] MEDS ORDERED: TRAZ-256 PO (16:29)
[2022-05-25] MEDS ORDERED: OLAN10TA73 PO (16:29)
[2022-05-25] MEDS ORDERED: KEP500T PO (16:29)
[2022-05-25] MEDS ORDERED: [UNRECOGNIZED DRUG - CODE] PO (16:29)
[2022-05-25] MEDS ORDERED: OXCA150T14 PO ×2 (16:29)
[2022-05-25] MEDS ORDERED: NOR5T PO (16:29)
[2022-05-25] MEDS ORDERED: ATOR20TA66 PO (16:29)
[2022-05-25] MEDS ORDERED: LURA20TA PO (16:32)
[2022-05-25] MEDS: lurasidone 20mg tablet PO SCH (17:26)
[2022-05-25 19:00] VITALS: BP 112/71
[2022-05-25] MEDS: atorvastatin 20mg tablet PO SCH (20:46)
[2022-05-25] MEDS: olanzapine 10mg tablet PO SCH (20:46)
[2022-05-25] MEDS: levetiracetam 250mg tablet PO SCH (20:47)
[2022-05-25] MEDS: traZODone 50mg tablet PO SCH (20:47)
[2022-05-25] MEDS ORDERED: busPIRone 5mg tablet PO SCH (21:00)
[2022-05-26] MEDS: acetaminophen 325mg tablet PO PRN (04:29)
--- NOTE | 2022-05-26 04:33 | NUR ---
Nursing Progress Note: Problem : Patient is unable to provide food, clothing and long term despite family support. She is confused, disorganized and exhibits delusional beliefs. She has history of Bipolar. Pt. continues to make intermittent paranoid delusional statements. Interventions : Maintained a safe and supportive environment, ensured contract for safety, provided clear and simple instructions, attempted to orient to reality, encouraged independent performance of ADLs and maintained Q 15min safety checks. Response : Patient is pleasant and cooperative with care; compliant with medication. PRN Tylenol provided this shit. Denies SI, HI, A/VH; no apparent delusions expressed this shift. No apparent antagonizing behaviors towards peers observed this shift. She received HS snack prior to bed; observed sleeping and does not appear to be having difficulty. Plan : Pt. continues to require a safe and supportive environment and will likely return to her previous housing.
[2022-05-26] MEDS: pantoprazole 40mg Tablet.DR PO SCH (07:02)
[2022-05-26] MEDS: divalproex sodium 500mg tablet.DR PO SCH ×2 (07:02→20:10)
[2022-05-26] MEDS: amLODIPine 5mg tablet PO SCH (07:03)
[2022-05-26 07:13] VITALS: BP 102/54
[2022-05-26] MEDS ORDERED: ESCITALOPRAM OXALATE 5 MG TABLET PO SCH (08:00)
--- NOTE | 2022-05-26 15:35 | NUR ---
Nursing Progress Note: Dari Problem: Patient is unable to provide food, clothing and half-way despite family support. She is confused, disorganized and exhibits delusional beliefs. She has history of Bipolar. Intervention: Medication given as ordered. Provided with a safe and therapeutic environment, clear communication, active listening and positive encouragement. Response: Patient is awake in her room at the start of the shift. Cooperative with medications and assessment. Makes delusional statements. She is intrusive when staff talks to her peers and she requires redirection. Pleasant and social on the unit. Spends most of the day in the community room coloring, watching TV and socializing. Denies all mental health symptoms at this time. Plan: Patient continues to require crisis interruption and stabilization with medication management and monitoring in a safe and therapeutic environment.
[2022-05-26] MEDS: lurasidone 20mg tablet PO SCH (18:11)
[2022-05-26 19:23] VITALS: BP 167/90
[2022-05-26] MEDS: atorvastatin 20mg tablet PO SCH (20:09)
[2022-05-26] MEDS: levetiracetam 250mg tablet PO SCH (20:09)
[2022-05-26] MEDS: traZODone 50mg tablet PO SCH (20:10)
[2022-05-26] MEDS: olanzapine 10mg tablet PO SCH (20:10)
[2022-05-27] MEDS: acetaminophen 325mg tablet PO PRN ×2 (04:11→21:38)
--- NOTE | 2022-05-27 05:28 | NUR ---
Nursing Progress Note: Problem : Patient is unable to provide food, clothing and custodial despite family support. She is confused, disorganized and exhibits delusional beliefs. She has history of Bipolar. Pt. continues to make intermittent paranoid delusional statements. Interventions : Maintained a safe and supportive environment, ensured contract for safety, provided clear and simple instructions, attempted to orient to reality, encouraged independent performance of ADLs and maintained Q 15min safety checks. Response : Patient is pleasant and cooperative with care; compliant with medication. PRN Tylenol provided this shit. Denies SI, HI, A/VH; patient fixated with her roommate being upset with her. She remained isolated to her room and did not participate in HS snack this shift. Observed sleeping and does not appear to be having difficulty. Plan : Pt. continues to require a safe and supportive environment and will likely return to her previous housing.
[2022-05-27] MEDS: pantoprazole 40mg Tablet.DR PO SCH (07:11)
[2022-05-27] MEDS: divalproex sodium 500mg tablet.DR PO SCH ×2 (07:11→20:39)
[2022-05-27 07:57] VITALS: BP 126/80
[2022-05-27] MEDS: amLODIPine 5mg tablet PO SCH (08:37)
--- NOTE | 2022-05-27 17:04 | NUR ---
Nursing Progress Note: Dari Problem: Patient is unable to provide food, clothing and senior care despite family support. She is confused, disorganized and exhibits delusional beliefs. She has history of Bipolar. Intervention: Medication given as ordered. Provided with a safe and therapeutic environment, clear communication, active listening and positive encouragement. Response: Patient is awake in her room at the start of the shift. Cooperative with medications and assessment. Denies any SI/ HI/ hallucinations. Patient spends much of the shift in the community room coloring, socializing and watching TV. She is intrusive at times. Noted whispering to a peer telling her what to say to the staff. She is redirected and educated on allowing her peers to speak for themselves. Patient makes frequent delusional statements. Plan: Patient continues to require crisis interruption and stabilization with medication management and monitoring in a safe and therapeutic environment.
[2022-05-27] MEDS: lurasidone 20mg tablet PO SCH (17:17)
[2022-05-27 19:23] VITALS: BP 145/86
[2022-05-27] MEDS: levetiracetam 250mg tablet PO SCH (20:40)
[2022-05-27] MEDS: olanzapine 10mg tablet PO SCH (20:40)
[2022-05-27] MEDS: atorvastatin 20mg tablet PO SCH (20:40)
[2022-05-27] MEDS: traZODone 50mg tablet PO SCH (20:40)
--- NOTE | 2022-05-28 03:39 | NUR ---
Nursing Progress Note: Problem : Patient is unable to provide food, clothing and longterm despite family support. She is confused, disorganized and exhibits delusional beliefs. She has history of Bipolar. Pt. continues to make intermittent paranoid delusional statements. Interventions : Maintained a safe and supportive environment, ensured contract for safety, provided clear and simple instructions, attempted to orient to reality, encouraged independent performance of ADLs and maintained Q 15min safety checks. Response : Patient is pleasant and cooperative with care; compliant with medication. PRN Tylenol provided this shit. Denies SI, HI, A/VH; patient reports she is discharging to [facility] and fixated on her son taking her fish tank to where she is "moving in," referring to [facility]. She continues to express disorganized thoughts. Patient remained in her room throughout the shift; observed sleeping and does not appear to be having difficulty. Plan : Pt. continues to require a safe and supportive environment and will likely return to her previous housing.
[2022-05-28 08:00] VITALS: BP 119/77
--- NOTE | 2022-05-28 08:05 | NUR ---
CM-DCP Presenting Issues: Pt's scheduled to d/c today and transition to [facility] for additional support. Interventions: Clinician obtained physician's signature on meds order, and reviewed chart to gather results of PPD. Per chart review & consultation w/RN, PPD was ordered on 05/24 & d/c'd on 05/26 but was never placed. Clinician requested assigned RN to order a chest X-ray to r/o TB and do a Covid swab for pt ELI. Plan: Clinician will monitor d/c situation and coordinate transportation w/[facility]. Lakesha Vega LCSW Addendum: 05/28/22 at 0816 by Lakesha Vega SS Amended: Links added.
[2022-05-28] MEDS: divalproex sodium 500mg tablet.DR PO SCH ×2 (08:10→19:59)
[2022-05-28] MEDS: pantoprazole 40mg Tablet.DR PO SCH (08:10)
[2022-05-28] MEDS: amLODIPine 5mg tablet PO SCH (08:11)
--- NOTE | 2022-05-28 14:42 | NUR ---
RADHA Received t/c from [facility] will not be able to admit pt jesse tomorrow morning. Care team informed. Lakesha Vega LCSW Addendum: 05/28/22 at 1444 by Lakesha Vega SS Amended: Links added.
--- NOTE | 2022-05-28 14:57 | NUR ---
Nursing Progress Note Problem: Patient is unable to provide food, clothing and half-way despite family support. She is confused, disorganized and exhibits delusional beliefs. She has history of Bipolar. Intervention: Project Asst continues to provide pt. with a safe and therapeutic environment, clear communication, active listening and positive encouragement. Pt. encouraged to participate on unit and in group therapy, and 1:1 assessment provided with medication administration. Q15min checks continue for pt. safety. Response: Received Pt in bed awake and in no distress at the beginning of this shift. Pt woke and was cooperative with vitals and took AM meds w/o issue. Pt cooperative with assessments and engagable. Pt excited about leaving early in shift and covid test and chest x-ray completed to get into [facility]. Pt denies SI/HI, A/VHs and often had a smile on her face today. She is pleasant and cooperative and spent time socializing in community and rec. rooms. Pt found out she was not leaving until tomorrow and took the news well. Plan: Patient continues to require crisis interruption and stabilization with medication management and monitoring in a safe and therapeutic environment.
[2022-05-28] MEDS: lurasidone 20mg tablet PO SCH (18:14)
[2022-05-28 19:11] VITALS: BP 133/85
[2022-05-28] MEDS: atorvastatin 20mg tablet PO SCH (19:58)
[2022-05-28] MEDS: levetiracetam 250mg tablet PO SCH (19:58)
[2022-05-28] MEDS: traZODone 50mg tablet PO SCH (19:59)
[2022-05-28] MEDS: olanzapine 10mg tablet PO SCH (19:59)
[2022-05-28] MEDS: acetaminophen 325mg tablet PO PRN (20:01)
--- NOTE | 2022-05-29 04:32 | NUR ---
Nursing Progress Note: Problem : Patient is unable to provide food, clothing and group home despite family support. She is confused, disorganized and exhibits delusional beliefs. She has history of Bipolar. Pt. continues to make intermittent paranoid delusional statements. Interventions : Maintained a safe and supportive environment, ensured contract for safety, provided clear and simple instructions, attempted to orient to reality, encouraged independent performance of ADLs and maintained Q 15min safety checks. Response : Patient is pleasant and cooperative with care; compliant with medication. PRN Tylenol provided. She denies SI, HI, A/VH; continues to express disorganized thought content. She reported looking forward to discharge to [facility]. Patient remained in her room throughout this shift; observed sleeping and does not appear to be having difficulty. Plan : [facility] 05/29/22 .
[2022-05-29] MEDS: divalproex sodium 500mg tablet.DR PO SCH (07:46)
[2022-05-29] MEDS: pantoprazole 40mg Tablet.DR PO SCH (07:46)
[2022-05-29] MEDS: amLODIPine 5mg tablet PO SCH (07:50)
[2022-05-29 08:00] VITALS: BP 112/61
--- NOTE | 2022-05-29 10:22 | NUR ---
Discharge Presenting Issues: Pt's meds were delivered yesterday, per attending physician pt's ready to d/c. Interventions: Clinician had contact w/[facility] and confirmed d/c for today, per discussion [facility]'s front end loader driver will pickle processor at 11AM. Care team informed. Plan: Pt will d/c and transition to [facility] today. Lakesha Vega NURSING CONSULTANT Addendum: 05/29/22 at 1025 by Lakesha Vega SS Amended: Links added.
--- NOTE | 2022-05-29 11:15 | NUR ---
electrifier operator Note: Patient smiling and happy to leave. Patient ambulatory, steady gait with [facility] Gas Meter Mechanic. Patient's meds sent with truck driver teamster. Patient had no wounds but MRSA swab was performed and sent. Patient going to the [facility] for assistance. No distress observed.
== END 2022-05-29 11:15 | DRG 885 ==
LOC: ER 10:41 → ED HOLD 04-16 10:10 → ADULT MH 04-16 13:20
PROVIDERS: ADMIT Psychiatry & Neurology Psychiatry; ATTEND Psychiatry & Neurology Psychiatry
DX: F31.2 Bipolar disorder, current episode manic severe with psychotic features (principal); F03.90 Unspecified dementia, unspecified severity, without behavioral disturbance, psychotic disturbance, mood disturbance, and anxiety; E78.00 Pure hypercholesterolemia, unspecified; F12.10 Cannabis abuse, uncomplicated; F41.9 Anxiety disorder, unspecified; G40.909 Epilepsy, unspecified, not intractable, without status epilepticus; G89.29 Other chronic pain; Z96.651 Presence of right artificial knee joint; F09 Unspecified mental disorder due to known physiological condition; Z20.822 Contact with and (suspected) exposure to COVID-19; M54.9 Dorsalgia, unspecified; M79.606 Pain in leg, unspecified; I10 Essential (primary) hypertension; J44.9 Chronic obstructive pulmonary disease, unspecified; K21.9 Gastro-esophageal reflux disease without esophagitis; Z79.899 Other long term (current) drug therapy; Z87.442 Personal history of urinary calculi; Z87.891 Personal history of nicotine dependence; Z91.19 Patient's noncompliance with other medical treatment and regimen; Z56.0 Unemployment, unspecified; Z90.49 Acquired absence of other specified parts of digestive tract; Z81.8 Family history of other mental and behavioral disorders; Z91.14 Patient's other noncompliance with medication regimen
CPT/HCPCS: 36415; 71045; 80053; 80061; 80164; 80183; 80305; 81003; 84443; 85025; 87081; 87811; 99285

== ENCOUNTER 2023-08-20 13:41 | Outpatient (CLI) | payer OTHER, MEDICAID ==
[~2023-08-20 13:41] MED LIST changes: -AMLO10TA PO; -FOLI1TAB27 PO; +KEP500T PO; -LEVE500T PO; +LURA20TA8 PO; -LURA40TA2 PO; +NOR5T PO; +OLAN10TA73 PO; +OMEP20CA16 PO; -OMEP20TA43 PO; -OXCA150T14 PO; -QUET100T34 PO; -SERT150C PO; +[UNRECOGNIZED DRUG - CODE] PO
== END 2023-08-20 23:59 | disposition home or self-care (01) ==
LOC: RAD 13:41
PROVIDERS: ATTEND Nurse Practitioner Psychiatric/Mental Health
DX: Z79.899 Other long term (current) drug therapy (principal)
CPT/HCPCS: 93005

== ENCOUNTER 2024-08-10 12:31 | Outpatient (CLI) | payer BC, MEDICAID | END 2024-08-10 23:59 | disposition home or self-care (01) | LOC: RAD 12:31 | PROVIDERS: ATTEND Nurse Practitioner Psychiatric/Mental Health | DX: I49.1 Atrial premature depolarization (principal); F31.9 Bipolar disorder, unspecified; Z79.899 Other long term (current) drug therapy | CPT/HCPCS: 93005 ==